=== PATIENT | male | born 1975 | race Caucasian/White ===

== ENCOUNTER 2016-02-29 20:27 | Emergency (ER) | payer OTHER ==
[2016-02-29 20:41] VITALS: BP 130/71; PULSE 109; RESP 18; TEMP 97.6
[2016-02-29] MEDS ORDERED: DIPH,PERTUS(ACELL)TETVAC-LF 0.5 ML VIAL IM ONE (20:56)
--- NOTE | 2016-02-29 21:26 | XR ---
EXAMINATION TYPE: XR finger LT DATE OF EXAM: 02/29/2016 9:06 PM COMPARISON: NONE HISTORY: Laceration TECHNIQUE: 3 views FINDINGS: I see no fracture nor dislocation. There is no sign of a foreign body. There is skin defect at the tuft of the distal phalanx consistent with laceration. IMPRESSION: No fracture. Laceration on the lateral aspect of the distal phalanx of the ring finger.
--- NOTE | 2016-02-29 21:34 | ED ---
Wound/Laceration HPI - General Chief Complaint: Wound/Laceration Stated Complaint: IHS/Finger Lac Time Seen by Provider: 02/29/16 20:55 Source: patient Mode of arrival: ambulatory Limitations: no limitations - History of Present Illness Initial Comments: Patient is a 40-year-old male presenting to the with chief complaint of laceration over the left fourth finger after cutting it at work. Patient reports that he was chopping vegetables and sliced the tip of his finger. He states that they finger pad is still intact. He denies any decreased range of motion in peripheral paresthesias. Patient does not know the status of his tetanus vaccination. Patient denies any recent fever, chills, shortness of breath, chest pain, back pain, abdominal pain, nausea vomiting, numbness or tingling, dysuria or hematuria, constipation or diarrhea, headaches or visual changes, or any other current symptoms - Related Data Home Medications Medication Instructions Recorded Confirmed No Known Home Medications [No 02/29/16 02/29/16 Known Home Medications] Allergies Allergy/AdvReac Type Severity Reaction Status Date / Time tuberculin, purified protein Allergy Swelling,REDNESS Verified 10/16/15 13:49 deriva AND ITCHING/NEGATIVE CHEST XRAY Review of Systems ROS Statement: Those systems with pertinent positive or pertinent negative responses have been documented in the HPI. ROS Other: All systems not noted in ROS Statement are negative. Past Medical History Past Medical History: No Reported History History of Any Multi-Drug Resistant Organisms: None Reported Past Surgical History: Orthopedic Surgery Additional Past Surgical History / Comment(s): rt shoulder Past Anesthesia/Blood Transfusion Reactions: No Reported Reaction Past Psychological History: No Psychological Hx Reported Smoking Status: Current every day smoker Past Alcohol Use History: Occasional Additional Past Alcohol Use History / Comment(s): STARTED SMOKING AT AGE 15 SMOKED 1PPD/ RECENTLY QUIT DRINKING ALCOHOL WAS DRINKING 2 FIFTHS A DAY. PATIENT STATES HE IS A ALCHOLIC"PT STATES WAS SOBER FOR 90DAYS BUT FELL OFF WAGON 6 BEER DRANK LAST NIGHT Past Drug Use History: None Reported - Past Family History Mother Family Medical History: No Reported History General Exam - General Exam Comments Initial Comments: Patient is a pleasant 40-year-old male. He does not appear to be in any acute distress. Limitations: no limitations General appearance: alert, in no apparent distress Head exam: Present: atraumatic, normocephalic, normal inspection Eye exam: Present: normal appearance, PERRL, EOMI. Absent: scleral icterus, conjunctival injection, periorbital swelling ENT exam: Present: normal exam, mucous membranes moist Neck exam: Present: normal inspection. Absent: tenderness, meningismus, lymphadenopathy Respiratory exam: Present: normal lung sounds bilaterally. Absent: respiratory distress, wheezes, rales, rhonchi, stridor Cardiovascular Exam: Present: regular rate, normal rhythm, normal heart sounds. Absent: systolic murmur, diastolic murmur, rubs, gallop, clicks Left Elbow exam: Present: full ROM Forearm Wrist exam: Present: normal inspection, full ROM Hand Wrist exam: Present: laceration (2 cm laceration over the left anterior forefinger at the distal aspect.). Absent: normal inspection Hand L/R Front: 1 - laceration Neuro motor exam: Present: wrist extension intact, thumb opposition intact, thumb IP flexion intact, thumb adduction intact, fingers 2-5 abduction intact Neurosensory exam: Present: 2-point discrimination Back exam: Present: normal inspection Neurological exam: Present: alert, oriented X3, CN II-XII intact Psychiatric exam: Present: normal affect, normal mood Course Vital Signs 02/29/16 20:38 Temperature 97.6 F Pulse Rate 109 H Respiratory 18 Rate Blood Pressure 130/71 O2 Sat by Pulse 95 Oximetry Procedures - Laceration Laceration #1 Indication: laceration Site: hand (Left distal fourth finger.) Size (cm): 2 Description: linear Depth: simple, single layer Anesthetic Used: benzocaine 0.25% Anesthesia Technique: local infiltration Amount (mls): 3 Pre-repair: wound explored, irrigated extensively Type of Sutures: nylon Size of Sutures: 6-0 Number of Sutures: 3 Technique: simple, interrupted Patient Tolerated Procedure: well, no complications Medical Decision Making - Medical Decision Making Patient is a 40-year-old male presenting to the with a laceration over his left distal fourth finger after cutting it at work with a knife. Patient hand was soaked in warm water with iodine. Patient was given 3 sutures. I instructed the patient on return parameters and infection. Patient was given an updated tetanus vaccination. Patient will, and proximally 5-7 days to have the sutures removed. Patient understands treatment plan and will comply. Return parameters were discussed. - Radiology Data Radiology results: report reviewed X-ray of the left fourth finger shows no evidence of any fracture. There is evidence of the laceration. No evidence of any foreign bodies. Disposition Clinical Impression: Finger laceration Disposition: HOME SELF-CARE Condition: Good Instructions: Finger Laceration (ED) Additional Instructions: Please return to the emergency room in 5-7 days to have sutures removed. Please leave wound covered for the first 24-48 hours and then leave open to air after that time. Please use clean soap and water to clean the suture area to prevent scabbing over the top of your sutures. Please watch for any signs of infection which may include but not limited to increased pain, swelling, redness, fever or chills. Please return to the emergency room if any signs of infection do occur. Please return to the emergency room for any other concerns or complications. Referrals: None,Stated [Primary Care Provider] - 1-2 days Time of Disposition: 21:34
== END 2016-02-29 21:30 | disposition home or self-care (01) ==
LOC: EC 20:27
DX: S61.215A Laceration without foreign body of left ring finger without damage to nail, initial encounter (principal); F17.200 Nicotine dependence, unspecified, uncomplicated; Z23 Encounter for immunization; Z88.7 Allergy status to serum and vaccine; W26.0XXA Contact with knife, initial encounter; Y93.G3 Activity, cooking and baking; Y99.0 Civilian activity done for income or pay
CPT/HCPCS: 12001; 90471; 90715; 99283

== ENCOUNTER 2016-03-26 17:56 | Emergency (ER) | payer OTHER ==
[2016-03-26] MEDS ORDERED: SODIUM CHLORIDE 0.9% 1,000 ML IV ONE (18:33)
[2016-03-26] MEDS ORDERED: THIAMINE 100 MG/ML 2 ML VIAL IVP STA (18:33)
--- NOTE | 2016-03-26 18:38 | ED ---
General Adult HPI - General Chief complaint: Altered Mental Status Stated complaint: tingling in finger, confusion, head pressure Time Seen by Provider: 03/26/16 18:20 Source: patient Mode of arrival: wheelchair Limitations: no limitations - History of Present Illness Initial comments: This is a 40-year-old male with a history of alcohol abuse who drinks approximately 1/5 per day for the last 25 years or presents emergency department for mental status changes and confusion. He states he's had had throbbing and palpitations. The generalized body aches. He denies any nausea or vomiting. No diarrhea. No abdominal pain. He admits to some blurred vision however no double vision. No ataxia. He states that he just feels like he can't think appropriately. He states he's been eating normally. He has not ingested any other drugs or medications. Denies any volatile alcohol ingestion. He states is been going on for the last couple of weeks. No other complaints. - Related Data Previous Rx's Medication Instructions Recorded Ondansetron Odt [Zofran Odt] 4 mg PO Q8HR PRN #15 tab 03/26/16 chlordiazePOXIDE HCl [Librium] 25 mg PO TID PRN #30 capsule 03/26/16 Allergies Allergy/AdvReac Type Severity Reaction Status Date / Time tuberculin, purified protein Allergy Swelling/Redness Verified 03/26/16 18:36 deriva and Itching/NEGATIVE chest xray Review of Systems ROS Statement: Those systems with pertinent positive or pertinent negative responses have been documented in the HPI. ROS Other: All systems not noted in ROS Statement are negative. Past Medical History Past Medical History: No Reported History History of Any Multi-Drug Resistant Organisms: None Reported Past Surgical History: Orthopedic Surgery Additional Past Surgical History / Comment(s): rt shoulder Past Anesthesia/Blood Transfusion Reactions: No Reported Reaction Past Psychological History: No Psychological Hx Reported Smoking Status: Current every day smoker Past Alcohol Use History: Abuse, Daily, Heavy Additional Past Alcohol Use History / Comment(s): STARTED SMOKING AT AGE 15 SMOKED 1PPD/ RECENTLY QUIT DRINKING ALCOHOL WAS DRINKING 2 FIFTHS A DAY. PATIENT STATES HE IS A ALCHOLIC"PT STATES WAS SOBER FOR 90DAYS BUT FELL OFF WAGON 6 BEER DRANK LAST NIGHT Past Drug Use History: None Reported - Past Family History Mother Family Medical History: No Reported History General Exam - General Exam Comments Initial Comments: Constitutional: Awake alert Appears comfortable Head: Normocephalic atraumatic Eyes: no conjunctival injection No scleral icterus EOMI, pupils are 3 mm reactive bilaterally, no nystagmus Neck: No JVD Supple Heart: Tachycardia with regular rhythm normal S1-S2 no murmurs Lungs: Clear to auscultation bilaterally No wheezing No rales Abdomen: Soft nondistended nontender Extremities: Non edematous DP pulses intact Radial pulses intact Neuro: A&Ox3 cranial nerves II through XII are grossly intact, no ataxia with finger-nose and heel to bee testing, no pronator drift, no asterixis, 5 out of 5 strength in upper and lower extremities bilaterally Psych: Appropriate mood and affect, tearful Limitations: no limitations Course Vital Signs 03/26/16 03/26/16 18:13 20:05 Temperature 98 F Pulse Rate 109 H 92 Respiratory 22 18 Rate Blood Pressure 137/86 144/97 O2 Sat by Pulse 96 97 Oximetry EKG Findings - EKG Comments: EKG Findings:: EKG showing normal sinus rhythm with a rate of 76. No ST 7 changes or T-wave inversions. QTC is 409. Other intervals are normal. No ectopy. Medical Decision Making - Medical Decision Making Is a 40-year-old male presents emergency department for multiple complaints. He is found to be intoxicated with alcohol level of 341. He does have evidence for alcoholic hepatitis. No other lab abnormalities. Computed tomography scan was unremarkable. Chest x-ray was unremarkable. The patient was comfortable. He received IV fluids and thiamine emergency department. Heart rate improved to 80s to 90s. The patient appears clinically sober at bedside however is can go home with family. I told him that he needs to stop drinking or is going to continue to damage his liver. He agreed and is going to follow-up with [facility]. He was given Librium and Zofran for home. He can return if he has worsening symptoms. All questions were answered. - Lab Data Result diagrams: 03/26/16 19:11 03/26/16 19:11 Lab Results 03/26/16 03/26/16 03/26/16 Range/Units 19:11 19:11 19:11 WBC (3.8-10.6) k/uL RBC (4.30-5.90) m/uL Hgb (13.0-17.5) gm/dL Hct (39.0-53.0) % MCV (80.0-100.0) fL MCH (25.0-35.0) pg MCHC (31.0-37.0) g/dL RDW (11.5-15.5) % Plt Count (150-450) k/uL Neutrophils % % Lymphocytes % % Monocytes % % Eosinophils % % Basophils % % Neutrophils # (1.3-7.7) k/uL Lymphocytes # (1.0-4.8) k/uL Monocytes # (0-1.0) k/uL Eosinophils # (0-0.7) k/uL Basophils # (0-0.2) k/uL PT 9.6 (9.0-12.0) sec INR 0.9 (<1.1) APTT 22.4 (22.0-30.0) sec Sodium 145 (137-145) mmol/L Potassium 3.9 (3.5-5.1) mmol/L Chloride 105 (98-107) mmol/L Carbon Dioxide 24 (22-30) mmol/L Anion Gap 16 mmol/L BUN 8 L (9-20) mg/dL Creatinine 0.70 (0.66-1.25) mg/dL Est GFR (MDRD) Af Amer >60 (>60 ml/min/1.73 sqM) Est GFR (MDRD) Non-Af >60 (>60 ml/min/1.73 sqM) Glucose 175 H (74-99) mg/dL Calcium 9.2 (8.4-10.2) mg/dL Magnesium 1.9 (1.6-2.3) mg/dL Total Bilirubin 0.3 (0.2-1.3) mg/dL AST 198 H (17-59) U/L ALT 218 H (21-72) U/L Alkaline Phosphatase 70 (38-126) U/L Ammonia <9 (<30) umol/L Total Protein 8.4 H (6.3-8.2) g/dL Albumin 4.8 (3.5-5.0) g/dL Amylase 67 (30-110) U/L Lipase 97 (23-300) U/L Urine Color Urine Appearance (Clear) Urine pH (5.0-8.0) Ur Specific [place] (1.001-1.035) Urine Protein (Negative) Urine Glucose (UA) (Negative) Urine Ketones (Negative) Urine Blood (Negative) Urine Nitrate (Negative) Urine Bilirubin (Negative) Urine Urobilinogen (<2.0) mg/dL Ur Leukocyte Esterase (Negative) Urine RBC (0-5) /hpf Urine WBC (0-5) /hpf Urine Bacteria (None) /hpf Urine Mucus (None) /hpf Salicylates <1.0 mg/dL Urine Opiates Screen (NotDetected) Ur Oxycodone Screen (NotDetected) Urine Methadone Screen (NotDetected) Ur Propoxyphene Screen (NotDetected) Acetaminophen <10.0 ug/mL Ur Barbiturates Screen (NotDetected) U Tricyclic Antidepress (NotDetected) Ur Phencyclidine Scrn (NotDetected) Ur Amphetamines Screen (NotDetected) U Methamphetamines Scrn (NotDetected) U Benzodiazepines Scrn (NotDetected) Urine Cocaine Screen (NotDetected) U Marijuana (THC) Screen (NotDetected) Serum Alcohol 341 mg/dL Acetone, Qual Negative (Negative) 03/26/16 03/26/16 Range/Units 19:11 19:11 WBC 5.4 (3.8-10.6) k/uL RBC 4.59 (4.30-5.90) m/uL Hgb 14.5 (13.0-17.5) gm/dL Hct 44.4 (39.0-53.0) % MCV 96.7 (80.0-100.0) fL MCH 31.6 (25.0-35.0) pg MCHC 32.7 (31.0-37.0) g/dL RDW 14.4 (11.5-15.5) % Plt Count 239 (150-450) k/uL Neutrophils % 54 % Lymphocytes % 32 % Monocytes % 4 % Eosinophils % 4 % Basophils % 1 % Neutrophils # 2.9 (1.3-7.7) k/uL Lymphocytes # 1.7 (1.0-4.8) k/uL Monocytes # 0.2 (0-1.0) k/uL Eosinophils # 0.2 (0-0.7) k/uL Basophils # 0.1 (0-0.2) k/uL PT (9.0-12.0) sec INR (<1.1) APTT (22.0-30.0) sec Sodium (137-145) mmol/L Potassium (3.5-5.1) mmol/L Chloride (98-107) mmol/L Carbon Dioxide (22-30) mmol/L Anion Gap mmol/L BUN (9-20) mg/dL Creatinine (0.66-1.25) mg/dL Est GFR (MDRD) Af Amer (>60 ml/min/1.73 sqM) Est GFR (MDRD) Non-Af (>60 ml/min/1.73 sqM) Glucose (74-99) mg/dL Calcium (8.4-10.2) mg/dL Magnesium (1.6-2.3) mg/dL Total Bilirubin (0.2-1.3) mg/dL AST (17-59) U/L ALT (21-72) U/L Alkaline Phosphatase (38-126) U/L Ammonia (<30) umol/L Total Protein (6.3-8.2) g/dL Albumin (3.5-5.0) g/dL Amylase (30-110) U/L Lipase (23-300) U/L Urine Color Yellow Urine Appearance Clear (Clear) Urine pH 5.0 (5.0-8.0) Ur Specific [place] 1.007 (1.001-1.035) Urine Protein 1+ H (Negative) Urine Glucose (UA) Negative (Negative) Urine Ketones Negative (Negative) Urine Blood Trace H (Negative) Urine Nitrate Negative (Negative) Urine Bilirubin Negative (Negative) Urine Urobilinogen <2.0 (<2.0) mg/dL Ur Leukocyte Esterase Negative (Negative) Urine RBC <1 (0-5) /hpf Urine WBC 1 (0-5) /hpf Urine Bacteria Rare H (None) /hpf Urine Mucus Rare H (None) /hpf Salicylates mg/dL Urine Opiates Screen Not Detected (NotDetected) Ur Oxycodone Screen Not Detected (NotDetected) Urine Methadone Screen Not Detected (NotDetected) Ur Propoxyphene Screen Not Detected (NotDetected) Acetaminophen ug/mL Ur Barbiturates Screen Not Detected (NotDetected) U Tricyclic Antidepress Not Detected (NotDetected) Ur Phencyclidine Scrn Not Detected (NotDetected) Ur Amphetamines Screen Not Detected (NotDetected) U Methamphetamines Scrn Not Detected (NotDetected) U Benzodiazepines Scrn Not Detected (NotDetected) Urine Cocaine Screen Not Detected (NotDetected) U Marijuana (THC) Screen Not Detected (NotDetected) Serum Alcohol mg/dL Acetone, Qual (Negative) Disposition Clinical Impression: Alcoholic hepatitis, Alcoholic intoxication Disposition: HOME SELF-CARE Condition: Stable Instructions: Alcohol Intoxication (ED), Alcohol Dependence (ED), Alcoholic Hepatitis (ED) Prescriptions: Ondansetron Odt [Zofran Odt] 4 mg PO Q8HR PRN #15 tab PRN Reason: Nausea chlordiazePOXIDE HCl [Librium] 25 mg PO TID PRN #30 capsule PRN Reason: Withdrawal Referrals: None,Stated [Primary Care Provider] - 1-2 days
[2016-03-26 19:25] LABS: Aty Lym Flag Slight; Basophils # (A) 0.1 k/uL (0-0.2); Basophils % (A) 1 %; CH 31.8; Eosinophils # (A) 0.2 k/uL (0-0.7); Eosinophils % (A) 4 %; HCT 44.4 % (39.0-53.0); HDW 1.95; HGB 14.5 gm/dL (13.0-17.5); Luc # (Auto) 0.26; Luc % (Auto) 5; Lymphocytes # (A) 1.7 k/uL (1.0-4.8); Lymphocytes % (A) 32 %; MCH 31.6 pg (25.0-35.0); MCHC 32.7 g/dL (31.0-37.0); MCV 96.7 fL (80.0-100.0); Monocytes # (A) 0.2 k/uL (0-1.0); Monocytes % (A) 4 %; Neutrophils # (A) 2.9 k/uL (1.3-7.7); Neutrophils % (A) 54 %; RBC 4.59 m/uL (4.30-5.90); RDW 14.4 % (11.5-15.5); WBC 5.4 k/uL (3.8-10.6); WBC (Perox) 5.63
[2016-03-26 19:28] LABS: Appearance,Urine Clear (Clear); Bacteria,Urine Rare /hpf; Bilirubin,Urine Negative (Negative); Glucose,Urine (UA) Negative (Negative); Ketones,Urine Negative (Negative); Leukocyte Esterase,Urine Negative (Negative); Mucus,Urine Rare /hpf; Nitrite,Urine Negative (Negative); Particle Count 1511; Protein,Urine 1+ (Negative); RBC,Urine <1 /hpf (0-5); Specific Gravity,Urine 1.007 (1.001-1.035); UA Billing (MACRO vs. MICRO) MICRO; Urobilinogen,Urine <2.0 mg/dL (<2.0); WBC,Urine 1 /hpf (0-5)
[2016-03-26 19:32] LABS: ALT 218 U/L (21-72); AST 198 U/L (17-59); Acetaminophen <10.0 ug/mL; Alkaline Phosphatase 70 U/L (38-126); Amylase 67 U/L (30-110); Anion Gap 16 mmol/L; Blood Urea Nitrogen 8 mg/dL (9-20); Calcium 9.2 mg/dL (8.4-10.2); Carbon Dioxide 24 mmol/L (22-30); Chloride 105 mmol/L (98-107); Glucose 175 mg/dL (74-99); Magnesium 1.9 mg/dL (1.6-2.3); Non-African American GFR(MDRD) >60 (>60 ml/min/1.73 sqM); Potassium 3.9 mmol/L (3.5-5.1); Salicylate <1.0 mg/dL; Sodium 145 mmol/L (137-145); Total Bilirubin 0.3 mg/dL (0.2-1.3); Total Protein 8.4 g/dL (6.3-8.2)
[2016-03-26 19:34] LABS: INR 0.9 (<1.1); Partial Thromboplastin Time 22.4 sec (22.0-30.0); Prothrombin Time 9.6 sec (9.0-12.0)
[2016-03-26 19:50] LABS: Alcohol 341 mg/dL
--- NOTE | 2016-03-26 19:54 | CT ---
EXAMINATION TYPE: CT brain wo con DATE OF EXAM: 03/26/2016 7:50 PM COMPARISON: 10/08/2015 HISTORY: Pt states of head pressure and confusion. CT DLP: 1024.3 mGycm Automated exposure control for dose reduction was used. FINDINGS: The ventricles and sulci appear normal. There is no mass effect nor midline shift. There is no sign o f intracranial hemorrhage. Calvarium is intact. IMPRESSION: Negative unenhanced head CT scan. No change.
--- NOTE | 2016-03-26 20:15 | XR ---
EXAMINATION TYPE: XR chest 2V DATE OF EXAM: 03/26/2016 7:59 PM COMPARISON: NONE HISTORY: Palpitations TECHNIQUE: Frontal and lateral views of the chest are obtained. FINDINGS: Heart and mediastinum are normal. Lungs are clear. There is a calcified azygos lymph node. There is no pleural effusion. There are no hilar masses. There are chest leads. Bony thorax is intac t. IMPRESSION: No active cardiopulmonary disease.
[2016-03-26 21:05] VITALS: BP 148/96; PULSE 90; RESP 20; TEMP 97.2
== END 2016-03-26 21:05 | disposition home or self-care (01) ==
LOC: EC 17:56
DX: K70.10 Alcoholic hepatitis without ascites (principal); F10.229 Alcohol dependence with intoxication, unspecified; Y90.8 Blood alcohol level of 240 mg/100 ml or more; Z88.7 Allergy status to serum and vaccine; F17.200 Nicotine dependence, unspecified, uncomplicated
CPT/HCPCS: 36415; 93005; 80053; 82140; 82150; 82009; 83690; 83735; 85025; 85610; 85730; 81001; 80306; 83520 ×2; 80320; 71020; 70450; 99285; J3411

== ENCOUNTER 2016-05-24 21:51 | Emergency (ER) | payer OTHER ==
[2016-05-24 22:02] VITALS: BP 146/95; PULSE 93; RESP 16; TEMP 98.2
[2016-05-24] MEDS ORDERED: ACETAMINOPHEN TAB 325 MG TAB PO STA (23:48)
--- NOTE | 2016-05-24 23:52 | ED ---
Alcohol HPI - General Chief Complaint: Alcohol Stated Complaint: hypertension Time Seen by Provider: 05/24/16 23:02 Source: patient, RN notes reviewed Mode of arrival: EMS Limitations: no limitations - History of Present Illness Initial Comments: Patient is a 40-year-old male presents to the emergency room for evaluation high blood pressure. Patient is intoxicated. Patient states that his blood pressure has been spiking all day so he thought he should be evaluated. Patient 's current blood pressure is 122/75. Patient does admit that he drank about 3 beers and a half pint of vodka today. Patient states he drinks daily. Patient states when he sits up too fast he see's spots. Patient states having slight headache. Patient denies dizziness. Patient denies current chest pain, shortness of breath, abdominal pain, nausea, vomiting. Patient states he is mostly concerned about his blood pressure. - Related Data Previous Rx's Medication Instructions Recorded Ondansetron Odt [Zofran Odt] 4 mg PO Q8HR PRN #15 tab 03/26/16 chlordiazePOXIDE HCl [Librium] 25 mg PO TID PRN #30 capsule 03/26/16 Allergies Allergy/AdvReac Type Severity Reaction Status Date / Time tuberculin, purified protein Allergy Swelling/Redness Verified 05/24/16 22:02 deriva and Itching/NEGATIVE chest xray Review of Systems ROS Statement: Those systems with pertinent positive or pertinent negative responses have been documented in the HPI. ROS Other: All systems not noted in ROS Statement are negative. Past Medical History Past Medical History: No Reported History History of Any Multi-Drug Resistant Organisms: None Reported Past Surgical History: Orthopedic Surgery Additional Past Surgical History / Comment(s): rt elbow and shoulder Past Anesthesia/Blood Transfusion Reactions: No Reported Reaction Past Psychological History: No Psychological Hx Reported Smoking Status: Current every day smoker Past Alcohol Use History: Abuse, Daily, Heavy Additional Past Alcohol Use History / Comment(s): STARTED SMOKING AT AGE 15 SMOKED 1PPD/ RECENTLY QUIT DRINKING ALCOHOL WAS DRINKING 2 FIFTHS A DAY. PATIENT STATES HE IS A ALCHOLIC"PT STATES WAS SOBER FOR 90DAYS BUT FELL OFF [place]AGON 6 BEER DRANK LAST NIGHT Past Drug Use History: None Reported - Past Family History Mother Family Medical History: No Reported History General Exam - General Exam Comments Initial Comments: Sitting in exam room, no acute distress. Limitations: no limitations General appearance: alert, appears intoxicated Head exam: Present: atraumatic, normocephalic, normal inspection Eye exam: Present: normal appearance, PERRL, EOMI Pupils: Present: normal accommodation ENT exam: Present: normal exam Neck exam: Present: normal inspection Respiratory exam: Present: normal lung sounds bilaterally. Absent: respiratory distress Cardiovascular Exam: Present: regular rate, normal rhythm, normal heart sounds Extremities exam: Present: normal inspection Back exam: Present: normal inspection Neurological exam: Present: alert Expanded Cranial nerves: EOM's Intact: Normal Sensory exam: Upper Extremity Light Touch: Normal, Lower Extremity Light Touch: Normal Motor strength exam: RUE: 5, LUE: 5, RLE: 5, LLE: 5 Psychiatric exam: Present: normal affect, normal mood Skin exam: Present: warm, dry, intact, normal color. Absent: rash Course Vital Signs 05/24/16 21:55 Temperature 98.2 F Pulse Rate 93 Respiratory 16 Rate Blood Pressure 146/95 O2 Sat by Pulse 97 Oximetry Medical Decision Making - Medical Decision Making Patient is a 40-year-old male presents emergency room for evaluation of high blood pressure. On examination I redid patient's blood pressure and it read 122 /75. Patient given Tylenol for his headache. Discussed with patient to discontinue alcohol use which will improve his blood pressure. Advised patient to follow-up with his primary care provider. Patient is going to take the bus home. Return parameters discussed. Case discussed with Dr. Brandon. Disposition Clinical Impression: Alcohol intoxication, Headache Disposition: HOME SELF-CARE Condition: Good Instructions: Alcohol Intoxication (ED) Additional Instructions: Take Tylenol or Motrin as needed for headache. Refrain from drinking alcohol. Please follow up with primary care provider in 1-2 days. If any new symptom arises or symptoms worsen, return to ER as soon as possible. Referrals: None,Stated [Primary Care Provider] - 1-2 days Time of Disposition: 00:21
== END 2016-05-25 00:46 | disposition home or self-care (01) ==
LOC: EC 21:51
DX: F10.129 Alcohol abuse with intoxication, unspecified (principal); R51 Headache; F17.200 Nicotine dependence, unspecified, uncomplicated; Z88.8 Allergy status to other drugs, medicaments and biological substances
CPT/HCPCS: 99284

== ENCOUNTER 2016-07-18 12:35 | Observation (INO) | payer OTHER ==
[2016-07-18] MEDS ORDERED: SODIUM CHLORIDE 0.9% 1,000 ML IV STA (13:21)
[2016-07-18] MEDS ORDERED: ASPIRIN 81 MG CHEW PO STA (13:21)
[2016-07-18] MEDS ORDERED: NITROGLYCERIN OINT 1 INCH/GM PACKET TOPICAL STA (13:21)
[2016-07-18] MEDS ORDERED: MAG HYDROX/AL HYDROX/SIMETH 30 ML, HYOSCYAMINE ELIXIR 10 ML, CIMETIDINE HCL 300 MG PO STA ×3 (13:22)
[2016-07-18] MEDS ORDERED: DIAZEPAM 5 MG/ML 2 ML SYRINGE IVP STA (13:22)
--- NOTE | 2016-07-18 13:26 | ED ---
General Adult HPI - General Chief complaint: Chest Pain Stated complaint: Tightness in Chest Time Seen by Provider: 07/18/16 12:50 Source: patient, RN notes reviewed Mode of arrival: ambulatory Limitations: no limitations - History of Present Illness Initial comments: This is a 40-year-old male who presents emergency department with past medical history significant for smoking and hypertension. Patient states she also has a strong family history for heart disease. Patient states he is also an alcoholic and he has drank some today. Patient states the last 3 days he's had central chest pain with shortness of breath. Patient states the pain has not subsided all he thought initially it was heartburn but since it continues and is associated with shortness of breath it made him nervous a candidate emergency department. Patient states the pain does radiate to his back. Patient states there is no radiation to the arm or neck. Patient denies any episodes of diaphoresis. Patient denies any episodes of vomiting but he has been nauseated. Patient denies any recent fever chills or cough. Patient denies any history of palpitations. Patient denies any lightheadedness dizziness or near syncopal episode. - Related Data Home Medications Medication Instructions Recorded Confirmed Cholecalciferol [Vitamin D3] 2,000 unit PO DAILY 07/18/16 07/18/16 Lisinopril [Zestril] 10 mg PO DAILY 07/18/16 07/18/16 Naltrexone HCl [Revia] 50 mg PO DAILY 07/18/16 07/18/16 Allergies Allergy/AdvReac Type Severity Reaction Status Date / Time tuberculin, purified protein Allergy Swelling/Redness Verified 07/18/16 14:31 deriva and Itching/NEGATIVE chest xray Review of Systems ROS Statement: Those systems with pertinent positive or pertinent negative responses have been documented in the HPI. ROS Other: All systems not noted in ROS Statement are negative. Past Medical History Past Medical History: Hyperlipidemia History of Any Multi-Drug Resistant Organisms: None Reported Past Surgical History: Orthopedic Surgery Additional Past Surgical History / Comment(s): rt elbow and shoulder Past Anesthesia/Blood Transfusion Reactions: No Reported Reaction Past Psychological History: No Psychological Hx Reported Smoking Status: Current every day smoker Past Alcohol Use History: Abuse, Heavy Additional Past Alcohol Use History / Comment(s): STARTED SMOKING AT AGE 15 SMOKED 1PPD/ RECENTLY QUIT DRINKING ALCOHOL WAS DRINKING 2 FIFTHS A DAY. PATIENT STATES HE IS A ALCHOLIC"PT STATES WAS SOBER FOR 90DAYS BUT FELL OFF WAGON 6 BEER DRANK LAST NIGHT Past Drug Use History: None Reported - Past Family History Mother Family Medical History: No Reported History General Exam - General Exam Comments Initial Comments: GENERAL: Patient is well-developed and well-nourished. Patient is nontoxic and well- hydrated and is in mild distress. ENT: Neck is soft and supple. No significant lymphadenopathy is noted. Oropharynx is clear. Moist mucous membranes. Neck has full range of motion without eliciting any pain. EYES: The sclera were anicteric and conjunctiva were pink and moist. Extraocular movements were intact and pupils were equal round and reactive to light. Eyelids were unremarkable. PULMONARY: Unlabored respirations. Good breath sounds bilaterally. No audible rales rhonchi or wheezing was noted. CARDIOVASCULAR: There is a regular rate and rhythm without any murmurs gallops or rubs. ABDOMEN: Soft and nontender with normal bowel sounds. No palpable organomegaly was noted. There is no palpable pulsatile mass. SKIN: Skin is clear with no lesions or rashes and otherwise unremarkable. NEUROLOGIC: Patient is alert and oriented x3. Cranial nerves II through XII are grossly intact. Motor and sensory are also intact. Normal speech, volume and content. Symmetrical smile. MUSCULOSKELETAL: Normal extremities with adequate strength and full range of motion. No lower extremity swelling or edema. No calf tenderness. LYMPHATICS: No significant lymphadenopathy is noted PSYCHIATRIC: Normal psychiatric evaluation. Normal interpersonal interactions appears functionally intact in deals appropriately with others. No signs of depression. patient is mildly anxious Limitations: no limitations Course Vital Signs 07/18/16 07/18/16 07/18/16 12:48 13:05 13:34 Temperature 98.4 F 97.6 F Pulse Rate 93 85 73 Respiratory 18 16 18 Rate Blood Pressure 106/66 134/65 126/77 O2 Sat by Pulse 97 99 98 Oximetry Medical Decision Making - Medical Decision Making EKG shows normal sinus rhythm at 86 bpm LA interval is 130 QRS is 80 QT interval is 354 QTC is 423. Patient's EKG shows no ST segment elevation or depression or T-wave abdomen is noted. Patient's chest x-ray shows no acute abnormality.patient is going to get heparin because of his risk factors and clinical picture. - Lab Data Result diagrams: 07/18/16 13:40 07/18/16 13:40 Lab Results 07/18/16 07/18/16 07/18/16 Range/Units 13:40 13:40 13:40 WBC 12.2 H (3.8-10.6) k/uL RBC 4.05 L (4.30-5.90) m/uL Hgb 13.4 (13.0-17.5) gm/dL Hct 40.9 (39.0-53.0) % MCV 101.0 H (80.0-100.0) fL MCH 33.2 (25.0-35.0) pg MCHC 32.9 (31.0-37.0) g/dL RDW 14.8 (11.5-15.5) % Plt Count 234 (150-450) k/uL Neutrophils % 79 % Lymphocytes % 15 % Monocytes % 3 % Eosinophils % 2 % Basophils % 1 % Neutrophils # 9.6 H (1.3-7.7) k/uL Lymphocytes # 1.8 (1.0-4.8) k/uL Monocytes # 0.3 (0-1.0) k/uL Eosinophils # 0.2 (0-0.7) k/uL Basophils # 0.1 (0-0.2) k/uL Macrocytosis Slight PT (9.0-12.0) sec INR (<1.1) APTT (22.0-30.0) sec Sodium 137 (137-145) mmol/L Potassium 4.2 (3.5-5.1) mmol/L Chloride 102 (98-107) mmol/L Carbon Dioxide 26 (22-30) mmol/L Anion Gap 9 mmol/L BUN 7 L (9-20) mg/dL Creatinine 0.72 (0.66-1.25) mg/dL Est GFR (MDRD) Af Amer >60 (>60 ml/min/1.73 sqM) Est GFR (MDRD) Non-Af >60 (>60 ml/min/1.73 sqM) Glucose 88 (74-99) mg/dL Calcium 9.1 (8.4-10.2) mg/dL Magnesium 1.9 (1.6-2.3) mg/dL Total Bilirubin 0.6 (0.2-1.3) mg/dL AST 98 H (17-59) U/L ALT 77 H (21-72) U/L Alkaline Phosphatase 54 (38-126) U/L Total Creatine Kinase 302 H (55-170) U/L CK-MB (CK-2) 1.7 (0.0-2.4) ng/mL CK-MB (CK-2) Rel Index 0.6 Troponin I <0.012 (0.000-0.034) ng/mL Total Protein 6.1 L (6.3-8.2) g/dL Albumin 3.7 (3.5-5.0) g/dL Amylase 53 (30-110) U/L Lipase 103 (23-300) U/L Serum Alcohol 175 mg/dL 07/18/16 Range/Units 13:40 WBC (3.8-10.6) k/uL RBC (4.30-5.90) m/uL Hgb (13.0-17.5) gm/dL Hct (39.0-53.0) % MCV (80.0-100.0) fL MCH (25.0-35.0) pg MCHC (31.0-37.0) g/dL RDW (11.5-15.5) % Plt Count (150-450) k/uL Neutrophils % % Lymphocytes % % Monocytes % % Eosinophils % % Basophils % % Neutrophils # (1.3-7.7) k/uL Lymphocytes # (1.0-4.8) k/uL Monocytes # (0-1.0) k/uL Eosinophils # (0-0.7) k/uL Basophils # (0-0.2) k/uL Macrocytosis PT 9.5 (9.0-12.0) sec INR 0.9 (<1.1) APTT 22.3 (22.0-30.0) sec Sodium (137-145) mmol/L Potassium (3.5-5.1) mmol/L Chloride (98-107) mmol/L Carbon Dioxide (22-30) mmol/L Anion Gap mmol/L BUN (9-20) mg/dL Creatinine (0.66-1.25) mg/dL Est GFR (MDRD) Af Amer (>60 ml/min/1.73 sqM) Est GFR (MDRD) Non-Af (>60 ml/min/1.73 sqM) Glucose (74-99) mg/dL Calcium (8.4-10.2) mg/dL Magnesium (1.6-2.3) mg/dL Total Bilirubin (0.2-1.3) mg/dL AST (17-59) U/L ALT (21-72) U/L Alkaline Phosphatase (38-126) U/L Total Creatine Kinase (55-170) U/L CK-MB (CK-2) (0.0-2.4) ng/mL CK-MB (CK-2) Rel Index Troponin I (0.000-0.034) ng/mL Total Protein (6.3-8.2) g/dL Albumin (3.5-5.0) g/dL Amylase (30-110) U/L Lipase (23-300) U/L Serum Alcohol mg/dL Disposition Clinical Impression: Unstable angina pectoris Disposition: ADMITTED IP TO THIS HOSP Referrals: Concetta Doe MD [Primary Care Provider] - 1-2 days Time of Disposition: 15:06
--- NOTE | 2016-07-18 14:00 | XR ---
EXAMINATION TYPE: XR chest 2V DATE OF EXAM: 07/18/2016 COMPARISON: 03/26/16 HISTORY: Chest pain TECHNIQUE: Frontal and lateral views of the chest are obtained. FINDINGS: There is no focal air space opacity. No evidence for pneumothorax. No pleural effusion. The cardiac silhouette size is within normal limits. The osseous structures are grossly intact. IMPRESSION: 1. No acute cardiopulmonary process.
[2016-07-18 14:01] LABS: Basophils # (A) 0.1 k/uL (0-0.2); Basophils % (A) 1 %; CH 33.3; CHCM 33.1; Eosinophils # (A) 0.2 k/uL (0-0.7); Eosinophils % (A) 2 %; HCT 40.9 % (39.0-53.0); HDW 1.86; HGB 13.4 gm/dL (13.0-17.5); Luc # (Auto) 0.19; Luc % (Auto) 2; Lymphocytes # (A) 1.8 k/uL (1.0-4.8); Lymphocytes % (A) 15 %; MCH 33.2 pg (25.0-35.0); MCHC 32.9 g/dL (31.0-37.0); Macrocytosis Slight; Mean Platelet Volume 6.8; Monocytes # (A) 0.3 k/uL (0-1.0); Monocytes % (A) 3 %; Neutrophils # (A) 9.6 k/uL (1.3-7.7); Neutrophils % (A) 79 %; RBC 4.05 m/uL (4.30-5.90); RDW 14.8 % (11.5-15.5); WBC 12.2 k/uL (3.8-10.6); WBC (Perox) 12.67
[2016-07-18 14:10] LABS: INR 0.9 (<1.1); Partial Thromboplastin Time 22.3 sec (22.0-30.0); Prothrombin Time 9.5 sec (9.0-12.0)
[2016-07-18 14:18] LABS: ALT 77 U/L (21-72); AST 98 U/L (17-59); Alkaline Phosphatase 54 U/L (38-126); Amylase 53 U/L (30-110); Anion Gap 9 mmol/L; Blood Urea Nitrogen 7 mg/dL (9-20); Calcium 9.1 mg/dL (8.4-10.2); Carbon Dioxide 26 mmol/L (22-30); Chloride 102 mmol/L (98-107); Glucose 88 mg/dL (74-99); Magnesium 1.9 mg/dL (1.6-2.3); Non-African American GFR(MDRD) >60 (>60 ml/min/1.73 sqM); Potassium 4.2 mmol/L (3.5-5.1); Sodium 137 mmol/L (137-145); Total Bilirubin 0.6 mg/dL (0.2-1.3); Total Protein 6.1 g/dL (6.3-8.2)
[2016-07-18 14:22] LABS: Creatine Kinase 302 U/L (55-170)
[2016-07-18 14:23] LABS: Alcohol 175 mg/dL
[2016-07-18 14:35] LABS: Creatine Kinase MB 1.7 ng/mL (0.0-2.4); Troponin I <0.012 ng/mL (0.000-0.034)
[2016-07-18] MEDS ORDERED: NITROGLYCERIN SL TABS 0.4 MG TAB SUBLINGUAL PRN (15:07)
[2016-07-18] MEDS ORDERED: LORazepam 2 MG/ML SYRINGE IV PRN ×3 (17:14)
[2016-07-18] MEDS ORDERED: ACETAMINOPHEN TAB 325 MG TAB PO PRN (19:38)
[2016-07-18 20:12] LABS: Creatine Kinase 231 U/L (55-170)
[2016-07-18 20:25] LABS: Creatine Kinase MB 1.2 ng/mL (0.0-2.4); Troponin I <0.012 ng/mL (0.000-0.034)
[2016-07-18] MEDS: NITROGLYCERIN OINT 1 INCH/GM PACKET TOPICAL SCH (20:27)
[2016-07-18] MEDS ORDERED: MAG HYDROX/AL HYDROX/SIMETH 30 ML CUP PO PRN (20:43)
[2016-07-18] MEDS ORDERED: NICOTINE 14MG/24HR PATCH TRANSDERM SCH (21:00)
[2016-07-18] MEDS: FAMOTIDINE 20 MG TAB PO SCH (21:08)
--- NOTE | 2016-07-18 22:19 | HP ---
DATE OF ADMISSION: 07/18/2016 REASON FOR ADMISSION: Chest pain. HISTORY OF PRESENT ILLNESS: This is a 48-year-old gentleman who was got history of ongoing tobacco use and hypertension and significant alcohol use currently maintained on Naltrexone, comes into the hospital with complaints of chest pain that started while patient was ambulating. States that pressure is midsternal radiating to the back of his chest. At its worse is about 6 to 7 out of 10. No alleviating or exacerbating factors were discussed. Patient states it may be nitroglycerin has helped with his pain. The patient states that at this time the patient pain is improved. Initially, patient thought it was heartburn, which has been ongoing for about 3 days intermittently. However, the concern for cardiac etiology due to significant family history comes in the hospital for ongoing care. EKG did not reveal any ST-T wave changes. Initial cardiac enzyme was negative. Denies having headaches, blurry vision, urinary urgency or frequency, nausea, vomiting. Fourteen-point review of system was done; none pertinent other than was mentioned above. Home medications include: 1. Vitamin D3. 2. Zestril. 3. Naltrexone. ALLERGIES: ( ) AND PROTEIN. Past medical history includes dyslipidemia, hypertension. PAST SURGICAL HISTORY: Orthopedic surgery on the right elbow and shoulder. SOCIAL HISTORY: Smokes a pack of cigarettes daily, drinks a fifth of alcohol daily. Denies any illicit drug use. PHYSICAL EXAMINATION: VITALS: Temperature is within normal limits, respiratory rate 18, blood pressure 106/66, saturating 97% on room air. GENERALLY: Patient appears to be alert, oriented x3. HEENT: The pupils are equal and reactive to light and accommodation. HEART: S1, S2 present. No murmur appreciated. LUNGS: Good air entry. No wheezing or rhonchi noted. ABDOMINAL EXAM: Soft, nontender, no organomegaly appreciated. GENITOURINARY: No Bergman in place. EXTREMITIES: Pulses can be palpated distally. Denies any tenderness on gross palpation. SKIN: On a gross skin exam does not appear to have any purpura or any skin rashes that were noted. NEUROLOGICALLY: Appears to have tremors nonintentional. No focal motor or sensory deficits noted. Denies having any visual or auditory hallucinations. LABORATORY DATA: Hemoglobin 13.4, hematocrit 40.9, white count 12.2, platelets of 234, sodium 137, potassium 4.2, chloride 102, bicarb 26, BUN 7, creatinine 0.72. ASSESSMENT AND PLAN: 1. Atypical chest pain. Rule out acute coronary syndrome. 2. Acute alcohol withdrawal. 3. History of hypertension. 4. Ongoing tobacco use. PLAN: We will start the patient on CIWA protocol. Patient has already received aspirin. We will rule out ACS with cardiac enzymes. If patient appears to be symptom-free tomorrow we will discuss about obtaining a stress test potentially inpatient or outpatient. We will have cardiology evaluate the patient as well. We will start the patient on MVI bag as well overnight. Will follow.
[2016-07-19] MEDS: THIAMINE 100 MG TAB PO SCH ×2 (01:09→12:28)
[2016-07-19] MEDS: NITROGLYCERIN OINT 1 INCH/GM PACKET TOPICAL SCH ×3 (01:10→12:28)
[2016-07-19 03:00] LABS: Cholesterol 144 mg/dL (<200); HDL Cholesterol 94 mg/dL (40-60); Triglycerides 42 mg/dL (<150)
[2016-07-19 03:59] LABS: Creatine Kinase 264 U/L (55-170)
[2016-07-19 04:08] LABS: Troponin I <0.012 ng/mL (0.000-0.034)
[2016-07-19 08:22] VITALS: RESP 16
[2016-07-19] MEDS: FAMOTIDINE 20 MG TAB PO SCH (08:55)
[2016-07-19] MEDS ORDERED: NALTREXONE HCL 50 MG TAB PO SCH (09:00)
[2016-07-19] MEDS ORDERED: LISINOPRIL 10 MG TAB PO SCH (09:00)
[2016-07-19] MEDS ORDERED: ASPIRIN 325 MG TAB PO SCH (09:00)
--- NOTE | 2016-07-19 09:23 | CONS ---
DATE OF CONSULTATION: Isaiah is a 40-year-old gentleman with history of ETOH abuse, who presented to hospital with chest discomfort. He has history of hypertension and tobacco and comes in with chest pain. He describes a precordial chest discomfort that gets worse with movements and at its worst is about 5/10 intensity. It exacerbates with movements and apparently is relieved with sublingual nitroglycerin. At the time of my evaluation, he is pain free and hemodynamically stable. EKG did not reveal acute ST-T wave changes. Cardiac enzymes have been negative. There is coronary risk factors are in the form of smoking, hypertension, and family history of premature coronary artery disease. Medications at home include: 1. Zestril. 2. Naltrexone. 3. Along with vitamin D. ALLERGIES: There are no known drug allergies. Past medical history is significant for hypertension, and ETOH abuse. Past surgical history is significant for right elbow and shoulder surgery. SOCIAL HISTORY: Significant for smoking and ETOH abuse. REVIEW OF SYSTEMS: HEENT: Unremarkable. CARDIAC: As described above. RESPIRATORY: Negative. GI: Negative. GENITOURINARY: Negative. Allergy/immunology: Negative. SKIN: Negative. MUSCULOSKELETAL: Significant for arthritis. PSYCHOSOCIAL: Negative. ENDOCRINE: Negative. CONSTITUTIONAL: Negative. The rest of the system review is not relevant. On exam he is comfortable at rest. Vital signs are stable. There is no jugular venous distention. Carotid upstroke is normal. There is no bruit. Chest is clear to auscultation and percussion. Heart exam reveals first and second heart sounds. No gallop. ABDOMEN: Soft, nontender. Exam of the extremities did not reveal edema. Peripheral pulses are felt. Labs show that the LDL cholesterol is 42. Creatinine is normal. Hemoglobin is normal at 13.4. EKG does not reveal acute ST-T wave changes and cardiac enzymes are negative. ASSESSMENT: 1. Chest pain, atypical, noncardiac. 2. ETOH abuse with alcohol intoxication. 3. History of hypertension. PLAN: I am going to obtain a 2-D echo on him to document his LV function and wall motion and whenever he is stable from his ETOH withdrawal standpoint, he can be discharged home. I will consider an outpatient stress test on him primarily given the family history of coronary artery disease.
[2016-07-19 11:45] VITALS: BP 137/86; PULSE 57; TEMP 98
--- NOTE | 2016-07-19 13:18 | ECHOF ---
Referral Reason:chest pain MEASUREMENTS -------- HEIGHT: 182.9 cm WEIGHT: 80.3 kg BP: 140/40 RVIDd: 2.2 cm (< 3.3) IVSd: 1.0 cm (0.6 - 1.1) LVIDd: 4.5 cm (3.9 - 5.3) LVPWd: 0.9 cm (0.6 - 1.1) IVSs: 1.4 cm LVIDs: 3.3 cm LVPWs: 1.5 cm LA Diam: 3.0 cm (2.7 - 3.8) Ao Diam: 3.2 cm (2.0 - 3.7) AV Cusp: 2.3 cm (1.5 - 2.6) LA Diam: 3.3 cm (2.7 - 3.8) MV EXCURSION: 24.295 mm (> 18.000) MV EF SLOPE: 130 mm/s (70 - 150) EPSS: 0.6 cm MV E Juan: 0.80 m/s MV DecT: 277 ms MV A Juan: 0.74 m/s MV E/A Ratio: 1.08 RAP: 5.00 mmHg RVSP: 20.01 mmHg FINDINGS -------- Sinus rhythm. This was a technically adequate study. LV size, wall thickness and systolic function are normal, with an EF greater than 55%. The right ventricle is normal in size. The left atrial size is normal. The right atrial size is normal. The aortic valve is trileaflet, and appears structurally normal. No aortic stenosis or regurgitation. Mild mitral annular calcification present. Mild mitral regurgitation is present. Mild tricuspid regurgitation present. There is no evidence of pulmonary hypertension. The right ventricular systolic pressure, as measured by Doppler, is 20.01mmHg. There is no pulmonic regurgitation present. The aortic root size is normal. There is no pericardial effusion. CONCLUSIONS -------- 1. LV size, wall thickness and systolic function are normal, with an EF greater than 55%. 2. Mild mitral annular calcification present. 3. Mild mitral regurgitation is present. 4. Mild tricuspid regurgitation present. 5. There is no evidence of pulmonary hypertension. 6. The right ventricular systolic pressure, as measured by Doppler, is 20.01mmHg. LEARNING COACH: Ambar Cesar RDCS
--- NOTE | 2016-07-19 19:36 | P.DS ---
Providers Date of admission: 07/18/16 15:07 Attending physician: Cipriano Nice Consults: 07/18/16 15:07 Consult Physician Urgent Consulting Provider: [facility] Consult Reason/Comments: unstable angina Do you want consulting provider notified?: Yes Primary care physician: Concetta Doe [facility] Course: Hospital course This is a 48-year-old gentleman who was got history of ongoing tobacco use and hypertension and significant alcohol use currently maintained on Naltrexone, comes into the hospital with complaints of chest pain that started while patient was ambulating. States that pressure is midsternal radiating to the back of his chest. At its worse is about 6 to 7 out of 10. No alleviating or exacerbating factors were discussed. Patient states it may be nitroglycerin has helped with his pain. The patient states that at this time the patient pain is improved. Initially, patient thought it was heartburn, which has been ongoing for about 3 days intermittently. However, the concern for cardiac etiology due to significant family history comes in the hospital for ongoing care. EKG did not reveal any ST-T wave changes. Initial cardiac enzyme was negative. Denies having headaches, blurry vision, urinary urgency or frequency, nausea, vomiting. Fourteen-point review of system was done; none pertinent other than was mentioned above. 07/19/16 doing well denies recurrent symptoms no symptoms on ambulation . PHYSICAL EXAMINATION: GENERALLY: Patient appears to be alert, oriented x3. HEENT: The pupils are equal and reactive to light and accommodation. HEART: S1, S2 present. No murmur appreciated. LUNGS: Good air entry. No wheezing or rhonchi noted. ABDOMINAL EXAM: Soft, nontender, no organomegaly appreciated. GENITOURINARY: No Bergman in place. EXTREMITIES: Pulses can be palpated distally. Denies any tenderness on gross palpation. SKIN: On a gross skin exam does not appear to have any purpura or any skin rashes that were noted. NEUROLOGICALLY: Appears to have tremors nonintentional. No focal motor or sensory deficits noted. Denies having any visual or auditory hallucinations. ASSESSMENT AND PLAN: 1. Atypical chest pain. Ruled out acute coronary syndrome. 2. Acute alcohol withdrawal. Pt has naltrexone, discussed cessation again 3. History of hypertension. 4. Ongoing tobacco use. . Plan - Discharge Summary New Discharge Prescriptions: New RX: Famotidine [Pepcid] 20 mg PO BID #60 tab RX: Mag Hydrox/Al Hydrox/Simeth [Maalox] 30 ml PO Q4HR PRN dose PRN Reason: Gi Upset Continue RX: Naltrexone HCl [Revia] 50 mg PO DAILY RX: Lisinopril [Zestril] 10 mg PO DAILY RX: Cholecalciferol [Vitamin D3] 2,000 unit PO DAILY Discharge Medication List RX: Cholecalciferol [Vitamin D3] 2,000 unit PO DAILY 07/18/16 [History] RX: Lisinopril [Zestril] 10 mg PO DAILY 07/18/16 [History] RX: Naltrexone HCl [Revia] 50 mg PO DAILY 07/18/16 [History] RX: Famotidine [Pepcid] 20 mg PO BID #60 tab 07/19/16 [Rx] RX: Mag Hydrox/Al Hydrox/Simeth [Maalox] 30 ml PO Q4HR PRN dose 07/19/16 [Rx] Follow up Appointment(s)/Referral(s): Concetta Doe MD [Primary Care Provider] - 1-2 days Geronimo Wisdom MD [STAFF PHYSICIAN] - 1 Week Patient Instructions/Handouts: Chest Pain (DC) Discharge Disposition: HOME SELF-CARE
== END 2016-07-19 16:02 | disposition home or self-care (01) ==
LOC: EC 12:35 → 3OBS 15:07
PROVIDERS: ADMIT Hospitalist; ATTEND Hospitalist
DX: R07.89 Other chest pain (principal); R06.02 Shortness of breath; R07.2 Precordial pain; F10.239 Alcohol dependence with withdrawal, unspecified; I10 Essential (primary) hypertension; E78.5 Hyperlipidemia, unspecified; F17.210 Nicotine dependence, cigarettes, uncomplicated; Z82.49 Family history of ischemic heart disease and other diseases of the circulatory system; Z79.899 Other long term (current) drug therapy; Z88.8 Allergy status to other drugs, medicaments and biological substances
CPT/HCPCS: 99285; 96374 ×2; 96361 ×5; 96375; 36415; 93005; 93306; 80061; 80053; 82150; 82550 ×2; 82553 ×2; 83690; 83735; 84484 ×2; 85025; 85610; 85730; 80320; 71020; G0378 ×2; S4990; J2060; J3360

== ENCOUNTER 2016-10-29 20:30 | Emergency (ER) | payer OTHER ==
[2016-10-29] MEDS ORDERED: SODIUM CHLORIDE 0.9% 500 ML IV STA (21:23)
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
--- NOTE | 2016-10-29 21:53 | XR ---
EXAMINATION TYPE: XR chest 1V portable DATE OF EXAM: 10/29/2016 COMPARISON: 07/18/2016 HISTORY: Chest pain TECHNIQUE: Single frontal view of the chest is obtained. FINDINGS: Heart and mediastinum are normal. Lungs are clear. There is no sign of pleural effusion or pneumothorax. Bony thorax is intact. IMPRESSION: Normal chest. No change.
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
--- NOTE | 2016-10-29 22:13 | CT ---
EXAMINATION TYPE: CT brain freda faustin DATE OF EXAM: 10/29/2016 COMPARISON: NONE HISTORY: CT DLP: mGycm Automated exposure control for dose reduction was used. TECHNIQUE: CT scan of the head and cervical spine are performed without contrast. FINDINGS: There is right-sided periorbital soft tissue swelling. Ventricles of normal size. There i s no mass effect nor midline shift. There is no sign of intracranial hemorrhage. The calvarium is int act. The cervical vertebra have normal alignment. There is degenerative spurring of the endplates at C3-4 and C6-7. There is some encroachment into the spinal canal to a mild degree at C6-7. The skull base i s intact. I see no fracture. IMPRESSION: Negative CT scan of the brain. Spondylotic changes in the cervical spine. No fracture.
[2016-10-29 22:28] LABS: Appearance,Urine Clear (Clear); Bilirubin,Urine Negative (Negative); Glucose,Urine (UA) Negative (Negative); Ketones,Urine Negative (Negative); Leukocyte Esterase,Urine Negative (Negative); Nitrite,Urine Negative (Negative); PH, Urine 5.5 (5.0-8.0); Protein,Urine Negative (Negative); Specific Gravity,Urine 1.003 (1.001-1.035); UA Billing (MACRO vs. MICRO) CHEM; Urobilinogen,Urine <2.0 mg/dL (<2.0)
[2016-10-29 22:29] LABS: Basophils # (A) 0.1 k/uL (0-0.2); Basophils % (A) 0 %; CH 33.4; CHCM 33.6; Eosinophils # (A) 0.1 k/uL (0-0.7); Eosinophils % (A) 1 %; HCT 42.6 % (39.0-53.0); HDW 1.97; HGB 14.5 gm/dL (13.0-17.5); Luc # (Auto) 0.18; Luc % (Auto) 1; Lymphocytes # (A) 1.3 k/uL (1.0-4.8); Lymphocytes % (A) 8 %; MCH 34.1 pg (25.0-35.0); MCHC 34.1 g/dL (31.0-37.0); MCV 99.9 fL (80.0-100.0); Mean Platelet Volume 6.8; Monocytes # (A) 0.6 k/uL (0-1.0); Monocytes % (A) 3 %; Neutrophils # (A) 14.6 k/uL (1.3-7.7); Neutrophils % (A) 87 %; RBC 4.27 m/uL (4.30-5.90); RDW 12.9 % (11.5-15.5); WBC 16.9 k/uL (3.8-10.6); WBC (Perox) 17.55
[2016-10-29 22:35] LABS: ALT 71 U/L (21-72); AST 57 U/L (17-59); Alkaline Phosphatase 63 U/L (38-126); Anion Gap 12 mmol/L; Blood Urea Nitrogen 7 mg/dL (9-20); Calcium 9.1 mg/dL (8.4-10.2); Carbon Dioxide 19 mmol/L (22-30); Chloride 100 mmol/L (98-107); Glucose 101 mg/dL (74-99); Non-African American GFR(MDRD) >60 (>60 ml/min/1.73 sqM); Sodium 131 mmol/L (137-145); Total Bilirubin 0.4 mg/dL (0.2-1.3); Total Protein 6.1 g/dL (6.3-8.2)
[2016-10-29 22:36] LABS: Partial Thromboplastin Time 22.6 sec (22.0-30.0); Prothrombin Time 9.9 sec (9.0-12.0)
[2016-10-29] MEDS ORDERED: SODIUM CHLORIDE 0.9% 2,500 ML IV ONE (22:36)
[2016-10-29 22:38] LABS: Alcohol 224 mg/dL
[2016-10-30 00:39] VITALS: BP 136/84; PULSE 110; RESP 16; TEMP 99
[2016-10-30] MEDS ORDERED: SODIUM CHLORIDE 0.9% 1,000 ML IV STA (00:39)
== END 2016-10-30 00:42 | disposition home or self-care (01) ==
LOC: EC 20:30
DX: S02.2XXA Fracture of nasal bones, initial encounter for closed fracture (principal); S01.81XA Laceration without foreign body of other part of head, initial encounter; S09.90XA Unspecified injury of head, initial encounter; F10.120 Alcohol abuse with intoxication, uncomplicated; F17.200 Nicotine dependence, unspecified, uncomplicated; Z79.899 Other long term (current) drug therapy; Z88.7 Allergy status to serum and vaccine; Y04.0XXA Assault by unarmed brawl or fight, initial encounter; Y93.55 Activity, bike riding
CPT/HCPCS: 36415; 70450; 70486; 71010; 72125; 80053; 80306; 80320; 81003; 83605; 84484; 85025; 85610; 85730; 86850; 86900; 86901; 93005; 96360; 96361; 99285

== ENCOUNTER 2017-09-03 09:20 | Emergency (ER) | payer OTHER ==
[2017-09-03 09:36] VITALS: RESP 18
--- NOTE | 2017-09-03 10:07 | XR ---
EXAMINATION TYPE: XR hand complete LT DATE OF EXAM: 09/03/2017 CLINICAL HISTORY: Left hand injury with pain between the first and second digit. TECHNIQUE: Frontal, lateral and oblique images of the left hand are obtained. COMPARISON: None. FINDINGS: There is no acute fracture/dislocation evident in the left hand. The there are mild deg enerative changes of the first carpal metacarpal joint with opposing surface sclerosis and joint spac e narrowing. Additionally these changes are seen with small marginal osteophytes of the distal interp halangeal joints and the first metacarpal phalangeal joint. Within the scaphoid distal pole there is a solitary osseous cysts, typically degenerative. The overlying soft tissue appears unremarkable. IMPRESSION: 1. No acute fracture or dislocation in the left hand. 2. Mild arthropathy of the first carpometacarpal joint and distal interphalangeal joints in atypical distribution of osteoarthritis.
--- NOTE | 2017-09-03 10:31 | ED ---
Upper Extremity HPI - General Chief Complaint: Extremity Injury, Upper Stated Complaint: left hand injury Time Seen by Provider: 09/03/17 09:39 Source: patient, RN notes reviewed, old records reviewed Mode of arrival: ambulatory Limitations: no limitations - History of Present Illness Initial Comments: Patient is a 41-year-old male presents emergency Department chief complaint of left hand pain. Patient reports that he fell one week ago cut himself on his left hand. Patient states that he had pain and swelling initially but then it improved. Patient reports that yesterday he donated plasma. He states he woke up this morning and his hand was swollen. Patient reports that he has had no other symptoms. Reports no peripheral paresthesias. No previous injury fractures hand. - Related Data Home Medications Medication Instructions Recorded Confirmed Lisinopril [Zestril] 10 mg PO QAM 07/18/16 09/03/17 Cholecalciferol (Vitamin D3) 2,000 unit PO DAILY 10/29/16 09/03/17 [Vitamin D3] Omeprazole 20 mg PO DAILY 09/03/17 09/03/17 Venlafaxine HCl ER [Effexor Xr] 37.5 mg PO DAILY 09/03/17 09/03/17 Previous Rx's Medication Instructions Recorded Ibuprofen 800 mg PO TID #20 tablet 09/03/17 Allergies Allergy/AdvReac Type Severity Reaction Status Date / Time tuberculin, purified protein Allergy Swelling/Redness Verified 09/03/17 09:58 deriva and Itching/NEGATIVE chest xray Review of Systems ROS Statement: Those systems with pertinent positive or pertinent negative responses have been documented in the HPI. ROS Other: All systems not noted in ROS Statement are negative. Past Medical History Past Medical History: Hypertension Additional Past Medical History / Comment(s): ETOH,PER PT" LIVER ENZYMES ELEVATED", PAST FALL, RT ELBO FX(SX DONE), HAND TREMORS History of Any Multi-Drug Resistant Organisms: None Reported Past Surgical History: Orthopedic Surgery Additional Past Surgical History / Comment(s): rt elbow PLATE/SCREWS and rt shoulder torn ligament -repair done, wisdom teeth extracted. Past Anesthesia/Blood Transfusion Reactions: No Reported Reaction Past Psychological History: Depression Smoking Status: Current every day smoker Past Alcohol Use History: Daily Past Drug Use History: Marijuana - Past Family History Mother Family Medical History: Congestive Heart Failure (CHF) Additional Family Medical History / Comment(s): AT AGE 62 FROM CHF. MOM'S PARENTS BOTH HAD CARDIAC PROBLEMS AND HAD CABG"S General Exam - General Exam Comments Initial Comments: 41-year-old male. Alert and oriented. Limitations: no limitations General appearance: alert, in no apparent distress Head exam: Present: atraumatic, normocephalic, normal inspection Eye exam: Present: normal appearance, PERRL, EOMI. Absent: scleral icterus, conjunctival injection, periorbital swelling ENT exam: Present: normal exam, mucous membranes moist Neck exam: Present: normal inspection. Absent: tenderness, meningismus, lymphadenopathy Respiratory exam: Present: normal lung sounds bilaterally. Absent: respiratory distress, wheezes, rales, rhonchi, stridor Cardiovascular Exam: Present: regular rate, normal rhythm, normal heart sounds. Absent: systolic murmur, diastolic murmur, rubs, gallop, clicks GI/Abdominal exam: Present: soft, normal bowel sounds. Absent: distended, tenderness, guarding, rebound, rigid Extremities exam: Present: normal inspection, full ROM, normal capillary refill. Absent: tenderness, pedal edema, joint swelling, calf tenderness Left Upper Arm exam: Present: normal inspection, full ROM Elbow exam: Present: normal inspection, full ROM Forearm Wrist exam: Present: full ROM, swelling (She reports some tenderness and swelling over the snuffbox.). Absent: normal inspection Hand Wrist exam: Present: full ROM, tenderness (Over snuffbox.), swelling. Absent: normal inspection Neuro motor exam: Present: wrist extension intact, thumb opposition intact, thumb IP flexion intact, thumb adduction intact, fingers 2-5 abduction intact Vascular: Present: normal capillary refill Back exam: Present: normal inspection Neurological exam: Present: alert, oriented X3, CN II-XII intact Psychiatric exam: Present: normal affect, normal mood Skin exam: Present: warm, dry, intact, normal color. Absent: rash Course Vital Signs 09/03/17 09:32 Temperature 98.8 F Pulse Rate 88 Respiratory 18 Rate Blood Pressure 114/73 O2 Sat by Pulse 98 Oximetry Procedures - Orthopedic Splinting/Casting Injury #1 Side: left Upper Extremity Injury Location: hand Upper Extremity Immobilizer: thumb spica, Severiano wrap, synthetic pre-padded splint Medical Decision Making - Medical Decision Making This is a 41-year-old male presents emergency Department chief complaint of left hand pain. He reports that he injured it one week ago. He states that the swelling diminished after that time. He states that yesterday after donating plasma has had some swelling in the hand. He reports pain over the snuffbox. At this time x-rays reviewed and shows no evidence of acute fracture. There is evidence of osteoarthritis within the first carpometacarpal joint. He was placed in a thumb spica splint. Discussed WITH orthopedic. Discussed likely the swelling is more related to the recent plasma donation. Patient understands treatment plan will comply. Return parameters were discussed. Discussed rest ice and elevate the extremity. - Radiology Data Radiology results: report reviewed No acute fracture dislocation of the left hand. Mild arthropathy of the first minute carpometacarpal joint distal interphalangeal joints and atypical distribution of osteoporosis radius. Disposition Clinical Impression: Hand sprain Disposition: HOME SELF-CARE Condition: Good Instructions: Hand Sprain (ED) Additional Instructions: Rest, ice, elevate extremity. Patient should wear a splint. Follow-up with ortho 1 week for repeat x-ray. Prescriptions: Ibuprofen 800 mg PO TID #20 tablet Is patient prescribed a controlled substance at d/c from ED?: No When asked, does pt state using other controlled substances?: No If prescribed controlled substance>3 days was MAPS reviewed?: No If opioid is for acute pain is fill amount 7 days or less?: No If Rx opioid, was Start Talking consent form obtained?: No Referrals: Concetta Doe MD [Primary Care Provider] - 1-2 days Time of Disposition: 10:29
[2017-09-03 11:13] VITALS: BP 130/83; PULSE 83; TEMP 98.2
== END 2017-09-03 11:12 | disposition home or self-care (01) ==
LOC: EC 09:20
DX: S63.92XA Sprain of unspecified part of left wrist and hand, initial encounter (principal); M19.042 Primary osteoarthritis, left hand; I10 Essential (primary) hypertension; F32.9 Major depressive disorder, single episode, unspecified; F17.200 Nicotine dependence, unspecified, uncomplicated; Z88.8 Allergy status to other drugs, medicaments and biological substances; Z79.899 Other long term (current) drug therapy; W19.XXXA Unspecified fall, initial encounter
CPT/HCPCS: 29125; 99284

== ENCOUNTER 2017-09-27 10:04 | Emergency (ER) | payer OTHER ==
[2017-09-27 10:11] VITALS: BP 106/67; PULSE 92; RESP 18; TEMP 98.4
--- NOTE | 2017-09-27 10:18 | ED ---
General Adult HPI - General Chief complaint: Extremity Injury, Lower Stated complaint: Left Hand Injury Time Seen by Provider: 09/27/17 10:12 Source: patient, RN notes reviewed Mode of arrival: ambulatory Limitations: no limitations - History of Present Illness Initial comments: Patient's a 41-year-old male presented to the emergency room today with chief complaint of an injury to the left wrist area. He does admit that it was a trip and fall that occurred a few weeks ago. He states is still bothering him. States it is worse with certain movements. Patient denies any other complaints or symptoms. Patient denies any recent fever, chills, shortness of breath, chest pain, back pain, abdominal pain, nausea or vomiting, numbness or tingling, headaches or visual changes, or any other complaints. - Related Data Home Medications Medication Instructions Recorded Confirmed RX: Lisinopril [Zestril] 10 mg PO QAM 07/18/16 09/27/17 Cholecalciferol (Vitamin D3) 2,000 unit PO DAILY 10/29/16 09/27/17 [Vitamin D3] RX: Omeprazole 20 mg PO DAILY 09/03/17 09/27/17 Venlafaxine HCl ER [Effexor Xr] 37.5 mg PO DAILY 09/03/17 09/27/17 Previous Rx's Medication Instructions Recorded RX: Ibuprofen 800 mg PO TID #20 tablet 09/03/17 Allergies Allergy/AdvReac Type Severity Reaction Status Date / Time tuberculin, purified protein Allergy Swelling/Redness Verified 09/27/17 10:11 deriva and Itching/NEGATIVE chest xray Review of Systems ROS Statement: Those systems with pertinent positive or pertinent negative responses have been documented in the HPI. ROS Other: All systems not noted in ROS Statement are negative. Past Medical History Past Medical History: Hypertension Additional Past Medical History / Comment(s): ETOH,PER PT" LIVER ENZYMES ELEVATED", PAST FALL, RT ELBO FX(SX DONE), HAND TREMORS History of Any Multi-Drug Resistant Organisms: None Reported Past Surgical History: Orthopedic Surgery Additional Past Surgical History / Comment(s): rt elbow PLATE/SCREWS and rt shoulder torn ligament -repair done, wisdom teeth extracted. Past Anesthesia/Blood Transfusion Reactions: No Reported Reaction Past Psychological History: Depression Smoking Status: Current every day smoker Past Alcohol Use History: Daily Past Drug Use History: Marijuana - Past Family History Mother Family Medical History: Congestive Heart Failure (CHF) Additional Family Medical History / Comment(s): AT AGE 62 FROM CHF. MOM'S PARENTS BOTH HAD CARDIAC PROBLEMS AND HAD CABG"S General Exam - General Exam Comments Initial Comments: General: The patient is awake and alert, in no distress, and does not appear acutely ill. Eye: extra-ocular movements are intact. No nystagmus. There is normal conjunctiva bilaterally. No signs of icterus. Ears, nose, mouth and throat: There are moist mucous membranes and no oral lesions. Neck: The neck is supple Musculoskeletal: Normal ROM. Bilaterally tender over the proximal and second metacarpals and radial wrist area. Radial pulse 2+. Strength 5/5. Sensations intact. Neurological: A&O x 3. CN II-XII intact, There are no obvious motor or sensory deficits. Coordination appears grossly intact. Speech is normal. Skin: Skin is warm and dry and no rashes or lesions are noted. Psychiatric: Cooperative, appropriate mood & affect, normal judgment. Limitations: no limitations Course Vital Signs 09/27/17 10:08 Temperature 98.4 F Pulse Rate 92 Respiratory 18 Rate Blood Pressure 106/67 O2 Sat by Pulse 96 Oximetry Medical Decision Making - Medical Decision Making Patient's x-ray has been reviewed and is negative for any evidence of fracture dislocation. Has been 3 weeks. Patient was given a Severiano wrap here the emergency room. Advised no to sleep with this on. Advised continued ice elevate the affected area and use ibuprofen for pain. Advised return for any other concerns. Disposition Clinical Impression: Wrist sprain Disposition: HOME SELF-CARE Condition: Good Instructions: Wrist Sprain (ED) Additional Instructions: Please continue to ice elevate the affected area and use ibuprofen for pain. Please follow-up with orthopedics over the next 2 days. Please return to emergency room for any other concerns. Is patient prescribed a controlled substance at d/c from ED?: No Referrals: Concetta Doe MD [Primary Care Provider] - 1-2 days Tani Winter MD [Medical Doctor] - 1-2 days Time of Disposition: 11:15
--- NOTE | 2017-09-27 10:33 | XR ---
EXAMINATION TYPE: XR wrist complete LT , 4 VIEWS DATE OF EXAM ORDERED: 09/27/2017 HISTORY: Pain. COMPARISON: None. FINDINGS: There is pseudocystic change in the scaphoid. No fracture, dislocation or other acute osse ous lesion is seen. IMPRESSION: NO ACUTE OSSEOUS LESION.
== END 2017-09-27 11:40 | disposition home or self-care (01) ==
LOC: EC 10:04
DX: S63.502A Unspecified sprain of left wrist, initial encounter (principal); I10 Essential (primary) hypertension; F32.9 Major depressive disorder, single episode, unspecified; F17.200 Nicotine dependence, unspecified, uncomplicated; Z79.899 Other long term (current) drug therapy; Z88.7 Allergy status to serum and vaccine; W01.0XXA Fall on same level from slipping, tripping and stumbling without subsequent striking against object, initial encounter
CPT/HCPCS: 99283

== ENCOUNTER 2017-11-02 20:29 | Observation (INO) | payer OTHER ==
[~2017-11-02 20:29] MED LIST: THIAMINE 100 MG TAB PO SCH
[2017-11-02] MEDS ORDERED: SODIUM CHLORIDE 0.9% 1,000 ML IV STA (21:02)
[2017-11-02] MEDS ORDERED: SODIUM CHLORIDE 0.9% 1,000 ML with MVI, ADULT NO.4 WITH VIT K 10 ML, THIAMINE 100 MG, F... IV ONE ×4 (21:02)
[2017-11-02 21:13] LABS: Basophils # (A) 0.1 k/uL (0-0.2); Basophils % (A) 1 %; Eosinophils # (A) 0.3 k/uL (0-0.7); Eosinophils % (A) 3 %; HCT 42.4 % (39.0-53.0); HGB 13.8 gm/dL (13.0-17.5); Lymphocytes # (A) 2.7 k/uL (1.0-4.8); Lymphocytes % (A) 27 %; MCH 32.5 pg (25.0-35.0); MCHC 32.5 g/dL (31.0-37.0); MCV 99.9 fL (80.0-100.0); Mean Platelet Volume 6.6; Monocytes # (A) 0.4 k/uL (0-1.0); Monocytes % (A) 4 %; Neutrophils # (A) 6.3 k/uL (1.3-7.7); Neutrophils % (A) 63 %; Platelet Count 337 k/uL (150-450); RBC 4.25 m/uL (4.30-5.90); RDW 14.1 % (11.5-15.5)
[2017-11-02 21:15] LABS: Appearance,Urine Clear (Clear); Bilirubin,Urine Negative (Negative); Blood,Urine Negative (Negative); Color,Urine Light Yellow; Glucose,Urine (UA) Negative (Negative); Ketones,Urine Negative (Negative); Leukocyte Esterase,Urine Negative (Negative); Nitrite,Urine Negative (Negative); PH, Urine 5.5 (5.0-8.0); Protein,Urine Negative (Negative); Specific Gravity,Urine 1.003 (1.001-1.035); Urobilinogen,Urine <2.0 mg/dL (<2.0)
[2017-11-02 21:27] LABS: ALT 33 U/L (21-72); AST 27 U/L (17-59); Albumin 3.4 g/dL (3.5-5.0); Alkaline Phosphatase 41 U/L (38-126); Anion Gap 8 mmol/L; Blood Urea Nitrogen 9 mg/dL (9-20); Calcium 8.9 mg/dL (8.4-10.2); Carbon Dioxide 26 mmol/L (22-30); Chloride 105 mmol/L (98-107); Glucose 86 mg/dL (74-99); Lipase 57 U/L (23-300); Magnesium 1.9 mg/dL (1.6-2.3); Potassium 4.2 mmol/L (3.5-5.1); Sodium 139 mmol/L (137-145); Total Bilirubin 0.3 mg/dL (0.2-1.3); Total Protein 6.1 g/dL (6.3-8.2)
[2017-11-02 21:36] LABS: Alcohol 341 mg/dL
[2017-11-02] MEDS ORDERED: ONDANSETRON 4 MG/2 ML VIAL IVP PRN (21:54)
[2017-11-02] MEDS ORDERED: LORazepam 2 MG/ML INJ IV PRN ×3 (21:54)
--- NOTE | 2017-11-02 21:54 | ED ---
Alcohol HPI - General Source: patient, police, EMS, RN notes reviewed Mode of arrival: EMS Limitations: altered mental status <Camron Bravo - Last Filed: 11/02/17 21:52> <Robina Amezquita - Last Filed: 11/03/17 22:44> - General Chief Complaint: Alcohol Stated Complaint: ETOH Time Seen by Provider: 11/02/17 20:34 - History of Present Illness Initial Comments: 41-year-old male presents emergency department via EMS for alcohol intoxication. Patient was found sleeping on the sidewalk. Patient states he drinks at least a fifth per day. Patient has no specific complaints. Denies being suicidal or homicidal denies headache, dizziness, chest pain, shortness breath, abdominal pain, nausea vomiting. (Camron Bravo) - Related Data Home Medications Medication Instructions Recorded Confirmed Cholecalciferol (Vitamin D3) 2,000 unit PO DAILY 10/29/16 11/02/17 [Vitamin D3] Omeprazole 20 mg PO DAILY 09/03/17 11/02/17 Venlafaxine HCl ER [Effexor Xr] 37.5 mg PO DAILY 09/03/17 11/02/17 Ibuprofen 800 mg PO TID PRN 11/02/17 11/02/17 Loperamide [Imodium] 2 mg PO DAILY 11/02/17 11/02/17 Allergies Allergy/AdvReac Type Severity Reaction Status Date / Time tuberculin, purified protein Allergy Swelling/Redness Verified 11/02/17 22:07 deriva and Itching/NEGATIVE chest xray Review of Systems ROS Other: All systems not noted in ROS Statement are negative. <Camron Bravo - Last Filed: 11/02/17 21:52> ROS Other: All systems not noted in ROS Statement are negative. <Robina Amezquita - Last Filed: 11/03/17 22:44> ROS Statement: Those systems with pertinent positive or pertinent negative responses have been documented in the HPI. Past Medical History Past Medical History: Hypertension Additional Past Medical History / Comment(s): ETOH,PER PT" LIVER ENZYMES ELEVATED", PAST FALL, RT ELBO FX(SX DONE), HAND TREMORS History of Any Multi-Drug Resistant Organisms: None Reported Past Surgical History: Orthopedic Surgery Additional Past Surgical History / Comment(s): rt elbow PLATE/SCREWS and rt shoulder torn ligament -repair done, wisdom teeth extracted. Past Anesthesia/Blood Transfusion Reactions: No Reported Reaction Past Psychological History: Depression Smoking Status: Current every day smoker Past Alcohol Use History: Abuse, Daily Past Drug Use History: Marijuana - Past Family History Mother Family Medical History: Congestive Heart Failure (CHF) Additional Family Medical History / Comment(s): AT AGE 62 FROM CHF. MOM'S PARENTS BOTH HAD CARDIAC PROBLEMS AND HAD CABG"S <Camron Bravo - Last Filed: 11/02/17 21:52> General Exam Limitations: no limitations General appearance: alert, in no apparent distress, appears intoxicated Head exam: Present: atraumatic, normocephalic, normal inspection Eye exam: Present: normal appearance, PERRL, EOMI. Absent: scleral icterus, conjunctival injection, periorbital swelling ENT exam: Present: normal exam, normal oropharynx, mucous membranes moist Neck exam: Present: normal inspection, full ROM. Absent: tenderness, meningismus, lymphadenopathy Respiratory exam: Present: normal lung sounds bilaterally. Absent: respiratory distress, wheezes, rales, rhonchi, stridor Cardiovascular Exam: Present: regular rate, normal rhythm, normal heart sounds. Absent: systolic murmur, diastolic murmur, rubs, gallop, clicks GI/Abdominal exam: Present: soft, normal bowel sounds. Absent: distended, tenderness, guarding, rebound, rigid Neurological exam: Present: alert, oriented X3, CN II-XII intact, reflexes normal. Absent: motor sensory deficit <Camron Bravo - Last Filed: 11/02/17 21:52> Vital Signs 11/02/17 20:35 Temperature 98.4 F Pulse Rate 86 Respiratory 20 Rate Blood Pressure 99/55 O2 Sat by Pulse 99 Oximetry Medical Decision Making - Lab Data Result diagrams: 11/02/17 21:07 11/02/17 21:07 <Camron Bravo - Last Filed: 11/02/17 21:52> - Lab Data Result diagrams: 11/02/17 21:07 11/02/17 21:07 <Robina Amezquita - Last Filed: 11/03/17 22:44> - Medical Decision Making 41-year-old male presented for alcohol intoxication. Patient will be admitted at this time with alcohol level 341. Patient will have Ativan withdrawal protocol (Camron Bravo) - Lab Data Lab Results 11/02/17 11/02/17 11/02/17 Range/Units 21:03 21:07 21:07 WBC 10.0 (3.8-10.6) k/uL RBC 4.25 L (4.30-5.90) m/uL Hgb 13.8 (13.0-17.5) gm/dL Hct 42.4 (39.0-53.0) % MCV 99.9 (80.0-100.0) fL MCH 32.5 (25.0-35.0) pg MCHC 32.5 (31.0-37.0) g/dL RDW 14.1 (11.5-15.5) % Plt Count 337 (150-450) k/uL Neutrophils % 63 % Lymphocytes % 27 % Monocytes % 4 % Eosinophils % 3 % Basophils % 1 % Neutrophils # 6.3 (1.3-7.7) k/uL Lymphocytes # 2.7 (1.0-4.8) k/uL Monocytes # 0.4 (0-1.0) k/uL Eosinophils # 0.3 (0-0.7) k/uL Basophils # 0.1 (0-0.2) k/uL Sodium 139 (137-145) mmol/L Potassium 4.2 (3.5-5.1) mmol/L Chloride 105 (98-107) mmol/L Carbon Dioxide 26 (22-30) mmol/L Anion Gap 8 mmol/L BUN 9 (9-20) mg/dL Creatinine 0.71 (0.66-1.25) mg/dL Est GFR (CKD-EPI)AfAm >90 (>60 ml/min/1.73 sqM) Est GFR (CKD-EPI)NonAf >90 (>60 ml/min/1.73 sqM) Glucose 86 (74-99) mg/dL Calcium 8.9 (8.4-10.2) mg/dL Magnesium 1.9 (1.6-2.3) mg/dL Total Bilirubin 0.3 (0.2-1.3) mg/dL AST 27 (17-59) U/L ALT 33 (21-72) U/L Alkaline Phosphatase 41 (38-126) U/L Total Protein 6.1 L (6.3-8.2) g/dL Albumin 3.4 L (3.5-5.0) g/dL Lipase 57 (23-300) U/L Urine Color Light Yellow Urine Appearance Clear (Clear) Urine pH 5.5 (5.0-8.0) Ur Specific [place] 1.003 (1.001-1.035) Urine Protein Negative (Negative) Urine Glucose (UA) Negative (Negative) Urine Ketones Negative (Negative) Urine Blood Negative (Negative) Urine Nitrite Negative (Negative) Urine Bilirubin Negative (Negative) Urine Urobilinogen <2.0 (<2.0) mg/dL Ur Leukocyte Esterase Negative (Negative) Serum Alcohol 341 H* mg/dL Disposition <Camron Bravo M - Last Filed: 11/02/17 21:52> <Robina Amezquita - Last Filed: 11/03/17 22:44> Clinical Impression: Alcoholic intoxication Disposition: ADMITTED IP TO THIS HOSP Condition: Stable
[2017-11-03 01:41] VITALS: BMI 24.3
[2017-11-03 06:14] VITALS: BP 106/67; PULSE 68; RESP 18; TEMP 97.5
[2017-11-03] MEDS ORDERED: LOPERAMIDE 2 MG CAP PO PRN (07:43)
[2017-11-03] MEDS ORDERED: IBUPROFEN 800 MG TAB PO PRN (07:43)
[2017-11-03] MEDS ORDERED: PANTOPRAZOLE 40 MG TABLET PO SCH (08:00)
[2017-11-03] MEDS ORDERED: VENLAFAXINE HCL ER 37.5 MG CAP PO SCH (09:00)
[2017-11-03] MEDS ORDERED: LISINOPRIL 10 MG TAB PO SCH (09:00)
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
--- NOTE | 2017-11-03 09:32 | P.DS ---
Providers Date of admission: 11/02/17 22:39 Attending physician: Cipriano Nice Primary care physician: Concetta Doe [facility] Course: Please refer to my HPI Patient Condition at Discharge: Stable Plan - Discharge Summary New Discharge Prescriptions: Discontinued Lisinopril [Zestril] 10 mg PO QAM No Action Cholecalciferol (Vitamin D3) [Vitamin D3] 2,000 unit PO DAILY Venlafaxine HCl ER [Effexor Xr] 37.5 mg PO DAILY Omeprazole 20 mg PO DAILY Loperamide [Imodium] 2 mg PO DAILY Ibuprofen 800 mg PO TID PRN PRN Reason: Pain Discharge Medication List Cholecalciferol (Vitamin D3) [Vitamin D3] 2,000 unit PO DAILY 10/29/16 [History] Omeprazole 20 mg PO DAILY 09/03/17 [History] Venlafaxine HCl ER [Effexor Xr] 37.5 mg PO DAILY 09/03/17 [History] Ibuprofen 800 mg PO TID PRN 11/02/17 [History] Loperamide [Imodium] 2 mg PO DAILY 11/02/17 [History] Follow up Appointment(s)/Referral(s): Concetta Doe MD [Primary Care Provider] - 3 Days
[2017-11-03] MEDS ORDERED: CHOLECALCIFEROL 1,000 UNIT TAB PO SCH (12:00)
== END 2017-11-03 11:15 | disposition home or self-care (01) ==
LOC: EC 20:29 → 5MS5E 22:39
PROVIDERS: ADMIT Hospitalist; ATTEND Hospitalist
DX: F10.129 Alcohol abuse with intoxication, unspecified (principal); Y90.8 Blood alcohol level of 240 mg/100 ml or more; I10 Essential (primary) hypertension; K21.9 Gastro-esophageal reflux disease without esophagitis; F32.9 Major depressive disorder, single episode, unspecified; I95.9 Hypotension, unspecified; Z71.6 Tobacco abuse counseling; F17.210 Nicotine dependence, cigarettes, uncomplicated; Z82.49 Family history of ischemic heart disease and other diseases of the circulatory system; Z79.899 Other long term (current) drug therapy; Z88.8 Allergy status to other drugs, medicaments and biological substances
CPT/HCPCS: 96366 ×2; 82075; 96361; 96365; 99285; 36415; 80053; 83690; 83735; 85025; 81003; G0378 ×2; G0480; J3411; 80320

== ENCOUNTER 2017-12-02 16:22 | Emergency (ER) | payer OTHER ==
[2017-12-02 16:35] VITALS: BP 103/67; PULSE 96; RESP 16; TEMP 97.7
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
== END 2017-12-02 17:47 | disposition home or self-care (01) ==
LOC: EC 16:22
DX: R49.9 Unspecified voice and resonance disorder (principal); R07.0 Pain in throat; F32.9 Major depressive disorder, single episode, unspecified; F17.200 Nicotine dependence, unspecified, uncomplicated; Z71.6 Tobacco abuse counseling; Z79.899 Other long term (current) drug therapy; Z88.8 Allergy status to other drugs, medicaments and biological substances; Y09 Assault by unspecified means
CPT/HCPCS: 70491; 99284; Q9967

== ENCOUNTER 2018-08-04 17:53 | Emergency (ER) | payer OTHER ==
[2018-08-04 18:00] VITALS: TEMP 98.5
[2018-08-04] MEDS ORDERED: SODIUM CHLORIDE 0.9% 1,000 ML IV STA (18:57)
[2018-08-04 19:10] LABS: Basophils # (A) 0.1 k/uL (0-0.2); Basophils % (A) 1 %; Eosinophils # (A) 0.2 k/uL (0-0.7); Eosinophils % (A) 3 %; HCT 45.3 % (39.0-53.0); HGB 14.3 gm/dL (13.0-17.5); Lymphocytes # (A) 2.2 k/uL (1.0-4.8); Lymphocytes % (A) 29 %; MCH 31.7 pg (25.0-35.0); MCHC 31.6 g/dL (31.0-37.0); MCV 100.4 fL (80.0-100.0); Macrocytosis Slight; Mean Platelet Volume 6.8; Monocytes # (A) 0.4 k/uL (0-1.0); Monocytes % (A) 6 %; Neutrophils # (A) 4.3 k/uL (1.3-7.7); Neutrophils % (A) 57 %; Platelet Count 346 k/uL (150-450); RBC 4.51 m/uL (4.30-5.90); RDW 14.8 % (11.5-15.5); WBC 7.5 k/uL (3.8-10.6)
--- NOTE | 2018-08-04 19:14 | ED ---
General Adult HPI - General Chief complaint: Urogenital Stated complaint: unable to urinate Time Seen by Provider: 08/04/18 17:59 Source: patient, RN notes reviewed, old records reviewed Mode of arrival: ambulatory Limitations: no limitations - History of Present Illness Initial comments: 42-year-old male patient presents to ED with difficulty urinating. Patient reports that for approximately last 4 days he has had some mild urinary hesitancy and decreased stream. Patient reports that he was able to urinate without difficulty earlier today. Patient worse after he donated plasma he has not urinated since. Patient does report that he does have a patient and he feels as if he needs to urinate. Denies any recent falls or trauma. Denies any numbness tingling in the genital area. Denies any other complaints. Denies chest pain shortness breath abdominal pain nausea vomiting or diarrhea. Denies any concern for sexually transmitted infections. Denies a history of prostate hyperplasia or pathology. Systemic: Pt denies fatigue, fever/chills, rash. Pt denies weakness, night sweats, weight loss. Neuro: Pt denies headache, visual disturbances, syncope or pre-syncope. HEENT: Pt denies ocular discharge or irritation, otalgia, rhinorrhea, phar yngitis or notable lymphadenopathy. Cardiopulmonary: Pt denies chest pain, SOB, heart palpitations, dyspnea on exertion. Abdominal/GI: Pt denies abdominal pain, n/v/d. : Pt denies dysuria, burning w/ urination, frequency/urgency. Denies new onset urinary or bowel incontinence. MSK: Pt denies myalgia, loss of strength or function in extremities. Neuro: Pt denies new onset weakness, paresthesias. - Related Data Home Medications Medication Instructions Recorded Confirmed Cholecalciferol (Vitamin D3) 2,000 unit PO DAILY 10/29/16 08/04/18 [Vitamin D3] Omeprazole 20 mg PO DAILY 09/03/17 08/04/18 Ibuprofen 800 mg PO DAILY 11/02/17 08/04/18 Loperamide [Imodium] 2 mg PO BID 11/02/17 08/04/18 Lisinopril [Prinivil] 10 mg PO DAILY 08/04/18 08/04/18 Lisinopril [Prinivil] 20 mg PO DAILY 08/04/18 08/04/18 amLODIPine [Norvasc] 5 mg PO HS 08/04/18 08/04/18 Previous Rx's Medication Instructions Recorded Cephalexin [Keflex] 500 mg PO Q6HR 7 Days #28 cap 08/04/18 Allergies Allergy/AdvReac Type Severity Reaction Status Date / Time tuberculin, purified protein Allergy Swelling/Redness Verified 08/04/18 18:16 deriva and Itching/NEGATIVE chest xray Review of Systems ROS Statement: Those systems with pertinent positive or pertinent negative responses have been documented in the HPI. ROS Other: All systems not noted in ROS Statement are negative. Past Medical History Past Medical History: Hypertension Additional Past Medical History / Comment(s): ETOH,PER PT" LIVER ENZYMES ELEVATED", RT ELBOW FX(SX DONE), HAND TREMORS History of Any Multi-Drug Resistant Organisms: None Reported Past Surgical History: Orthopedic Surgery Additional Past Surgical History / Comment(s): rt elbow PLATE/SCREWS and rt shoulder torn ligament -repair done, wisdom teeth extracted. Past Anesthesia/Blood Transfusion Reactions: No Reported Reaction Past Psychological History: Depression Smoking Status: Current every day smoker Past Alcohol Use History: Abuse, Daily Past Drug Use History: Marijuana - Past Family History Mother Family Medical History: Congestive Heart Failure (CHF) Additional Family Medical History / Comment(s): AT AGE 62 FROM CHF. MOM'S PARENTS BOTH HAD CARDIAC PROBLEMS AND HAD CABG'S General Exam - General Exam Comments Initial Comments: Constitutional: NAD, AOX3, Pt has pleasant affect. HEENT: NC/AT, trachea midline, neck supple, no lymphadenopathy. Posterior pharynx non erythematous, without exudates. External ears appear normal, without discharge. Mucous membranes moist. Eyes PERRLA, EOM intact. There is no scleral icterus. No pallor noted. Cardiopulmonary: RRR, no murmurs, rubs or gallops, no JVD noted. Lungs CTAB in anterior and posterior watson. No peripheral edema. Abdominal exam: Abdomen soft and non-distended. Abdomen non-tender to palpation in all 4 quadrants. Bowel sounds active in LLQ. No hepatosplenomegaly. No ecchymosis Neuro: CN II-XII grossly intact. No nuchal rigidity. No raccon eyes, no acharya sign, no hemotympanum. No cervical spinal tenderness. MSK: No posterior calf tenderness bilaterally, homans sign negative bilaterally. Posterior tibialis and radial pulse +2 bilaterally. Sensation intact in upper and lower extremities. Full active ROM in upper and lower extremities, 5/5 stregnth. Limitations: no limitations Course Vital Signs 08/04/18 08/04/18 17:57 18:56 Temperature 98.5 F Pulse Rate 117 H 100 Respiratory 18 18 Rate Blood Pressure 102/67 109/60 O2 Sat by Pulse 96 100 Oximetry Medical Decision Making - Medical Decision Making 42-year-old male patient presents to ED with difficulty urinating. Patient reports that for approximately last 4 days he has had some mild urinary hesitancy and decreased stream. Patient reports that he was able to urinate without difficulty earlier today. Patient worse after he donated plasma he has not urinated since. Patient does report that he does have a patient and he feels as if he needs to urinate. Denies any recent falls or trauma. Denies any numbness tingling in the genital area. Denies any other complaints. Denies chest pain shortness breath abdominal pain nausea vomiting or diarrhea. Denies any concern for sexually transmitted infections. Denies a history of prostate hyperplasia or pathology. Patient vital signs stable, afebrile. Physical exam did not display acute pathology. Patient declined rectal exam. Laboratory investigation revealed nonspecific CBC, CMP. Patient has chronically elevated liver enzymes. UA displayed urinary tract infection. Patient again declined anything for STI, declines to be treated for sexually has been infection. Patient will be discharged with Keflex. Patient administered 1 g Rocephin ED. Patient was able to urinate without any intervention. Patient to follow up with primary care provider. Case discussed with Dr. Kuhn. - Lab Data Result diagrams: 08/04/18 18:00 08/04/18 18:00 Lab Results 08/04/18 08/04/18 08/04/18 Range/Units 18:00 18:00 19:30 WBC 7.5 (3.8-10.6) k/uL RBC 4.51 (4.30-5.90) m/uL Hgb 14.3 (13.0-17.5) gm/dL Hct 45.3 (39.0-53.0) % MCV 100.4 H (80.0-100.0) fL MCH 31.7 (25.0-35.0) pg MCHC 31.6 (31.0-37.0) g/dL RDW 14.8 (11.5-15.5) % Plt Count 346 (150-450) k/uL Neutrophils % 57 % Lymphocytes % 29 % Monocytes % 6 % Eosinophils % 3 % Basophils % 1 % Neutrophils # 4.3 (1.3-7.7) k/uL Lymphocytes # 2.2 (1.0-4.8) k/uL Monocytes # 0.4 (0-1.0) k/uL Eosinophils # 0.2 (0-0.7) k/uL Basophils # 0.1 (0-0.2) k/uL Macrocytosis Slight Sodium 136 L (137-145) mmol/L Potassium 4.3 (3.5-5.1) mmol/L Chloride 104 (98-107) mmol/L Carbon Dioxide 24 (22-30) mmol/L Anion Gap 8 mmol/L BUN 10 (9-20) mg/dL Creatinine 1.01 (0.66-1.25) mg/dL Est GFR (CKD-EPI)AfAm >90 (>60 ml/min/1.73 sqM) Est GFR (CKD-EPI)NonAf >90 (>60 ml/min/1.73 sqM) Glucose 151 H (74-99) mg/dL Calcium 9.0 (8.4-10.2) mg/dL Total Bilirubin 0.6 (0.2-1.3) mg/dL AST 234 H (17-59) U/L ALT 157 H (21-72) U/L Alkaline Phosphatase 59 (38-126) U/L Total Protein 6.3 (6.3-8.2) g/dL Albumin 3.7 (3.5-5.0) g/dL Urine Color Yellow Urine Appearance Clear (Clear) Urine pH 6.0 (5.0-8.0) Ur Specific [place] 1.008 (1.001-1.035) Urine Protein Negative (Negative) Urine Glucose (UA) Negative (Negative) Urine Ketones Negative (Negative) Urine Blood Negative (Negative) Urine Nitrite Negative (Negative) Urine Bilirubin Negative (Negative) Urine Urobilinogen <2.0 (<2.0) mg/dL Ur Leukocyte Esterase Small H (Negative) Urine RBC 1 (0-5) /hpf Urine WBC 18 H (0-5) /hpf Ur Squamous Epith Cells <1 (0-4) /hpf Urine Bacteria Rare H (None) /hpf Hyaline Casts 23 H (0-2) /lpf Urine Mucus Rare H (None) /hpf Disposition Clinical Impression: UTI (urinary tract infection) Disposition: HOME SELF-CARE Condition: Stable Instructions (If sedation given, give patient instructions): Urinary Tract Infe ction in Men (ED) Additional Instructions: Patient to adhere to previously discussed treatment plan and will take medication(s) as directed. Patient to follow up with PCP in 1-2 days. Patient to return to ED if symptoms do not improve. Take medications as directed. Follow up with primary care provider tomorrow. Prescriptions: Cephalexin [Keflex] 500 mg PO Q6HR 7 Days #28 cap Is patient prescribed a controlled substance at d/c from ED?: No Referrals: Concetta Doe MD [Primary Care Provider] - 1-2 days
[2018-08-04 19:21] LABS: ALT 157 U/L (21-72); AST 234 U/L (17-59); African American GFR (CKD) >90 (>60 ml/min/1.73 sqM); Albumin 3.7 g/dL (3.5-5.0); Alkaline Phosphatase 59 U/L (38-126); Anion Gap 8 mmol/L; Blood Urea Nitrogen 10 mg/dL (9-20); Carbon Dioxide 24 mmol/L (22-30); Chloride 104 mmol/L (98-107); Glucose 151 mg/dL (74-99); Potassium 4.3 mmol/L (3.5-5.1); Sodium 136 mmol/L (137-145); Total Bilirubin 0.6 mg/dL (0.2-1.3); Total Protein 6.3 g/dL (6.3-8.2)
[2018-08-04 19:50] LABS: Appearance,Urine Clear (Clear); Bacteria,Urine Rare /hpf; Bilirubin,Urine Negative (Negative); Blood,Urine Negative (Negative); Color,Urine Yellow; Glucose,Urine (UA) Negative (Negative); Hyaline Casts,Urine 23 /lpf (0-2); Ketones,Urine Negative (Negative); Leukocyte Esterase,Urine Small (Negative); Mucus,Urine Rare /hpf; Nitrite,Urine Negative (Negative); Protein,Urine Negative (Negative); RBC,Urine 1 /hpf (0-5); Specific Gravity,Urine 1.008 (1.001-1.035); Squamous Epithelial Cell,Urine <1 /hpf (0-4); Urobilinogen,Urine <2.0 mg/dL (<2.0); WBC,Urine 18 /hpf (0-5)
[2018-08-04] MEDS ORDERED: cefTRIAXone IN SWFI 1,000 MG/10 ML SYRINGE IVP STA (19:59)
[2018-08-04 20:27] VITALS: BP 116/87; PULSE 70; RESP 16
[2018-08-06 13:40] LABS: N. gonorrhoeae,PCR Negative (Neg,Equiv); Neisseria Source Urine
[2018-08-06 13:59] LABS: C. trachomatis,PCR Negative (Neg,Equiv); Chlamydia trachomatis Source Urine
== END 2018-08-04 20:36 | disposition home or self-care (01) ==
LOC: EC 17:53
DX: N39.0 Urinary tract infection, site not specified (principal); I10 Essential (primary) hypertension; F17.200 Nicotine dependence, unspecified, uncomplicated; Z79.899 Other long term (current) drug therapy; Z88.8 Allergy status to other drugs, medicaments and biological substances
CPT/HCPCS: 51798; 36415; 80053; 85025; 81001; 87491; 87591; 87086; 99284; 96374; 96361 ×2; J0696

== ENCOUNTER → 2019-08-02 | Outpatient (CLI) | payer OTHER ==
--- NOTE | 2019-08-02 08:15 | US ---
EXAMINATION TYPE: US abdomen complete DATE OF EXAM: 08/02/2019 COMPARISON: NONE CLINICAL HISTORY: R74.8 ELEVATED LIVER ENZYMES. abn labs EXAM MEASUREMENTS: Liver Length: 20.9 cm Gallbladder Wall: 0.2 cm CBD: 0.6 cm Spleen: 9.7 cm Right Kidney: 10.9 x 5.2 x 4.4 cm Left Kidney: 11.8 x 5.0 x 5.8 cm Pancreas: wnl Liver: Increased attenuation, decreased visualization of vessels suggestive of fatty infiltrate. Ap pears coarse, enlarged and echogenic. Gallbladder: wnl Evidence for sonographic Brown's sign: neg CBD: wnl Spleen: wnl Right Kidney: No hydronephrosis or masses seen Left Kidney: No hydronephrosis or masses seen Upper IVC: Obscured by overlying bowel gas Abd Aorta: wnl The intrahepatic portion of the IVC and proximal abdominal aorta are within normal limits. There is no evidence of cholelithiasis. Common bile duct is unremarkable. The visualized portions of the cavazos creas are homogenous. The spleen is unremarkable. Kidneys are symmetric and free of hydronephrosis. No renal lesions are seen. IMPRESSION: Hepatomegaly with underlying fatty hepatic infiltration versus diffuse hepatocellular disease.
== END | disposition home or self-care (01) ==
LOC: RADUSWWP 07:42
PROVIDERS: ATTEND Family Medicine
DX: R74.8 Abnormal levels of other serum enzymes (principal)
CPT/HCPCS: 76700

== ENCOUNTER 2019-09-24 14:42 | Emergency (ER) | payer OTHER ==
[2019-09-24 14:50] VITALS: RESP 18
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
[2019-09-24 15:52] LABS: Basophils # (A) 0.1 k/uL (0-0.2); Basophils % (A) 2 %; Eosinophils # (A) 0.2 k/uL (0-0.7); Eosinophils % (A) 3 %; HCT 40.8 % (39.0-53.0); Lymphocytes # (A) 1.6 k/uL (1.0-4.8); Lymphocytes % (A) 19 %; MCV 112.8 fL (80.0-100.0); Macrocytosis Marked; Mean Platelet Volume 7.8; Monocytes # (A) 0.3 k/uL (0-1.0); Monocytes % (A) 4 %; Neutrophils # (A) 5.9 k/uL (1.3-7.7); Neutrophils % (A) 70 %; Platelet Count 309 k/uL (150-450); RBC 3.62 m/uL (4.30-5.90); RDW 14.1 % (11.5-15.5); WBC 8.4 k/uL (3.8-10.6)
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
[2019-09-24 16:09] LABS: ALT 75 U/L (4-49); AST 148 U/L (17-59); African American GFR (CKD) >90 (>60 ml/min/1.73 sqM); Albumin 3.9 g/dL (3.5-5.0); Alkaline Phosphatase 125 U/L (38-126); Anion Gap 12 mmol/L; Blood Urea Nitrogen 9 mg/dL (9-20); Calcium 9.2 mg/dL (8.4-10.2); Carbon Dioxide 20 mmol/L (22-30); Chloride 110 mmol/L (98-107); Glucose 129 mg/dL (74-99); Non-African American GFR(CKD) >90 (>60 ml/min/1.73 sqM); Potassium 3.7 mmol/L (3.5-5.1); Sodium 142 mmol/L (137-145); Total Bilirubin 0.7 mg/dL (0.2-1.3); Total Protein 7.4 g/dL (6.3-8.2)
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
[2019-09-24 16:23] LABS: INR 1.1 (<1.2); Partial Thromboplastin Time 21.2 sec (22.0-30.0); Prothrombin Time 10.9 sec (9.0-12.0)
[2019-09-24] MEDS ORDERED: LIDOCAINE 1% INJ 10MG/ML (20 ML MDV) SQ ONE (16:25)
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
[2019-09-24 16:33] VITALS: BP 118/85; PULSE 98; TEMP 98.1
== END 2019-09-24 16:53 | disposition home or self-care (01) ==
LOC: EC 14:42
DX: S51.811A Laceration without foreign body of right forearm, initial encounter (principal); S70.11XA Contusion of right thigh, initial encounter; J44.9 Chronic obstructive pulmonary disease, unspecified; R09.02 Hypoxemia; F10.10 Alcohol abuse, uncomplicated; I10 Essential (primary) hypertension; Z87.81 Personal history of (healed) traumatic fracture; Z98.890 Other specified postprocedural states; Z79.899 Other long term (current) drug therapy; Z91.048 Other nonmedicinal substance allergy status; Y93.55 Activity, bike riding; V28.4XXA Motorcycle driver injured in noncollision transport accident in traffic accident, initial encounter; Y92.488 Other paved roadways as the place of occurrence of the external cause
CPT/HCPCS: 82075; 36415; 93005; 80053; 85025; 85610; 85730; 71045; 72125; 70450; 71260; 74177; 99285; 12001; J2001; Q9967

== ENCOUNTER 2020-05-02 16:11 | Emergency (ER) | payer OTHER ==
[2020-05-02 16:47] VITALS: BP 131/85; TEMP 98.1
[2020-05-02] MEDS ORDERED: LIDOCAINE 1% INJ 10MG/ML (20 ML MDV) SQ ONE (17:30)
[2020-05-02] MEDS ORDERED: BACITRACIN OINT 1 EACH PACKET TOPICAL ONE (17:30)
[2020-05-02] MEDS ORDERED: DIPH,PERTUS(ACELL)TETVAC-LF 0.5 ML VIAL IM ONE (17:30)
--- NOTE | 2020-05-02 18:05 | ED ---
Wound/Laceration HPI - General Chief Complaint: Wound/Laceration Stated Complaint: Finger lac Time Seen by Provider: 05/02/20 17:05 Source: patient Mode of arrival: ambulatory Limitations: no limitations - History of Present Illness Initial Comments: 44-year-old male patient presents to the emergency department today for evaluation of laceration to the right middle finger. Patient states he was at work on 2:30 this afternoon a knife fell off the counter and he went to grab it cutting himself. Denies cleansing the area. Denies taking any blood thinning medications. Denies pain to the area. Denies any other injuries. Patient denies any headache, neck pain, back pain, chest pain, shortness of breath, dizziness, weakness, abdominal pain, nausea, vomiting, or difficulties with bowel movements or urination. - Related Data Home Medications Medication Instructions Recorded Confirmed Cholecalciferol (Vitamin D3) 2,000 unit PO DAILY 10/29/16 08/04/18 [Vitamin D3] Omeprazole 20 mg PO DAILY 09/03/17 08/04/18 Ibuprofen 800 mg PO DAILY 11/02/17 08/04/18 Loperamide [Imodium] 2 mg PO BID 11/02/17 08/04/18 Lisinopril [Prinivil] 10 mg PO DAILY 08/04/18 08/04/18 amLODIPine [Norvasc] 5 mg PO HS 08/04/18 08/04/18 lisinopriL [Prinivil] 20 mg PO DAILY 08/04/18 08/04/18 Previous Rx's Medication Instructions Recorded Cephalexin [Keflex] 500 mg PO Q6HR 7 Days #28 cap 08/04/18 Allergies Allergy/AdvReac Type Severity Reaction Status Date / Time tuberculin, purified protein Allergy Swelling/Redness Verified 05/02/20 16:46 deriva and Itching/NEGATIVE chest xray Review of Systems ROS Statement: Those systems with pertinent positive or pertinent negative responses have been documented in the HPI. ROS Other: All systems not noted in ROS Statement are negative. Past Medical History Past Medical History: Hypertension Additional Past Medical History / Comment(s): ETOH,PER PT" LIVER ENZYMES ELEVATED", RT ELBOW FX(SX DONE), HAND TREMORS History of Any Multi-Drug Resistant Organisms: None Reported Past Surgical History: Orthopedic Surgery Additional Past Surgical History / Comment(s): rt elbow PLATE/SCREWS and rt shoulder torn ligament -repair done, wisdom teeth extracted. Past Anesthesia/Blood Transfusion Reactions: No Reported Reaction Past Psychological History: Depression Smoking Status: Current every day smoker Past Alcohol Use History: Abuse, Daily Past Drug Use History: Marijuana - Past Family History Mother Family Medical History: Congestive Heart Failure (CHF) Additional Family Medical History / Comment(s): AT AGE 62 FROM CHF. MOM'S PARENTS BOTH HAD CARDIAC PROBLEMS AND HAD CABG'S General Exam Limitations: no limitations General appearance: alert, in no apparent distress Eye exam: Present: PERRL Respiratory exam: Present: normal lung sounds bilaterally. Absent: respiratory distress, wheezes, rales, rhonchi, stridor Cardiovascular Exam: Present: regular rate, normal rhythm, normal heart sounds. Absent: systolic murmur, diastolic murmur, rubs, gallop, clicks Extremities exam: Present: full ROM, normal capillary refill, other (There is 3 cm laceration noted to the distal tip of the right middle finger. No active bleeding. Into the areas pink, warm, dry. Cap refill less than 3 seconds. Radial pulses 2+.). Absent: normal inspection, tenderness, pedal edema, joint swelling, calf tenderness Neurological exam: Present: alert, oriented X3, CN II-XII intact Psychiatric exam: Present: normal affect, normal mood Skin exam: Present: warm, dry, intact, normal color. Absent: rash Course Vital Signs 05/02/20 05/02/20 16:43 18:21 Temperature 98.1 F Pulse Rate 110 H 98 Respiratory 17 18 Rate Blood Pressure 131/85 O2 Sat by Pulse 9 L 98 Oximetry Procedures - Laceration Laceration #1 Consent Obtained: verbal consent Indication: laceration Site: hand (Right Middle finger) Size (cm): 3 Description: flap Depth: simple, single layer Anesthetic Used: lidocaine 1% Anesthesia Technique: local infiltration Amount (mls): 2 Pre-repair: irrigated extensively Type of Sutures: nylon Size of Sutures: 5-0 Number of Sutures: 4 Technique: simple, interrupted Patient Tolerated Procedure: well, no complications Medical Decision Making - Medical Decision Making 44-year-old male patient presented to the emergency department today for evaluation of right middle finger. Physical examination did reveal a 3 cm flap laceration to the distal tip. No active bleeding. I did cleanse the area and irrigate. Wound was repaired as documented. Patient tolerated the procedure well. He'll be discharged follow up with the primary care physician for recheck in 1-2 days. He is instructed to return in 7 days to have the stitches removed. Educated regarding wound care and signs or symptoms of infection. Return parameters were discussed in detail. He verbalizes understanding and agrees with this plan. Case discussed with my attending Dr. Hamilton. Disposition Clinical Impression: Laceration of right middle finger Disposition: HOME SELF-CARE Condition: Good Instructions (If sedation given, give patient instructions): Care For Your Stitches (ED), Laceration (ED) Additional Instructions: Keep wound clean and dry. Cleanse twice daily with warm water and antibacterial soap. Avoid submersion in water. Return in 7 days to have the stitches removed. Monitor for signs or symptoms of infection including but not limited to redness, swelling, drainage of pus, fever, or chills. Follow-up with her primary care physician for recheck in 1-2 days. Return to the emergency department for any new, worsening, or concerning symptoms. Is patient prescribed a controlled substance at d/c from ED?: No Referrals: Concetta Doe MD [Primary Care Provider] - 1-2 days Time of Disposition: 18:05
[2020-05-02 18:23] VITALS: PULSE 98; RESP 18
== END 2020-05-02 18:23 | disposition home or self-care (01) ==
LOC: EC 16:11
DX: S61.212A Laceration without foreign body of right middle finger without damage to nail, initial encounter (principal); I10 Essential (primary) hypertension; F32.9 Major depressive disorder, single episode, unspecified; F17.200 Nicotine dependence, unspecified, uncomplicated; W26.0XXA Contact with knife, initial encounter
CPT/HCPCS: 99282; 12002; 90471; J2001

== ENCOUNTER 2020-07-17 11:55 | Emergency (ER) | payer OTHER ==
--- NOTE | 2020-07-17 12:43 | XR ---
EXAMINATION TYPE: XR wrist complete RT DATE OF EXAM: 07/17/2020 CLINICAL HISTORY: Pain after injury. TECHNIQUE: Frontal, lateral and oblique images of the right wrist are obtained. 4 view scaphoid vie w is performed. COMPARISON: Right wrist x-ray October 06, 2015 FINDINGS: There is no acute fracture/dislocation evident in the right wrist. The joint spaces in th e right wrist appear within normal limits. The overlying soft tissue appears unremarkable. IMPRESSION: There is no acute fracture or dislocation in the right wrist. No significant change from prior.
--- NOTE | 2020-07-17 14:25 | ED ---
General Adult HPI - General Chief complaint: Extremity Injury, Upper Stated complaint: arm injury, swelling Time Seen by Provider: 07/17/20 13:46 Source: patient Mode of arrival: ambulatory Limitations: no limitations - History of Present Illness Initial comments: 44-year-old male presents to the emergency room for chief complaint of right wrist pain. Patient reports he has had wrist pain for the past 2 days. States he was doing yard work 2 days ago and felt a pain in his wrist. States that throughout the past 2 days the pain has continued and does not seem to be improving. Patient has been taking Motrin for pain which does help. Patient denies any pain in the hand.Patient has no other complaints at this time including shortness of breath, chest pain, abdominal pain, nausea or vomiting, headache, or visual changes. - Related Data Home Medications Medication Instructions Recorded Confirmed Cholecalciferol (Vitamin D3) 2,000 unit PO DAILY 10/29/16 08/04/18 [Vitamin D3] Omeprazole 20 mg PO DAILY 09/03/17 08/04/18 Ibuprofen 800 mg PO DAILY 11/02/17 08/04/18 Loperamide [Imodium] 2 mg PO BID 11/02/17 08/04/18 Lisinopril [Prinivil] 10 mg PO DAILY 08/04/18 08/04/18 amLODIPine [Norvasc] 5 mg PO HS 08/04/18 08/04/18 lisinopriL [Prinivil] 20 mg PO DAILY 08/04/18 08/04/18 Previous Rx's Medication Instructions Recorded Cephalexin [Keflex] 500 mg PO Q6HR 7 Days #28 cap 08/04/18 Allergies Allergy/AdvReac Type Severity Reaction Status Date / Time tuberculin, purified protein Allergy Swelling/Redness Verified 07/17/20 12:24 deriva and Itching/NEGATIVE chest xray Review of Systems ROS Statement: Those systems with pertinent positive or pertinent negative responses have been documented in the HPI. ROS Other: All systems not noted in ROS Statement are negative. Past Medical History Past Medical History: Hypertension Additional Past Medical History / Comment(s): ETOH,PER PT" LIVER ENZYMES ELEVATED", RT ELBOW FX(SX DONE), HAND TREMORS History of Any Multi-Drug Resistant Organisms: None Reported Past Surgical History: Orthopedic Surgery Additional Past Surgical History / Comment(s): rt elbow PLATE/SCREWS and rt shoulder torn ligament -repair done, wisdom teeth extracted. Past Anesthesia/Blood Transfusion Reactions: No Reported Reaction Past Psychological History: Depression Smoking Status: Current every day smoker Past Alcohol Use History: Abuse, Daily Past Drug Use History: Marijuana - Past Family History Mother Family Medical History: Congestive Heart Failure (CHF) Additional Family Medical History / Comment(s): AT AGE 62 FROM CHF. MOM'S PARENTS BOTH HAD CARDIAC PROBLEMS AND HAD CABG'S General Exam Limitations: no limitations General appearance: alert, in no apparent distress Head exam: Present: atraumatic, normocephalic, normal inspection Eye exam: Present: normal appearance, PERRL, EOMI. Absent: scleral icterus, conjunctival injection, periorbital swelling ENT exam: Present: normal exam, mucous membranes moist Neck exam: Present: normal inspection. Absent: tenderness, meningismus, lymp hadenopathy Respiratory exam: Present: normal lung sounds bilaterally. Absent: respiratory distress, wheezes, rales, rhonchi, stridor Cardiovascular Exam: Present: regular rate, normal rhythm, normal heart sounds. Absent: systolic murmur, diastolic murmur, rubs, gallop, clicks Extremities exam: Present: full ROM (Full range of motion of the right hand and wrist.), tenderness (Tenderness to the radial aspect of the right wrist and distal forearm.), normal capillary refill (cap refill less than 2 seconds, radial pulse 2+ in the right upper extremity.), other (Positive Ivan test.). Absent: pedal edema, joint swelling, calf tenderness Course Vital Signs 07/17/20 12:20 Temperature 97.3 F L Pulse Rate 83 Respiratory 16 Rate Blood Pressure 122/81 O2 Sat by Pulse 99 Oximetry Medical Decision Making - Medical Decision Making X-ray shows no acute fracture or dislocation. No significant change from prior. Patient likely has a de Quervain's tenosynovitis. I do not suspect occult fracture, there was no blunt trauma. He was wrapped with an Severiano wrap and directed to take Motrin and Tylenol for pain. He will ice the area. He will be referred to orthopedics. He'll return for any worsening symptoms. Disposition Clinical Impression: Wrist pain, right Disposition: HOME SELF-CARE Condition: Good Instructions (If sedation given, give patient instructions): Wrist Injury (ED) Additional Instructions: Please take Motrin and Tylenol for pain. Wear Severiano wrap as needed. Rest ice and elevate the wrist. Follow-up with orthopedics. Return to the emergency room for any worsening symptoms. Is patient prescribed a controlled substance at d/c from ED?: No Referrals: Concetta Doe MD [Primary Care Provider] - 1-2 days Time of Disposition: 14:24
[2020-07-17 14:47] VITALS: BP 120/78; PULSE 72; RESP 18; TEMP 97.2
== END 2020-07-17 14:45 | disposition home or self-care (01) ==
LOC: EC 11:55
DX: M25.531 Pain in right wrist (principal); I10 Essential (primary) hypertension; F32.9 Major depressive disorder, single episode, unspecified; F17.200 Nicotine dependence, unspecified, uncomplicated; F12.90 Cannabis use, unspecified, uncomplicated
CPT/HCPCS: 99283

== ENCOUNTER 2020-08-14 14:59 | Emergency (ER) | payer OTHER ==
[2020-08-14 15:06] VITALS: BP 151/99; PULSE 89; RESP 18; TEMP 97.8
[2020-08-14] MEDS ORDERED: LIDOCAINE 1% INJ 10MG/ML (20 ML MDV) SQ STA (15:28)
[2020-08-14] MEDS ORDERED: GELATIN SPONGE,ABSORB (LARGE) 1 EACH SPONGE TOPICAL STA (15:39)
--- NOTE | 2020-08-14 16:00 | ED ---
Wound/Laceration HPI - General Chief Complaint: Wound/Laceration Stated Complaint: Finger lac Time Seen by Provider: 08/14/20 15:28 Source: patient, RN notes reviewed Mode of arrival: ambulatory Limitations: no limitations - History of Present Illness Initial Comments: patient is a 44-year-old male that presents to the emergency department complaining of left middle finger laceration. He notes that he got this while cutting onions at work. Patient is up-to-date on his tetanus vaccination as he recently had a month ago. Patient was in no apparent distress or pain. She denied any other issues or complaints at this time. He did note that he did have full range of motion and sensation of his left middle finger. He denied any weakness numbness tingling chest pain shortness of breath headache nausea vomiting diarrhea constipation fever fatigue chills. - Related Data Home Medications Medication Instructions Recorded Confirmed Cholecalciferol (Vitamin D3) 2,000 unit PO DAILY 10/29/16 08/04/18 [Vitamin D3] Omeprazole 20 mg PO DAILY 09/03/17 08/04/18 Ibuprofen 800 mg PO DAILY 11/02/17 08/04/18 Loperamide [Imodium] 2 mg PO BID 11/02/17 08/04/18 Lisinopril [Prinivil] 10 mg PO DAILY 08/04/18 08/04/18 amLODIPine [Norvasc] 5 mg PO HS 08/04/18 08/04/18 lisinopriL [Prinivil] 20 mg PO DAILY 08/04/18 08/04/18 Previous Rx's Medication Instructions Recorded Cephalexin [Keflex] 500 mg PO Q6HR 7 Days #28 cap 08/04/18 Allergies Allergy/AdvReac Type Severity Reaction Status Date / Time tuberculin, purified protein Allergy Swelling/Redness Verified 08/14/20 15:02 deriva and Itching/NEGATIVE chest xray Review of Systems ROS Statement: Those systems with pertinent positive or pertinent negative responses have been documented in the HPI. ROS Other: All systems not noted in ROS Statement are negative. Past Medical History Past Medical History: Hypertension Additional Past Medical History / Comment(s): ETOH,PER PT" LIVER ENZYMES ELEVATED", RT ELBOW FX(SX DONE), HAND TREMORS History of Any Multi-Drug Resistant Organisms: None Reported Past Surgical History: Orthopedic Surgery Additional Past Surgical History / Comment(s): rt elbow PLATE/SCREWS and rt shoulder torn ligament -repair done, wisdom teeth extracted. Past Anesthesia/Blood Transfusion Reactions: No Reported Reaction Past Psychological History: Depression Smoking Status: Current every day smoker Past Alcohol Use History: Abuse, Daily Past Drug Use History: Marijuana - Past Family History Mother Family Medical History: Congestive Heart Failure (CHF) Additional Family Medical History / Comment(s): AT AGE 62 FROM CHF. MOM'S PARENTS BOTH HAD CARDIAC PROBLEMS AND HAD CABG'S General Exam Limitations: no limitations General appearance: alert, in no apparent distress Head exam: Present: atraumatic, normocephalic, normal inspection Eye exam: Present: normal appearance, PERRL, EOMI. Absent: scleral icterus, conjunctival injection, periorbital swelling Neck exam: Present: normal inspection Respiratory exam: Present: normal lung sounds bilaterally. Absent: respiratory distress, wheezes, rales, rhonchi, stridor Cardiovascular Exam: Present: regular rate, normal rhythm, normal heart sounds. Absent: systolic murmur, diastolic murmur, rubs, gallop, clicks Left Hand Wrist exam: Present: full ROM, tenderness (over the distal aspect of the left middle finger), abrasion (a shunt missing chunk of skin at the distal aspect of the left middle finger from knife injury at work. Minimal bleeding, nonsuturable) Neurological exam: Present: alert, oriented X3 Psychiatric exam: Present: normal affect, normal mood Skin exam: Present: warm, dry, intact, normal color. Absent: rash Course Vital Signs 08/14/20 15:02 Temperature 97.8 F Pulse Rate 89 Respiratory 18 Rate Blood Pressure 151/99 O2 Sat by Pulse 97 Oximetry Medical Decision Making - Medical Decision Making 44-year-old male complaining of left middle finger laceration/fungal skin missing from knife injury at work. Gelfoam and wound care ordered due to area not being able to be chewed. Case discussed with Dr. Amezquita, patient can discharge home with follow-up to primary care. Disposition Clinical Impression: Laceration Disposition: HOME SELF-CARE Condition: Stable Instructions (If sedation given, give patient instructions): Laceration (ED) Additional Instructions: Please return to the Emergency Department if symptoms worsen or any other concerns. Follow-up with primary care as needed. Keep area as clean and as dry as possible. Change bandages out 1-2 times per day. Take Tylenol and/or Motrin as needed for pain control. Wear gloves at work. Is patient prescribed a controlled substance at d/c from ED?: No Referrals: Concetta Doe MD [Primary Care Provider] - 1-2 days Time of Disposition: 16:00
== END 2020-08-14 16:05 | disposition home or self-care (01) ==
LOC: EC 14:59
DX: S61.213A Laceration without foreign body of left middle finger without damage to nail, initial encounter (principal); I10 Essential (primary) hypertension; F32.9 Major depressive disorder, single episode, unspecified; F17.200 Nicotine dependence, unspecified, uncomplicated; F12.90 Cannabis use, unspecified, uncomplicated; Z79.1 Long term (current) use of non-steroidal anti-inflammatories (NSAID); W26.0XXA Contact with knife, initial encounter; Y99.0 Civilian activity done for income or pay
CPT/HCPCS: 99282; J2001

== ENCOUNTER 2020-09-13 10:41 | Day surgery (SDC) | payer OTHER ==
[~2020-09-13 10:41] MED LIST changes: +DEXAMETHASONE SOD PHOSPHATE 4 MG/ML 1 ML VIAL IV ONE; +HYDROmorphone 0.5 MG/0.5 ML SYRINGE IVP PRN; +LACTATED RINGERS 1,000 ML IV SCH; +ONDANSETRON 4 MG/2 ML VIAL IVP ONE; -THIAMINE 100 MG TAB PO SCH
[2020-09-13] MEDS ORDERED: fentaNYL (PF) 50 MCG/ML 2 ML AMP IVP ONE ×2 (11:20→11:23)
[2020-09-13] MEDS ORDERED: MIDAZOLAM 2 MG/2 ML VIAL IVP ONE ×2 (11:20→11:23)
[2020-09-13] MEDS ORDERED: fentaNYL (PF) 50 MCG/ML 2 ML AMP ONE (12:02)
[2020-09-13] MEDS ORDERED: ROPIVACAINE 5 MG/ML 30 ML VIAL ONE (12:02)
[2020-09-13] MEDS ORDERED: PROPOFOL 10 MG/ML 20 ML VIAL IV ONE (12:02)
[2020-09-13] MEDS ORDERED: MIDAZOLAM 2 MG/2 ML VIAL ONE (12:02)
[2020-09-13] MEDS ORDERED: LIDOCAINE 1% INJ 10MG/ML (20 ML MDV) ONE (12:02)
[2020-09-13 13:05] VITALS: TEMP 97.4
--- NOTE | 2020-09-13 13:12 | OP ---
OPERATIVE REPORT DATE OF PROCEDURE: 09/13/2020. PREOPERATIVE DIAGNOSIS: Right symptomatic plate and screws olecranon. POSTOP DIAGNOSIS: Right symptomatic plate and screws olecranon. PROCEDURE PERFORMED: Removal plate and screws, right olecranon. SURGEON: Nikita Brown MD. SOFTWARE ENGINEER MOBILE: Lyle Alfaro PA-C. ANESTHESIA: General endotracheal. ESTIMATED BLOOD LOSS: 5 mL. TOURNIQUET: None. DRAINS: None. COMPLICATIONS: None apparent. DISPOSITION: Postanesthesia care unit. INDICATIONS: Isaiah is a very pleasant 44-year-old male who underwent open reduction, internal fixation of a right displaced olecranon fracture by myself many years ago. He works as a chef assistant. The plate and screws have been quite symptomatic for him. He would like to have the plate and screws removed. The fracture is healed completely and this seemed reasonable, so we proceeded. The risks of procedure were discussed with him in detail. These risks include but were not limited to risk of infection, nerve damage, bleeding, pain, and a very small risk of deep vein thrombosis which could lead to fatal pulmonary embolism. All of his questions with regard to the procedure were answered to his satisfaction. Appropriate informed consent was obtained. DESCRIPTION OF THE PROCEDURE: The patient was identified in preoperative holding area. Surgical site was marked by both the patient and myself. He was given 2 grams of Ancef IV for prophylactic purposes. He was then transported to the operative suite, placed supine on the operative table. General anesthetic was then administered, dosed per the anesthesia sheet. Anesthesia performed without apparent complication. A tourniquet was then placed high on the right upper brachium. Well-padded in preparation for surgery. The tourniquet was not inflated throughout the entire procedure. The patient's right upper extremity was then prepped and draped in usual sterile fashion. Standard surgical pause undertaken to ensure the operating on the correct site and that appropriate preoperative antibiotics were given. All staff in the room were in agreement we proceeded. The previous incision was then marked with a surgical pen. The incision was then reopened with a 15 blade scalpel. Dissection carried down sharply to the plate. The plate was cleared of any scar tissue. The screws were then removed with the appropriate screwdriver. The plate was then easily removed. The wound was then thoroughly irrigated with sterile saline solution with antibiotic added. The subcutaneous tissue closed with 2-0 Vicryl interrupted suture. The skin was closed with stainless steel elham. Sterile dressing was then applied. The patient's right upper extremity was then placed in a standard sling. All sponge and needle counts were deemed correct prior to closure. The patient tolerated the procedure without apparent complication. He was transferred to the recovery room in stable condition. ABDIEL / CLARE: [id number] /
[2020-09-13 13:46] VITALS: PULSE 72; RESP 16
[2020-09-13 14:07] VITALS: BP 126/84
--- NOTE | 2020-09-13 17:26 | P.ANPRN ---
Procedure Note - Anesthesia - Nerve Block Performed Right Supraclavicular Single Time Out Performed: Yes (1122) Date of Procedure: 09/13/20 Procedure Start Time: : Procedure Stop Time: Location of Patient: PreOp Indication: Acute Post-Operative Pain, Requested by Surgeon Specifically requested for management of pain by DrDoroteo: Nikita Brown Sedation Type: Sedate with meaningful contact maintained Preparation: Sterile Prep Position: Supine Catheter: None Needle Types: Pajunk Needle Gauge: 21 Ultrasound used to visualize needle placement: Yes Ultrasound used to observe medication spread: Yes Injectate: 0.5% Ropivacaine (see comment for volume) (30cc) Blood Aspirated: No Pain Paresthesia on Injection Noted: No Resistance on Injection: Normal Image Stored and Saved: Yes Events: Uneventful and Well Tolerated
== END 2020-09-13 14:20 | disposition home health service (06) ==
LOC: OR 10:41
PROVIDERS: ATTEND Orthopaedic Surgery Sports Medicine
DX: T84.84XA Pain due to internal orthopedic prosthetic devices, implants and grafts, initial encounter (principal); Z87.81 Personal history of (healed) traumatic fracture; Z98.890 Other specified postprocedural states; I10 Essential (primary) hypertension; F17.200 Nicotine dependence, unspecified, uncomplicated; F32.9 Major depressive disorder, single episode, unspecified; K21.9 Gastro-esophageal reflux disease without esophagitis; Z90.89 Acquired absence of other organs; Z82.49 Family history of ischemic heart disease and other diseases of the circulatory system; Z79.1 Long term (current) use of non-steroidal anti-inflammatories (NSAID); Z79.899 Other long term (current) drug therapy; Z91.09 Other allergy status, other than to drugs and biological substances
CPT/HCPCS: 20680; 64415; 76942; J2250; J1100; J0690; J2405; J2001; J3010; J2795; J2704

== ENCOUNTER 2021-01-14 09:19 | Inpatient (IN) | payer OTHER ==
[2021-01-14] MEDS ORDERED: LORazepam 2 MG/ML INJ IV STA (10:09)
[2021-01-14] MEDS ORDERED: NITROGLYCERIN OINT 1 INCH/GM PACKET TOPICAL STA (10:09)
[2021-01-14] MEDS ORDERED: ASPIRIN 81 MG PO STA (10:09)
--- NOTE | 2021-01-14 10:11 | ED ---
General Adult HPI - General Chief complaint: Chest Pain Stated complaint: chest pain, numbness in arm & feet Time Seen by Provider: 01/14/21 09:47 Source: patient, RN notes reviewed Mode of arrival: ambulatory Limitations: no limitations - History of Present Illness Initial comments: Patient is a pleasant 45-year-old male presenting to the emergency department with concerns for chest discomfort. Onset of symptoms was almost a week ago. Discomfort does worsen somewhat with exertion. Discomfort is currently rated 3/10. No radiation. Discomfort is all. Patient also has had some tingling in his arms and legs. No associated dyspnea, nausea or diaphoresis. No history of similar symptoms previously. - Related Data Home Medications Medication Instructions Recorded Confirmed Omeprazole 20 mg PO DAILY 09/03/17 01/14/21 Lisinopril [Prinivil] 10 mg PO QAM 08/04/18 01/14/21 Ibuprofen [Motrin Ib] 200 mg PO Q8H PRN 01/14/21 01/14/21 Allergies Allergy/AdvReac Type Severity Reaction Status Date / Time tuberculin, purified protein Allergy Swelling/Redness Verified 01/14/21 11:18 deriva and Itching/NEGATIVE chest xray Review of Systems ROS Statement: Those systems with pertinent positive or pertinent negative responses have been documented in the HPI. ROS Other: All systems not noted in ROS Statement are negative. Constitutional: Denies: fever Eyes: Denies: eye pain ENT: Denies: ear pain Respiratory: Denies: cough Cardiovascular: Reports: chest pain Endocrine: Reports: fatigue Gastrointestinal: Denies: abdominal pain Genitourinary: Denies: dysuria Musculoskeletal: Denies: back pain Skin: Denies: rash Neurological: Reports: paresthesias Past Medical History Past Medical History: GERD/Reflux, Hypertension, Liver Disease Additional Past Medical History / Comment(s): RIGHT ELBOW FX(SX DONE) HX: ETOH,PER PT" LIVER ENZYMES ELEVATED", , HAND TREMORS History of Any Multi-Drug Resistant Organisms: None Reported Past Surgical History: Appendectomy, Orthopedic Surgery Additional Past Surgical History / Comment(s): rt elbow PLATE/SCREWS and rt shoulder torn ligament -repair done, wisdom teeth extracted. Past Anesthesia/Blood Transfusion Reactions: No Reported Reaction Past Psychological History: Depression Smoking Status: Current every day smoker Past Alcohol Use History: Daily Past Drug Use History: None Reported - Past Family History Mother Family Medical History: Congestive Heart Failure (CHF) Additional Family Medical History / Comment(s): AT AGE 62 FROM CHF. MOM'S PARENTS BOTH HAD CARDIAC PROBLEMS AND HAD CABG'S Sister(s) Family Medical History: Deep Vein Thrombosis (DVT) General Exam Limitations: no limitations General appearance: alert, in no apparent distress Head exam: Present: normocephalic Eye exam: Present: normal appearance Neck exam: Present: normal inspection Respiratory exam: Present: normal lung sounds bilaterally. Absent: chest wall tenderness Cardiovascular Exam: Present: regular rate, normal rhythm Expanded Peripheral pulses: 2+: Radial (R), Radial (L), Posterior Tibialis (R), Posterior Tibialis (L) GI/Abdominal exam: Present: soft. Absent: tenderness Extremities exam: Present: normal inspection. Absent: pedal edema, calf tenderness Neurological exam: Present: alert Psychiatric exam: Present: normal affect, normal mood Skin exam: Present: normal color Course Vital Signs 01/14/21 09:30 Temperature 98.5 F Pulse Rate 125 H Respiratory 18 Rate Blood Pressure 112/84 O2 Sat by Pulse 95 Oximetry EKG Findings - EKG Comments: EKG Findings:: Normal sinus rhythm with a rate of 99. ND 134. QRS 84. QT 336. QTc 431. Normal axis. Normal QRS. No acute ST change. Medical Decision Making - Medical Decision Making Patient reevaluated and updated. Patient amiss to drinking alcohol regularly. Case discussed with Dr. ch, who will admit covering hospital call. - Lab Data Result diagrams: 01/14/21 10:27 01/14/21 10:27 Lab Results 01/14/21 01/14/21 01/14/21 Range/Units 10:27 10:27 10:27 WBC 10.2 (3.8-10.6) k/uL RBC 3.77 L (4.30-5.90) m/uL Hgb 13.8 (13.0-17.5) gm/dL Hct 40.1 (39.0-53.0) % MCV 106.4 H (80.0-100.0) fL MCH 36.5 H (25.0-35.0) pg MCHC 34.4 (31.0-37.0) g/dL RDW 13.9 (11.5-15.5) % Plt Count 134 L (150-450) k/uL MPV 9.2 Neutrophils % 69 % Lymphocytes % 20 % Monocytes % 5 % Eosinophils % 3 % Basophils % 1 % Neutrophils # 7.0 (1.3-7.7) k/uL Lymphocytes # 2.0 (1.0-4.8) k/uL Monocytes # 0.5 (0-1.0) k/uL Eosinophils # 0.3 (0-0.7) k/uL Basophils # 0.1 (0-0.2) k/uL Macrocytosis Moderate PT 12.1 H (9.0-12.0) sec INR 1.2 H (<1.2) APTT 24.7 (22.0-30.0) sec D-Dimer 0.52 (<0.60) mg/L FEU Sodium 141 (137-145) mmol/L Potassium 3.1 L (3.5-5.1) mmol/L Chloride 101 (98-107) mmol/L Carbon Dioxide 21 L (22-30) mmol/L Anion Gap 19 mmol/L BUN 11 (9-20) mg/dL Creatinine 0.78 (0.66-1.25) mg/dL Est GFR (CKD-EPI)AfAm >90 (>60 ml/min/1.73 sqM) Est GFR (CKD-EPI)NonAf >90 (>60 ml/min/1.73 sqM) Glucose 130 H (74-99) mg/dL Calcium 10.3 H (8.4-10.2) mg/dL Magnesium 1.1 L (1.6-2.3) mg/dL Total Bilirubin 1.8 H (0.2-1.3) mg/dL AST 119 H (17-59) U/L ALT 37 (4-49) U/L Alkaline Phosphatase 219 H (38-126) U/L Troponin I (0.000-0.034) ng/mL Total Protein 9.0 H (6.3-8.2) g/dL Albumin 4.2 (3.5-5.0) g/dL 01/14/21 Range/Units 10:27 WBC (3.8-10.6) k/uL RBC (4.30-5.90) m/uL Hgb (13.0-17.5) gm/dL Hct (39.0-53.0) % MCV (80.0-100.0) fL MCH (25.0-35.0) pg MCHC (31.0-37.0) g/dL RDW (11.5-15.5) % Plt Count (150-450) k/uL MPV Neutrophils % % Lymphocytes % % Monocytes % % Eosinophils % % Basophils % % Neutrophils # (1.3-7.7) k/uL Lymphocytes # (1.0-4.8) k/uL Monocytes # (0-1.0) k/uL Eosinophils # (0-0.7) k/uL Basophils # (0-0.2) k/uL Macrocytosis PT (9.0-12.0) sec INR (<1.2) APTT (22.0-30.0) sec D-Dimer (<0.60) mg/L FEU Sodium (137-145) mmol/L Potassium (3.5-5.1) mmol/L Chloride (98-107) mmol/L Carbon Dioxide (22-30) mmol/L Anion Gap mmol/L BUN (9-20) mg/dL Creatinine (0.66-1.25) mg/dL Est GFR (CKD-EPI)AfAm (>60 ml/min/1.73 sqM) Est GFR (CKD-EPI)NonAf (>60 ml/min/1.73 sqM) Glucose (74-99) mg/dL Calcium (8.4-10.2) mg/dL Magnesium (1.6-2.3) mg/dL Total Bilirubin (0.2-1.3) mg/dL AST (17-59) U/L ALT (4-49) U/L Alkaline Phosphatase (38-126) U/L Troponin I <0.012 (0.000-0.034) ng/mL Total Protein (6.3-8.2) g/dL Albumin (3.5-5.0) g/dL - Radiology Data Radiology results: image reviewed (Chest x-ray shows no acute process) Disposition Clinical Impression: Chest pain, Hypokalemia, Hypomagnesemia Disposition: ADMITTED IP TO THIS HOSP Is patient prescribed a controlled substance at d/c from ED?: No Referrals: Concetta Doe MD [Primary Care Provider] - 1-2 days Decision Time: 12:15
[2021-01-14 10:47] LABS: Basophils # (A) 0.1 k/uL (0-0.2); Basophils % (A) 1 %; Eosinophils # (A) 0.3 k/uL (0-0.7); Eosinophils % (A) 3 %; HCT 40.1 % (39.0-53.0); HGB 13.8 gm/dL (13.0-17.5); Lymphocytes % (A) 20 %; MCH 36.5 pg (25.0-35.0); MCHC 34.4 g/dL (31.0-37.0); MCV 106.4 fL (80.0-100.0); Macrocytosis Moderate; Mean Platelet Volume 9.2; Monocytes # (A) 0.5 k/uL (0-1.0); Monocytes % (A) 5 %; Neutrophils % (A) 69 %; Platelet Count 134 k/uL (150-450); RBC 3.77 m/uL (4.30-5.90); RDW 13.9 % (11.5-15.5); WBC 10.2 k/uL (3.8-10.6)
--- NOTE | 2021-01-14 10:53 | XR ---
EXAMINATION TYPE: XR chest 2V DATE OF EXAM: 01/14/2021 COMPARISON: September 24, 2019 HISTORY: Chest pain TECHNIQUE: Frontal and lateral views of the chest are obtained. FINDINGS: There is no focal air space opacity. No evidence for pneumothorax. No pleural effusion. The cardiac silhouette size is within normal limits. The osseous structures are grossly intact. IMPRESSION: 1. No acute cardiopulmonary process.
[2021-01-14 11:08] LABS: ALT 37 U/L (4-49); AST 119 U/L (17-59); African American GFR (CKD) >90 (>60 ml/min/1.73 sqM); Albumin 4.2 g/dL (3.5-5.0); Alkaline Phosphatase 219 U/L (38-126); Anion Gap 19 mmol/L; Blood Urea Nitrogen 11 mg/dL (9-20); Calcium 10.3 mg/dL (8.4-10.2); Carbon Dioxide 21 mmol/L (22-30); Chloride 101 mmol/L (98-107); Glucose 130 mg/dL (74-99); Magnesium 1.1 mg/dL (1.6-2.3); Non-African American GFR(CKD) >90 (>60 ml/min/1.73 sqM); Potassium 3.1 mmol/L (3.5-5.1); Sodium 141 mmol/L (137-145); Total Bilirubin 1.8 mg/dL (0.2-1.3)
[2021-01-14 11:17] LABS: INR 1.2 (<1.2); Partial Thromboplastin Time 24.7 sec (22.0-30.0); Prothrombin Time 12.1 sec (9.0-12.0)
[2021-01-14] MEDS ORDERED: POTASSIUM CHLORIDE ER 20 MEQ TAB.ER PO STA (11:24)
[2021-01-14] MEDS ORDERED: MAGNESIUM SULFATE-D5W PMX 1 GM in DEXTROSE/WATER 1 100ML.BAG IVPB ONE (12:00)
[2021-01-14] MEDS ORDERED: Potassium Replacement Protocol 1 EACH MISC MISCELLANE PRN (12:10)
[2021-01-14] MEDS ORDERED: Magnesium Replacement Protocol 1 EACH MISC MISCELLANE PRN (12:10)
--- NOTE | 2021-01-14 12:12 | P.HPIM ---
History of Present Illness This is a pleasant 45 years old male with past medical history of GERD/Reflux, Hypertension, alcoholic liver disease, depression Patient presents because of chest pain of 5 days' duration, patient says the pain is mild 1-2/10 in severity, in the middle of the chest, nonradiating, no associated dyspnea or coughing. No abdominal pain or nausea vomiting or diarrhea. No rash. No urinary symptoms. Tingling in his both fingers and toes for the last 5 days He denies depression or suicidal ideation or homicidal ideation He smokes half pack per day, he was counseled to quit and he agrees but he declines nicotine patch He drinks 1 pint of liquor every day, no illicit drugs Vital signs stable except for mild tachycardia with a heart rate of 124. CBC, INR are unremarkable. D-dimer is -0.5. Potassium of 3.1 Calcium 10.3, magnesium 1.1, AST slightly elevated at 119, bilirubin is elevated and 1.8. ALT is normal at 37. Chest x-ray: No acute process. EKG showing normal sinus rhythm at [address] T changes, QTC 431. Patient is a started on aspirin 325 mg, Review of Systems CONSTITUTIONAL: No fever, no malaise, no fatigue. HEENT: No recent visual problems or hearing problems. Denied any sore throat. CARDIOVASCULAR: No orthopnea, PND, no palpitations, no syncope. PULMONARY: No shortness of breath, no cough, no hemoptysis. GASTROINTESTINAL: No diarrhea, no nausea, no vomiting, no abdominal pain. Normoactive bowel sounds. NEUROLOGICAL: No headaches, no weakness, no numbness. HEMATOLOGICAL: Denies any bleeding or petechiae. GENITOURINARY: Denies any burning micturition, frequency, or urgency. MUSCULOSKELETAL/RHEUMATOLOGICAL: Denies any joint pain, swelling, or any muscle pain. ENDOCRINE: Denies any polyuria or polydipsia. Past Medical History Past Medical History: GERD/Reflux, Hypertension, Liver Disease Additional Past Medical History / Comment(s): RIGHT ELBOW FX(SX DONE) HX: ETOH,PER PT" LIVER ENZYMES ELEVATED", , HAND TREMORS History of Any Multi-Drug Resistant Organisms: None Reported Past Surgical History: Appendectomy, Orthopedic Surgery Additional Past Surgical History / Comment(s): rt elbow PLATE/SCREWS and rt shoulder torn ligament -repair done, wisdom teeth extracted. Past Anesthesia/Blood Transfusion Reactions: No Reported Reaction Past Psychological History: Depression Smoking Status: Current every day smoker Past Alcohol Use History: Daily Past Drug Use History: None Reported - Past Family History Mother Family Medical History: Congestive Heart Failure (CHF) Additional Family Medical History / Comment(s): AT AGE 62 FROM CHF. MOM'S PARENTS BOTH HAD CARDIAC PROBLEMS AND HAD CABG'S Sister(s) Family Medical History: Deep Vein Thrombosis (DVT) Medications and Allergies Home Medications Medication Instructions Recorded Confirmed Type Omeprazole 20 mg PO DAILY 09/03/17 01/14/21 History Lisinopril [Prinivil] 10 mg PO QAM 08/04/18 01/14/21 History Ibuprofen [Motrin Ib] 200 mg PO Q8H PRN 01/14/21 01/14/21 History Allergies Allergy/AdvReac Type Severity Reaction Status Date / Time tuberculin, purified protein Allergy Swelling/Redness Verified 01/14/21 11:18 deriva and Itching/NEGATIVE chest xray Physical Exam Vitals: Vital Signs Temp Pulse Resp BP Pulse Ox 01/14/21 09:30 98.5 F 125 H 18 112/84 95 Intake and Output 01/13/21 01/14/21 01/14/21 22:59 06:59 14:59 Other: Weight 90.718 kg GENERAL: The patient is alert and oriented x3, not in any acute distress. Well developed, well nourished. HEENT: Pupils are round and equally reacting to light. EOMI. No scleral icterus. No conjunctival pallor. Normocephalic, atraumatic. No pharyngeal erythema. No thyromegaly. CARDIOVASCULAR: S1 and S2 present. No murmurs, rubs, or gallops. PULMONARY: Chest is clear to auscultation, no wheezing or crackles. ABDOMEN: Soft, nontender, nondistended, normoactive bowel sounds. No palpable organomegaly. MUSCULOSKELETAL: No joint swelling or deformity. EXTREMITIES: No cyanosis, clubbing, or pedal edema. NEUROLOGICAL: Gross neurological examination did not reveal any focal deficits. SKIN: No rashes. No petechiae Results CBC & Chem 7: 01/14/21 10:27 01/14/21 10:27 Labs: Abnormal Lab Results - Last 24 Hours (Table) 1101/14/21 01/14/21 Range/Units 10:27 10:27 10:27 RBC 3.77 L (4.30-5.90) m/uL MCV 106.4 H (80.0-100.0) fL MCH 36.5 H (25.0-35.0) pg Plt Count 134 L (150-450) k/uL PT 12.1 H (9.0-12.0) sec INR 1.2 H (<1.2) Potassium 3.1 L (3.5-5.1) mmol/L Carbon Dioxide 21 L (22-30) mmol/L Glucose 130 H (74-99) mg/dL Calcium 10.3 H (8.4-10.2) mg/dL Magnesium 1.1 L (1.6-2.3) mg/dL Total Bilirubin 1.8 H (0.2-1.3) mg/dL AST 119 H (17-59) U/L Alkaline Phosphatase 219 H (38-126) U/L Total Protein 9.0 H (6.3-8.2) g/dL Assessment and Plan Assessment: Chest pain, rule out cardiac causes. D-dimer negative at 0.05 alcohol abuse, RISK of local withdrawal Nicotine dependence Tingling of fingers and toes most likely secondary to electrolyte abnormality. Replace potassium and magnesium Hypertension History of GERD History of alcoholic liver disease History of depression, not an active issue Hydration, encourage oral hydration Plan: this is a pleasant 45 years old male who presents with chest pain. We'll do serial troponins, continue with aspirin Cardiology consult Start patient on CIWA protocol and thiamine Nicotine patches offered but patient declined. Replace electrolytes, potassium and magnesium per protocol Labs and medication were reviewed.. Continue same treatment. Continue with symptomatic treatment. Resume home medication. Monitor lytes and vitals. DVT and GI prophylaxis. Further recommendations depends on the clinical course of the patient DVT prophylaxis: Subcutaneous heparin GI Prophylaxis: Pepcid
[2021-01-14] MEDS ORDERED: THIAMINE 100 MG in SODIUM CHLORIDE 0.9% 50 ML IVPB SCH (12:15)
[2021-01-14] MEDS ORDERED: NITROGLYCERIN SL TABS 0.4 MG TAB SUBLINGUAL PRN (12:17)
[2021-01-14] MEDS ORDERED: LORazepam 2 MG/ML INJ IV PRN ×3 (12:19)
[2021-01-14] MEDS: MAGNESIUM OXIDE 400 MG TAB PO SCH ×2 (14:39→19:50)
[2021-01-14] MEDS: FAMOTIDINE 20 MG/2 ML VIAL IV SCH ×2 (14:39→19:49)
[2021-01-14] MEDS: THIAMINE 100 MG/ML 2 ML VIAL IVP SCH (14:40)
[2021-01-14] MEDS: NITROGLYCERIN OINT 1 INCH/GM PACKET TOPICAL SCH (19:49)
[2021-01-14] MEDS: HEPARIN SODIUM,PORCINE/PF 5,000 UNIT/0.5 ML SYRINGE SQ SCH (19:50)
[2021-01-14] MEDS: POTASSIUM CHLORIDE ER 20 MEQ TAB.ER PO SCH (19:51)
[2021-01-14] MEDS: NICOTINE 21MG/24HR PATCH TRANSDERM SCH (21:38)
[2021-01-15 05:27] LABS: African American GFR (CKD) >90 (>60 ml/min/1.73 sqM); Anion Gap 8 mmol/L; Blood Urea Nitrogen 11 mg/dL (9-20); Calcium 9.7 mg/dL (8.4-10.2); Carbon Dioxide 25 mmol/L (22-30); Chloride 103 mmol/L (98-107); Glucose 96 mg/dL (74-99); Magnesium 1.3 mg/dL (1.6-2.3); Non-African American GFR(CKD) >90 (>60 ml/min/1.73 sqM); Potassium 3.9 mmol/L (3.5-5.1); Sodium 136 mmol/L (137-145)
[2021-01-15] MEDS: NITROGLYCERIN OINT 1 INCH/GM PACKET TOPICAL SCH ×4 (06:52→18:16)
[2021-01-15] MEDS ORDERED: MULTIVITAMINS, THERA 1 EACH TAB PO SCH (09:00)
[2021-01-15] MEDS ORDERED: ASPIRIN 325 MG TAB PO SCH (09:00)
[2021-01-15] MEDS ORDERED: lisinopriL 10 MG TAB PO SCH (09:00)
[2021-01-15] MEDS: MAGNESIUM OXIDE 400 MG TAB PO SCH ×2 (09:17→20:10)
[2021-01-15] MEDS: FAMOTIDINE 20 MG/2 ML VIAL IV SCH ×2 (09:17→20:10)
[2021-01-15] MEDS: NICOTINE 21MG/24HR PATCH TRANSDERM SCH (09:17)
[2021-01-15] MEDS: POTASSIUM CHLORIDE ER 20 MEQ TAB.ER PO SCH ×2 (09:17→20:08)
[2021-01-15] MEDS ORDERED: Magnesium Replacement Protocol 1 EACH MISC MISCELLANE PRN (09:28)
[2021-01-15 09:30] LABS: Chol/HDL Ratio 6.25 Ratio; LDL Cholesterol,Calculated 198.5 mg/dL (0.0-131.0)
--- NOTE | 2021-01-15 10:00 | ECHOF ---
Referral Reason:Chest pain MEASUREMENTS -------- HEIGHT: 180.3 cm WEIGHT: 90.7 kg BP: IVSd: 1.1 cm (0.6 - 1.1) LVIDd: 3.7 cm (3.9 - 5.3) LVPWd: 1.2 cm (0.6 - 1.1) IVSs: 1.7 cm LVIDs: 2.8 cm LVPWs: 1.7 cm Ao Diam: 4.5 cm (2.0 - 3.7) AV Cusp: 2.5 cm (1.5 - 2.6) LA Diam: 3.3 cm (2.7 - 3.8) MV EXCURSION: 22.213 mm (> 18.000) MV EF SLOPE: 215 mm/s (70 - 150) EPSS: 2.1 cm MV E Ujan: 0.80 m/s MV DecT: 311 ms MV A Juan: 0.52 m/s MV E/A Ratio: 1.55 RAP: 5.00 mmHg RVSP: 14.41 mmHg FINDINGS -------- This was a technically adequate study. The left ventricular size is normal. Left ventricular wall thickness is normal. Overall left vent ricular systolic function is normal with, an EF between 55 - 60 %. The right ventricle is normal in size. The left atrial size is normal. The right atrial size is normal. The aortic valve was not well visualized. The mitral valve is normal. There is trace mitral regurgitation. The tricuspid valve appears structurally normal. Trace tricuspid regurgitation present. Right viviana tricular systolic pressure is normal at < 35 mmHg. The pulmonic valve was not well visualized. The aortic root size is normal. IVC Not well visulized. There is no pericardial effusion. CONCLUSIONS -------- 1. The left ventricular size is normal. 2. Left ventricular wall thickness is normal. 3. Overall left ventricular systolic function is normal with, an EF between 55 - 60 %. 4. There is trace mitral regurgitation. 5. Trace tricuspid regurgitation present. 6. There is no pericardial effusion. RESOURCE PROTECTION SPECIALIST: Arlene Yao RD
[2021-01-15] MEDS: HEPARIN SODIUM,PORCINE/PF 5,000 UNIT/0.5 ML SYRINGE SQ SCH ×2 (10:08→20:10)
[2021-01-15] MEDS: MAGNESIUM SULFATE-D5W PMX 1 GM in DEXTROSE/WATER 1 100ML.BAG IVPB SCH ×3 (10:08→12:41)
[2021-01-15] MEDS: THIAMINE 100 MG/ML 2 ML VIAL IVP SCH (11:32)
--- NOTE | 2021-01-15 14:26 | CONS ---
CONSULTATION CHIEF COMPLAINT: Chest pain. HISTORY OF PRESENT ILLNESS: Isaiah is a 45-year-old gentleman with history of GERD and hypertension who presented to the hospital complaining of chest pain. He describes it as mild intensity chest discomfort that was precordial, nonradiating without associated diaphoresis or shortness of breath. This has been going on for the last 5 days. Comes into hospital. EKG does not reveal ischemic changes and 3 sets of cardiac enzymes have been negative so far. He has strong family history of coronary artery disease and has history of smoking. I advised the patient to undergo a stress echo and echocardiogram for further evaluation of his symptoms. If necessary, I will perform cardiac catheterization on him. PAST MEDICAL HISTORY: Significant for GERD and hypertension. MEDICATIONS: Medications at home include Prinivil 10 daily, omeprazole 20 daily, ibuprofen. ALLERGIC: To PPD. FAMILY HISTORY: Significant for premature coronary artery disease. SOCIAL HISTORY: Significant for smoking. Denies drug abuse. REVIEW OF SYSTEMS: HEENT is unremarkable. CARDIAC as described above. RESPIRATORY negative. GI negative. : Negative: ALLERGY/IMMUNOLOGY: Negative. SKIN negative. MUSCULOSKELETAL: Significant for arthritis. PSYCHOSOCIAL: Negative. ENDOCRINE negative. DERM: Negative. CONSTITUTIONAL: Negative. ONCOLOGICAL: Negative. WORKERS COMPENSATION CONSULTANT: Negative. Rest of the system review is not relevant. EXAM: Afebrile. Heart rate is 70 beats per minute, blood pressure is 160/99, respiratory rate is 18, O2 saturation is 97% on room air. NECK: There is no jugular venous distention. Carotid upstroke is normal. There is no bruit. CHEST exam reveals good air entry bilaterally. HEART exam reveals first and second heart sounds. No gallop. No murmur. No rub. ABDOMEN is soft, nontender. Examination of EXTREMITIES did not reveal any edema. Peripheral pulses are felt. WORKERS COMPENSATION CONSULTANT exam did not reveal focal neurological deficits. His coronavirus test is negative. Three sets of tropes are negative. Potassium is 3.9, creatinine is 0.7, hemoglobin is 13.8. ASSESSMENT: Precordial chest pain. PLAN: Patient will undergo an echocardiogram and stress echo for further evaluation. If those are negative, he can be discharged home. Thank you for letting us to participate in the care of this pleasant gentleman. MMODL / IJN: [id number] /
--- NOTE | 2021-01-15 16:47 | ECHOS ---
STRESS ECHOCARDIOGRAM INDICATIONS: Chest pain BASELINE HEART RATE: 88 BASELINE BLOOD PRESSURE: 150/65 MAXIMUM HEART RATE: 165 MAXIMUM BLOOD PRESSURE: 218/77 85% MPHR: 149 100% MPHR: 175 METS: 6.8 MAXIMUM STAGE REACHED: 2 TOTAL EXERCISE TIME: 5:00 RESULTS: Baseline EKG revealed normal sinus rhythm with some baseline artifact and minor nonspecific ST abnormality. Patient walked on standard Gabriel protocol for 5 minutes, achieved a maximal heart rate of 159 beats per minute which is more than 85% of predicted maximal. There was significant artifact on the EKG making this uninterpretable. In the 30 minutes into recovery, heart rate was 160. EKG did not reveal any ischemic changes. The patient was asymptomatic. By EKG criteria, this is a negative stress test with limited exercise capacity. EKG quality was suboptimal. Baseline echo images revealed normal wall motion and wall thickening of all segments. At peak exercise, there was good augmentation of left ventricular wall motion and wall thickening of all segments suggesting that there is no evidence of any stress-induced ischemia on this study. FINAL IMPRESSION: 1. By EKG criteria, this is a negative stress test with limited exercise capacity. Patient did not have any angina. 2. Normal stress echocardiogram without evidence of ischemia. MMODL / IJN: [id number] /
[2021-01-15] MEDS ORDERED: MAGNESIUM OXIDE 400 MG TAB PO STA (19:51)
[2021-01-15 20:14] VITALS: BP 155/98; PULSE 93; RESP 18; TEMP 98.3
== END 2021-01-15 20:32 | disposition home or self-care (01) | DRG 313 ==
LOC: EC 09:19 → 3SCARD 12:17
PROVIDERS: ADMIT Internal Medicine; ATTEND Internal Medicine
PROC: HZ2ZZZZ Detoxification Services for Substance Abuse Treatment (ICD-10-PCS; principal; 2021-01-14)
DX: R07.2 Precordial pain (principal); K70.9 Alcoholic liver disease, unspecified; F10.10 Alcohol abuse, uncomplicated; E83.42 Hypomagnesemia; Z20.822 Contact with and (suspected) exposure to COVID-19; E87.6 Hypokalemia; F17.210 Nicotine dependence, cigarettes, uncomplicated; F32.A Depression, unspecified; I10 Essential (primary) hypertension; K21.9 Gastro-esophageal reflux disease without esophagitis; I08.1 Rheumatic disorders of both mitral and tricuspid valves; Z88.7 Allergy status to serum and vaccine; Z88.8 Allergy status to other drugs, medicaments and biological substances
CPT/HCPCS: 36415; 71046; 80048; 80053; 80061; 83735; 84484; 85025; 85379; 85610; 85730; 87635; 93005; 93306; 93351; 96374; 99285

== ENCOUNTER 2021-02-07 14:35 | Emergency (ER) | payer OTHER ==
[2021-02-07 14:47] VITALS: TEMP 98.2
[2021-02-07] MEDS ORDERED: PANTOPRAZOLE 40 MG/10 ML VIAL IVP STA ×2 (16:18→17:53)
[2021-02-07] MEDS ORDERED: SODIUM CHLORIDE 0.9% 1,000 ML IV STA ×2 (16:18→17:53)
[2021-02-07 16:30] LABS: Basophils # (A) 0.1 k/uL (0-0.2); Basophils % (A) 1 %; Eosinophils # (A) 0.1 k/uL (0-0.7); Eosinophils % (A) 1 %; HCT 41.5 % (39.0-53.0); HGB 13.5 gm/dL (13.0-17.5); Lymphocytes # (A) 1.3 k/uL (1.0-4.8); Lymphocytes % (A) 14 %; MCH 35.9 pg (25.0-35.0); MCHC 32.5 g/dL (31.0-37.0); Macrocytosis Marked; Mean Platelet Volume 9.5; Monocytes # (A) 0.6 k/uL (0-1.0); Monocytes % (A) 6 %; Neutrophils # (A) 7.2 k/uL (1.3-7.7); Neutrophils % (A) 76 %; Platelet Count 145 k/uL (150-450); RBC 3.76 m/uL (4.30-5.90); WBC 9.4 k/uL (3.8-10.6)
[2021-02-07 16:35] LABS: MCV 110.4 fL (80.0-100.0)
--- NOTE | 2021-02-07 16:37 | ED ---
General Adult HPI - General Source: patient, RN notes reviewed Mode of arrival: ambulatory Limitations: physical limitation <Arely Paige - Last Filed: 02/07/21 23:49> <Sahara Hamilton - Last Filed: 02/10/21 00:09> - General Chief complaint: GI Bleed Stated complaint: Vomiting blood Time Seen by Provider: 02/07/21 15:52 - History of Present Illness Initial comments: 45-year-old male presents to the emergency department for evaluation. Patient states he has had several episodes of dark bloody emesis today and 2 episodes of diarrhea very dark in color. States symptoms are accompanied by mild dizziness and headache. Patient denies abdominal pain or cramping. States he takes a baby aspirin and a blood pressure medication daily. Does report drinking approximately a half a pint of vodka daily. Denies fever, chills, chest pain, shortness of breath, abdominal pain, back pain, constipation, hematuria, or dysuria. (Arely Paige) - Related Data Home Medications Medication Instructions Recorded Confirmed Omeprazole 20 mg PO DAILY 09/03/17 02/07/21 Lisinopril [Prinivil] 10 mg PO DAILY 08/04/18 02/07/21 Aspirin EC [Ecotrin Low Dose] 81 mg PO DAILY 02/07/21 02/07/21 Magnesium 250 mg PO DAILY 02/07/21 02/07/21 Potassium Chloride ER [K-Dur 10] 10 meq PO BID-W/MEALS 02/07/21 02/07/21 Allergies Allergy/AdvReac Type Severity Reaction Status Date / Time tuberculin, purified protein Allergy Swelling/Redness Verified 02/07/21 16:23 deriva and Itching/NEGATIVE chest xray Review of Systems ROS Other: All systems not noted in ROS Statement are negative. <Arely Paige - Last Filed: 02/07/21 23:49> ROS Other: All systems not noted in ROS Statement are negative. <Sahara Hamilton - Last Filed: 02/10/21 00:09> ROS Statement: Those systems with pertinent positive or pertinent negative responses have been documented in the HPI. Past Medical History Past Medical History: GERD/Reflux, Hypertension, Liver Disease Additional Past Medical History / Comment(s): ETOH abuse, elevated LFTs, covid 11/2020, occasional mid back pain. History of Any Multi-Drug Resistant Organisms: None Reported Past Surgical History: Appendectomy, Orthopedic Surgery Additional Past Surgical History / Comment(s): R elbow fracture with plate/screws since removed, R shoulder torn ligament repair, wisdom teeth extractions. Past Anesthesia/Blood Transfusion Reactions: Postoperative Nausea & Vomiting (PONV) Additional Past Anesthesia/Blood Transfusion Reaction / Comment(s): Pt states once he had PONV and difficulty urinating post surgery. Past Psychological History: Depression Smoking Status: Current every day smoker Past Alcohol Use History: Daily Past Drug Use History: None Reported - Past Family History Mother Family Medical History: Congestive Heart Failure (CHF) Additional Family Medical History / Comment(s): AT AGE 62 FROM CHF. MOM'S PARENTS BOTH HAD CARDIAC PROBLEMS AND HAD CABG'S Sister(s) Family Medical History: Deep Vein Thrombosis (DVT) Additional Family Medical History / Comment(s): Chron's disease Father Family Medical History: COPD Additional Family Medical History / Comment(s): Alcoholism <Arely Paige - Last Filed: 02/07/21 23:49> General Exam Limitations: physical limitation General appearance: alert, in no apparent distress, other (Well-developed, well- nourished male in no acute distress. Initial temperature 98.2, pulse 124, respirations 18, blood pressure 152/94, pulse ox 97% on room air.) ENT exam: Present: normal exam, normal oropharynx, mucous membranes moist Neck exam: Present: normal inspection. Absent: tenderness, meningismus, lymphadenopathy Respiratory exam: Present: normal lung sounds bilaterally. Absent: respiratory distress, wheezes, rales, rhonchi, stridor Cardiovascular Exam: Present: regular rate, normal rhythm, tachycardia, normal heart sounds GI/Abdominal exam: Present: soft, distended (Mildly distended abdomen nontender upon palpation), normal bowel sounds, other (clear, yellow-tinged emesis with many dark flecks). Absent: tenderness, guarding, rebound, rigid Rectal exam: Present: normal inspection, normal rectal tone, heme (+) stool Extremities exam: Present: normal inspection, full ROM, normal capillary refill. Absent: tenderness, pedal edema, joint swelling, calf tenderness Back exam: Present: normal inspection Neurological exam: Present: alert, oriented X3, CN II-XII intact Psychiatric exam: Present: anxious Skin exam: Present: warm, dry, intact, normal color <GreciaArely - Last Filed: 02/07/21 23:49> Course <Arely Paige - Last Filed: 02/07/21 23:49> Vital Signs 02/07/21 02/07/21 02/07/21 14:42 18:27 19:58 Temperature 98.2 F Pulse Rate 124 H 130 H 105 H Respiratory 18 18 18 Rate Blood Pressure 152/94 158/108 145/99 O2 Sat by Pulse 97 97 Oximetry 02/07/21 02/07/21 02/07/21 22:00 23:00 23:42 Temperature Pulse Rate 115 H 120 H 112 H Respiratory 18 18 20 Rate Blood Pressure 161/110 156/104 141/121 O2 Sat by Pulse 95 98 Oximetry - Reevaluation(s) Reevaluation #1: 02/07/21 21:52 [facility] declines to accept transfer at 2151 due to capacity and blood shortage per Dr. Armijo. 02/07/21 22:39 [facility] systems is unable to accept transfer at this time. 02/07/21 22:[address] Melchor at [facility] who is willing to accept this transfer. Patient updated. (GreciaArely) Medical Decision Making - Lab Data Result diagrams: 02/07/21 16:21 02/07/21 16:21 - EKG Data EKG shows normal: sinus rhythm Rate: normal - Radiology Data Radiology results: report reviewed, image reviewed <GreciaArely - Last Filed: 02/07/21 23:49> - Lab Data Result diagrams: 02/07/21 16:21 02/07/21 16:21 <Sahara Hamilton - Last Filed: 02/10/21 00:09> - Medical Decision Making 45-year-old male history of hypertension, liver disease, and alcoholism presents to the emergency department for evaluation of hematemesis and hematochezia, onset today. Upon exam, patient is well-appearing and in no acute distress. Patient is afebrile, hypertensive, and tachycardic. He had one episode of vomiting upon arrival in which clear yellow-tinged emesis contained large flecks of blood. Abdomen is soft, mildly distended, and nontender. Stool in rectum is brown, though Hemoccult positive. Laboratory studies were reviewed showing a stable hemoglobin of 13.5 and elevated liver enzymes and bilirubin. Consumes half pint of vodka daily therefore CIWA protocol was initiated; last drink yesterday at 1700. In addition, patient was given 80 mg of Protonix IV, IV fluids, Zofran, Ativan, and Thiamine. This patient's care was discussed with my attending Dr. Hamilton. Patient will need to be transferred for further GI ev aluation and treatment. [facility], Dr. Melchor, was willing to accept this patient. Patient is agreeable to this plan of care. (Arely Paige) I was available for consultation in the emergency department. The history and physical exam were done by the midlevel provider. I was consulted for this patients care. I reviewed the case with the midlevel provider and based on their presentation of the patient, I agree with the assessment, medical decision making and plan of care as documented. Chart was dictated using [employer] dictation software. Attempts were made to correct any dictation errors however some typographical errors may persist. Patient was seen during a national state of emergency due to the Covid-19 pandemic. (Sahara Hamilton) - Lab Data Lab Results 02/07/21 02/07/21 02/07/21 Range/Units 16:19 16:21 16:21 WBC 9.4 (3.8-10.6) k/uL RBC 3.76 L (4.30-5.90) m/uL Hgb 13.5 (13.0-17.5) gm/dL Hct 41.5 (39.0-53.0) % MCV 110.4 H (80.0-100.0) fL MCH 35.9 H (25.0-35.0) pg MCHC 32.5 (31.0-37.0) g/dL RDW 14.0 (11.5-15.5) % Plt Count 145 L (150-450) k/uL MPV 9.5 Neutrophils % 76 % Lymphocytes % 14 % Monocytes % 6 % Eosinophils % 1 % Basophils % 1 % Neutrophils # 7.2 (1.3-7.7) k/uL Lymphocytes # 1.3 (1.0-4.8) k/uL Monocytes # 0.6 (0-1.0) k/uL Eosinophils # 0.1 (0-0.7) k/uL Basophils # 0.1 (0-0.2) k/uL Macrocytosis Marked A PT 12.9 H (9.0-12.0) sec INR 1.2 H (<1.2) APTT 22.9 (22.0-30.0) sec Sodium (137-145) mmol/L Potassium (3.5-5.1) mmol/L Chloride (98-107) mmol/L Carbon Dioxide (22-30) mmol/L Anion Gap mmol/L BUN (9-20) mg/dL Creatinine (0.66-1.25) mg/dL Est GFR (CKD-EPI)AfAm (>60 ml/min/1.73 sqM) Est GFR (CKD-EPI)NonAf (>60 ml/min/1.73 sqM) Glucose (74-99) mg/dL Calcium (8.4-10.2) mg/dL Total Bilirubin (0.2-1.3) mg/dL AST (17-59) U/L ALT (4-49) U/L Alkaline Phosphatase (38-126) U/L Troponin I (0.000-0.034) ng/mL Total Protein (6.3-8.2) g/dL Albumin (3.5-5.0) g/dL Stool Occult Blood (Negative) Coronavirus (PCR) (Not Detectd) Blood Type O Positive Blood Type Recheck O Pos Bld Type Recheck Status No Antibody Screen NEGATIVE Spec Expiration Date 02/10/2021 - 231802/07/21 02/07/21 02/07/21 Range/Units 16:21 16:21 18:27 WBC (3.8-10.6) k/uL RBC (4.30-5.90) m/uL Hgb (13.0-17.5) gm/dL Hct (39.0-53.0) % MCV (80.0-100.0) fL MCH (25.0-35.0) pg MCHC (31.0-37.0) g/dL RDW (11.5-15.5) % Plt Count (150-450) k/uL MPV Neutrophils % % Lymphocytes % % Monocytes % % Eosinophils % % Basophils % % Neutrophils # (1.3-7.7) k/uL Lymphocytes # (1.0-4.8) k/uL Monocytes # (0-1.0) k/uL Eosinophils # (0-0.7) k/uL Basophils # (0-0.2) k/uL Macrocytosis PT (9.0-12.0) sec INR (<1.2) APTT (22.0-30.0) sec Sodium 143 (137-145) mmol/L Potassium 4.0 (3.5-5.1) mmol/L Chloride 102 (98-107) mmol/L Carbon Dioxide 22 (22-30) mmol/L Anion Gap 19 mmol/L BUN 16 (9-20) mg/dL Creatinine 0.69 (0.66-1.25) mg/dL Est GFR (CKD-EPI)AfAm >90 (>60 ml/min/1.73 sqM) Est GFR (CKD-EPI)NonAf >90 (>60 ml/min/1.73 sqM) Glucose 154 H (74-99) mg/dL Calcium 9.7 (8.4-10.2) mg/dL Total Bilirubin 1.9 H (0.2-1.3) mg/dL AST 125 H (17-59) U/L ALT 38 (4-49) U/L Alkaline Phosphatase 208 H (38-126) U/L Troponin I <0.012 (0.000-0.034) ng/mL Total Protein 9.3 H (6.3-8.2) g/dL Albumin 4.5 (3.5-5.0) g/dL Stool Occult Blood Positive (Negative) Coronavirus (PCR) (Not Detectd) Blood Type Blood Type Recheck Bld Type Recheck Status Antibody Screen Spec Expiration Date 02/07/21 Range/Units 19:56 WBC (3.8-10.6) k/uL RBC (4.30-5.90) m/uL Hgb (13.0-17.5) gm/dL Hct (39.0-53.0) % MCV (80.0-100.0) fL MCH (25.0-35.0) pg MCHC (31.0-37.0) g/dL RDW (11.5-15.5) % Plt Count (150-450) k/uL MPV Neutrophils % % Lymphocytes % % Monocytes % % Eosinophils % % Basophils % % Neutrophils # (1.3-7.7) k/uL Lymphocytes # (1.0-4.8) k/uL Monocytes # (0-1.0) k/uL Eosinophils # (0-0.7) k/uL Basophils # (0-0.2) k/uL Macrocytosis PT (9.0-12.0) sec INR (<1.2) APTT (22.0-30.0) sec Sodium (137-145) mmol/L Potassium (3.5-5.1) mmol/L Chloride (98-107) mmol/L Carbon Dioxide (22-30) mmol/L Anion Gap mmol/L BUN (9-20) mg/dL Creatinine (0.66-1.25) mg/dL Est GFR (CKD-EPI)AfAm (>60 ml/min/1.73 sqM) Est GFR (CKD-EPI)NonAf (>60 ml/min/1.73 sqM) Glucose (74-99) mg/dL Calcium (8.4-10.2) mg/dL Total Bilirubin (0.2-1.3) mg/dL AST (17-59) U/L ALT (4-49) U/L Alkaline Phosphatase (38-126) U/L Troponin I (0.000-0.034) ng/mL Total Protein (6.3-8.2) g/dL Albumin (3.5-5.0) g/dL Stool Occult Blood (Negative) Coronavirus (PCR) Not Detected (Not Detectd) Blood Type Blood Type Recheck Bld Type Recheck Status Antibody Screen Spec Expiration Date - EKG Data EKG Comments: EKG was obtained at 1449 and shows sinus tachycardia. Ventricular rate 106, WI interval 126, QRS duration 74, QT/QTC 334/443. Interpretation is otherwise normal ECG. (Arely Paige) - Radiology Data 2 view chest x-ray was obtained. Report was reviewed in its entirety. Impression per Dr. Doran is old granulomatous disease. No active cardiopulmonary process. No change. (Arely Paige) Disposition Time of Disposition: 23:15 - Out of Hospital Transfer - Req. Specs Out of Hospital Transfer - Requested Specifics: Other Emergency Center (GI specialty) <Arely Paige - Last Filed: 02/07/21 23:49> <Sahara Hamilton - Last Filed: 02/10/21 00:09> Clinical Impression: GI bleed, Elevated liver enzymes Disposition: OTHER INSTITUTION NOT DEFINED Condition: Serious Referrals: Concetta Doe MD [Primary Care Provider] - 1-2 days
[2021-02-07 16:39] LABS: ALT 38 U/L (4-49); AST 125 U/L (17-59); African American GFR (CKD) >90 (>60 ml/min/1.73 sqM); Albumin 4.5 g/dL (3.5-5.0); Alkaline Phosphatase 208 U/L (38-126); Anion Gap 19 mmol/L; Blood Urea Nitrogen 16 mg/dL (9-20); Calcium 9.7 mg/dL (8.4-10.2); Carbon Dioxide 22 mmol/L (22-30); Chloride 102 mmol/L (98-107); Glucose 154 mg/dL (74-99); Non-African American GFR(CKD) >90 (>60 ml/min/1.73 sqM); Sodium 143 mmol/L (137-145); Total Bilirubin 1.9 mg/dL (0.2-1.3); Total Protein 9.3 g/dL (6.3-8.2)
[2021-02-07 16:40] LABS: INR 1.2 (<1.2); Partial Thromboplastin Time 22.9 sec (22.0-30.0); Prothrombin Time 12.9 sec (9.0-12.0)
--- NOTE | 2021-02-07 16:44 | XR ---
EXAMINATION TYPE: XR chest 2V DATE OF EXAM: 02/07/2021 COMPARISON: 01/14/2021 HISTORY: Chest pain TECHNIQUE: 3 views FINDINGS: Heart and mediastinum appear normal. There is calcified granuloma at the azygos lymph node. There is no pleural effusion. There are no hilar masses. Bony thorax is intact. IMPRESSION: Old granulomatous disease. No active cardiopulmonary disease. No change.
[2021-02-07] MEDS ORDERED: ONDANSETRON 4 MG/2 ML VIAL IVP STA ×2 (17:53→22:11)
[2021-02-07] MEDS ORDERED: LORazepam 2 MG/ML INJ IV PRN ×2 (18:31)
[2021-02-07] MEDS ORDERED: THIAMINE 100 MG/ML 2 ML VIAL IM STA (18:31)
[2021-02-07] MEDS: LORazepam 2 MG/ML INJ IV PRN ×2 (18:52→23:39)
[2021-02-07 23:44] VITALS: BP 141/121; PULSE 112; RESP 20
[2021-02-08] MEDS ORDERED: THIAMINE 100 MG TAB PO SCH (07:30)
== END 2021-02-07 23:47 | disposition other institution (70) ==
LOC: EC 14:35
DX: K92.2 Gastrointestinal hemorrhage, unspecified (principal); R74.01 Elevation of levels of liver transaminase levels; I10 Essential (primary) hypertension; K21.9 Gastro-esophageal reflux disease without esophagitis; F17.200 Nicotine dependence, unspecified, uncomplicated; Z79.82 Long term (current) use of aspirin; Z79.899 Other long term (current) drug therapy
CPT/HCPCS: 36415; 93005; 86900; 86901; 80053; 84484; 85025; 85610; 85730; 86850; 82272; 87635; 71046; 99285; 96374; 96375; 96376 ×2; 96361 ×2; 96372; J2060; J3411; J2405; C9113

== ENCOUNTER → 2021-03-22 | Day surgery (SDC) | payer OTHER ==
[2021-03-19 14:00] VITALS: BMI 25.7
[~2021-03-22] MED LIST changes: -DEXAMETHASONE SOD PHOSPHATE 4 MG/ML 1 ML VIAL IV ONE; -HYDROmorphone 0.5 MG/0.5 ML SYRINGE IVP PRN; +LIDOCAINE 1% INJ 10MG/ML (20 ML MDV) ONE; +ONDANSETRON 4 MG/2 ML VIAL ONE; +PROPOFOL 10 MG/ML 20 ML VIAL IV ONE
[2021-03-22 13:05] VITALS: RESP 16; TEMP 97.6
--- NOTE | 2021-03-22 13:39 | P.PCN ---
Date of Procedure: 03/22/21 Procedure(s) Performed: BRIEF HISTORY: Patient is a 45-year-old, pleasant, white male with history of colon cancer results of the liver diagnosed in January 2021 and esophageal variceal bleeding for which she underwent ligation in the January. He scheduled for a follow-up upper endoscopy today.. PROCEDURE PERFORMED: Esophagogastroduodenoscopy with variceal ligation. PREOPERATIVE DIAGNOSIS: History of alcoholic cirrhosis of the liver/follow-up esophageal varices. IV sedation per anesthesia. PROCEDURE: After informed consent was obtained, the patient was brought into the endoscopy unit. IV sedation was administered by Anesthesia under continuous monitoring. Initially the Olympus GIF-140 video endoscope was inserted into the mouth. Esophagus intubated without any difficulty. It was gradually advanced into the stomach and duodenum and carefully examined. The bulb and the second part of the duodenum appeared normal. The scope at this time was withdrawn to the stomach, adequately insufflated with air, and upon careful examination, mucosa of the antrum, body, cardia and the fundus and changes consistent with mild to moderate portal hypertensive gastropathy The scope was then withdrawn into the esophagus. The GE junction was located at 39 cm from the incisors. Large distal esophageal varices were noted. At this time the scope was removed and esophageal variceal ligation equipment was introduced and the tip of the scope and esophagus intubated without any difficulty and was gradually advanced into the distal esophagus. Using suction total of 3 bands were deployed in the distal esophageal varices. The esophagus appeared normal. There were no erosions or ulcerations seen and the patient tolerated the procedure well. IMPRESSION: 1. Large distal esophageal varices status post recent ligation as described above. 2. [id number]: Hypertensive gastropathy.. RECOMMENDATIONS: The findings of this examination were discussed with the patient as well as his family. He will continue with propranolol 10 mg 3 times daily. We'll plan a repeat upper endoscopy in 6 months.
[2021-03-22 13:50] VITALS: BP 124/83
[2021-03-22 14:25] VITALS: PULSE 74
== END | disposition home or self-care (01) ==
LOC: ORWHC2ENDO 12:40
PROVIDERS: ATTEND Internal Medicine Gastroenterology
DX: K70.30 Alcoholic cirrhosis of liver without ascites (principal); I85.10 Secondary esophageal varices without bleeding; Z85.038 Personal history of other malignant neoplasm of large intestine; K76.6 Portal hypertension; K31.89 Other diseases of stomach and duodenum; Z79.899 Other long term (current) drug therapy; Z88.8 Allergy status to other drugs, medicaments and biological substances
CPT/HCPCS: 43244; J2405; J2001; J2704

== ENCOUNTER → 2021-05-06 | Outpatient (CLI) | payer OTHER ==
--- NOTE | 2021-05-06 11:06 | CT ---
EXAMINATION TYPE: CT chest w con DATE OF EXAM: 05/06/2021 COMPARISON: 820 HISTORY: Lump Rt anterior upper chest marked with BB CT DLP: 600 mGycm Automated exposure control for dose reduction was used. TECHNIQUE: CT scan of the chest is performed with IV Contrast, patient injected with 100 mL of Isovue 300. MIP Images are created on CT scanner and reviewed. 3D reconstructed images are created on an independent workstation and reviewed. FINDINGS: LUNGS: The lungs are grossly clear, there is no concerning parenchymal mass or nodule identified. T here is no pleural effusion or pneumothorax seen. The tracheobronchial tree is patent. MEDIASTINUM: There are no greater than 1 cm hilar or mediastinal lymph nodes. No pericardial effusi on is seen. OTHER: Diffuse low-attenuation throughout the liver suggestive of fatty infiltration. Hypertrophic c hanges of the spine. IMPRESSION: 1. No suspicious appearing mass. There is slight asymmetry in the area of palpable abnormality with r egard to degree of subcutaneous fat. Occasionally a lipoma could have a similar finding with difficul ty seeing the surrounding capsule by CT scan. Consider follow-up ultrasound if symptoms are persisten t.
== END | disposition home or self-care (01) ==
LOC: RADCTMAIN 09:19
PROVIDERS: ATTEND Family Medicine
DX: R22.2 Localized swelling, mass and lump, trunk (principal)
CPT/HCPCS: 71260; Q9967

== ENCOUNTER 2021-09-27 10:24 | Day surgery (SDC) | payer OTHER ==
[2021-09-25 15:14] VITALS: BMI 27.7
[~2021-09-27 10:24] MED LIST changes: -LACTATED RINGERS 1,000 ML IV SCH; +LIDOCAINE 1% (10MG/ML) FOR IV START INTRADERMA PRN; -LIDOCAINE 1% INJ 10MG/ML (20 ML MDV) ONE; -ONDANSETRON 4 MG/2 ML VIAL IVP ONE; -ONDANSETRON 4 MG/2 ML VIAL ONE; -PROPOFOL 10 MG/ML 20 ML VIAL IV ONE
[2021-09-27 10:44] VITALS: TEMP 97.7
[2021-09-27] MEDS: LACTATED RINGERS 1,000 ML IV SCH ×2 (10:49→13:07)
[2021-09-27] MEDS ORDERED: LIDOCAINE 2% INJ 20 MG/ML (2 ML VIAL) ONE (13:09)
[2021-09-27] MEDS ORDERED: PROPOFOL 10 MG/ML 20 ML VIAL IV ONE (13:09)
[2021-09-27] MEDS ORDERED: fentaNYL (PF) 50 MCG/ML 2 ML AMP ONE (13:09)
[2021-09-27] MEDS ORDERED: MIDAZOLAM 2 MG/2 ML VIAL ONE (13:09)
--- NOTE | 2021-09-27 13:26 | P.PCN ---
Date of Procedure: 09/27/21 Procedure(s) Performed: BRIEF HISTORY: Patient is a 45-year-old, pleasant, white male with history of alcohol cirrhosis of the liver and prior history of esophageal variceal bleeding in January 2021 for which she underwent EGD with variceal ligation. He scheduled for follow-up EGD today.. PROCEDURE PERFORMED: Esophagogastroduodenoscopy with variceal ligation . PREOPERATIVE DIAGNOSIS: Follow-up esophageal varices. IV sedation per anesthesia. PROCEDURE: After informed consent was obtained, the patient was brought into the endoscopy unit. IV sedation was administered by Anesthesia under continuous monitoring. Initially the Olympus GIF-140 video endoscope was inserted into the mouth. Esophagus intubated without any difficulty. It was gradually advanced into the stomach and duodenum and carefully examined. The bulb and the second part of the duodenum appeared normal. The scope at this time was withdrawn to the stomach, adequately insufflated with air, and upon careful examination, mucosa of the antrum, body, cardia and the fundus appeared normal. changes consistent with mild portal hypertensive gastropathy in the fundus of the stomach. The scope was then withdrawn into the esophagus. The GE junction was located at 39 cm from the incisors. The esophagus appeared normal. There were no erosions or ulcerations seen. There were small distal esophageal varices identified. The scope at this time was removed and esophageal variceal ligation equipment was introduced into the tip of the scope and esophagus intubated without any difficulty and was gradually advanced into the distal esophagus. Inspection 2 bands were deployed in the distal esophageal variceal columns and the patient tolerated the procedure well. IMPRESSION: 1..Small distal esophageal varices status post variceal ligation as described above and 2 bands were deployed 2..Mild portal hypertensive gastropathy RECOMMENDATIONS: The findings of this examination were discussed with the patient .as well as his family. He will continue with Inderal 10 mg 3 times daily and remain abstinent from alcohol. Plan a repeat upper endoscopy in 1 year.
[2021-09-27 13:45] VITALS: RESP 16
[2021-09-27 13:58] VITALS: BP 141/83; PULSE 71
== END 2021-09-27 14:30 | disposition home or self-care (01) ==
LOC: ORWHC2ENDO 10:24
PROVIDERS: ATTEND Internal Medicine Gastroenterology
DX: I85.10 Secondary esophageal varices without bleeding (principal); K70.30 Alcoholic cirrhosis of liver without ascites; K76.6 Portal hypertension; K31.89 Other diseases of stomach and duodenum; K21.9 Gastro-esophageal reflux disease without esophagitis; F17.200 Nicotine dependence, unspecified, uncomplicated; Z88.7 Allergy status to serum and vaccine; Z79.899 Other long term (current) drug therapy; Z82.49 Family history of ischemic heart disease and other diseases of the circulatory system; Z83.6 Family history of other diseases of the respiratory system; Z81.1 Family history of alcohol abuse and dependence; Z83.79 Family history of other diseases of the digestive system
CPT/HCPCS: 43244; J2250; J3010; J2704; J2001

== ENCOUNTER → 2021-10-25 | Outpatient (CLI) | payer OTHER ==
[2021-10-25 15:05] LABS: Basophils # (A) 0.17 X 10*3/uL (0.00-0.10); Basophils % (A) 1.9 %; Eosinophils % (A) 3.4 %; HCT 33.5 % (39.6-50.0); HGB 10.4 g/dL (13.0-17.0); Immature Grans, Automated 0.2 %; Lymphocytes # (A) 3.46 X 10*3/uL (0.90-5.00); Lymphocytes % (A) 38.9 %; MCH 24.2 pg (27.0-32.0); MCV 78.1 fL (80.0-97.0); Mean Platelet Volume 9.8 fL (9.5-12.2); Monocytes # (A) 0.84 X 10*3/uL (0.20-1.00); Monocytes % (A) 9.4 %; NRBC Per 100 WBC 0 /100 WBCS (0.0-0.0); Neutrophils # (A) 4.11 X 10*3/uL (1.80-7.70); Neutrophils % (A) 46.2 %; Platelet Count 349 X 10*3/uL (140-440); RBC 4.29 X 10*6/uL (4.40-5.60); RDW 21.9 % (11.5-14.5)
[2021-10-25 15:06] LABS: African American GFR (CKD) 123.1 (60.0-200.0); Albumin 4.3 g/dL (3.8-4.9); Albumin/Globulin Ratio 1.12 (1.60-3.17); Anion Gap 13.7 mmol/L (10.00-18.00); BUN/Creat Ratio 10.61 Ratio (12.00-20.00); Blood Urea Nitrogen 8.8 mg/dL (9.0-27.0); Calcium 9.2 mg/dL (8.7-10.3); Carbon Dioxide 19.5 mmol/L (20.0-27.5); Globulin 3.8 g/dL (1.6-3.3); Non-African American GFR(CKD) 106.2 (60.0-200.0); Potassium 3.7 mmol/L (3.5-5.5); Total Bilirubin 0.4 mg/dL (0.30-1.20); Total Protein 8.1 g/dL (6.2-8.2)
== END | disposition home or self-care (01) ==
LOC: LABWHC1 08:35
PROVIDERS: ATTEND Internal Medicine Gastroenterology
DX: K70.30 Alcoholic cirrhosis of liver without ascites (principal)
CPT/HCPCS: 36415; 80053; 82105; 85025

== ENCOUNTER → 2021-11-13 | Outpatient (CLI) | payer OTHER ==
--- NOTE | 2021-11-13 09:40 | US ---
EXAMINATION TYPE: US liver DATE OF EXAM: 11/13/2021 COMPARISON: CT & US 2021 CLINICAL HISTORY: K70.30 ALCOHOLIC CIRRHOSIS OF LIVER WITHOUT ASCITES. Elevated liver enzymes TECHNIQUE: Multiple sonographic images of the right upper quadrant are obtained. FINDINGS: EXAM MEASUREMENTS: Liver Length: 19.0 cm Gallbladder Wall: 0.2 cm CBD: 0.5 cm Right Kidney: 11.7 x 5.2 x 5.0 cm Pancreas: obscured by overlying midline bowel gas Liver: Enlarged, Attenuating, increased echogenicity, mildly heterogeneous Gallbladder: wnl Evidence for sonographic Brown's sign: no CBD: visualized portions wnl, limited by overlying bowel gas Right Kidney: wnl Suboptimal evaluation of the pancreas. Visualized liver remains heterogeneously hyperechoic. Evaluati on for focal masses suboptimal due to the heterogeneity. No surrounding ascites. No right-sided hydro nephrosis. No intraluminal gallstones. No biliary dilatation. IMPRESSION: Fatty infiltrative hepatocellular disease redemonstrated. No significant change from prio r studies.
== END | disposition home or self-care (01) ==
LOC: RADUSWWP 08:47
PROVIDERS: ATTEND Internal Medicine Gastroenterology
DX: K76.0 Fatty (change of) liver, not elsewhere classified (principal)
CPT/HCPCS: 76705

== ENCOUNTER → 2021-11-18 | Outpatient (CLI) | payer OTHER ==
--- NOTE | 2021-11-18 12:59 | XR ---
EXAMINATION TYPE: XR finger LT DATE OF EXAM: 11/18/2021 12:06 PM INDICATION: Patient age:Male; 45 years old; Reason for study: M79.645 pain L thumb; COMPARISON: None TECHNIQUE: Frontal, lateral and oblique views of the left hand were obtained. FINDINGS: Normal alignment of the visualized joints. No acute osseous pathology is identified. No e vidence of soft tissue swelling. Mild osteophyte formation of the metacarpal phalangeal joint with toy int space narrowing. IMPRESSION: 1. No acute osseous pathology. 2. Mild first digit metacarpophalangeal joint osteoarthrosis.
== END | disposition home or self-care (01) ==
LOC: RADXRMAIN 11:53
PROVIDERS: ATTEND Family Medicine
DX: M19.042 Primary osteoarthritis, left hand (principal)

== ENCOUNTER 2022-01-09 23:00 | Emergency (ER) | payer OTHER ==
[2022-01-10 00:06] VITALS: BP 107/74; PULSE 82; RESP 20; TEMP 97.9
--- NOTE | 2022-01-10 00:26 | XR ---
EXAMINATION TYPE: XR foot complete RT DATE OF EXAM: 01/10/2022 COMPARISON: NONE HISTORY: Ankle pain TECHNIQUE: 3 views FINDINGS: Metatarsals are intact. I see no fracture nor dislocation. There is small plantar calcaneal spur. Joint spaces are fairly normal. IMPRESSION: No acute abnormality of the right foot. No fracture.
--- NOTE | 2022-01-10 00:26 | XR ---
EXAMINATION TYPE: XR ankle complete RT DATE OF EXAM: 01/10/2022 COMPARISON: NONE HISTORY: Pain TECHNIQUE: 3 view FINDINGS: Ankle mortise is anatomic. There is soft tissue swelling over the lateral malleolus. There is likely ankle joint effusion. Subtalar joint is intact. No fracture seen. IMPRESSION: Soft tissue swelling and ankle joint effusion. No fracture.
--- NOTE | 2022-01-10 01:55 | ED ---
Lower Extremity Injury HPI - General Chief Complaint: Extremity Injury, Lower Stated Complaint: Right ankle injury Time Seen by Provider: 01/10/22 01:52 Source: patient, RN notes reviewed, old records reviewed Mode of arrival: ambulatory Limitations: no limitations - History of Present Illness Initial Comments: This is a 46-year-old male DF for evaluation. Patient comes in for right ankle pain right ankle injury. Simple COPD ankle well walking no specific traumatic injury was ever noted. Patient in general does not feel well with severe pain in the right ankle worsening was trying to ambulate MD Complaint: ankle injury -: hour(s) Injury: Ankle: Left Type of Injury: inversion Place: home Severity: moderate Severity scale (1-10): 7 Improves With: nothing Worsens With: weight bearing Context: walking, jumping - Related Data Home Medications Medication Instructions Recorded Confirmed Omeprazole 20 mg PO DAILY 09/03/17 09/27/21 Magnesium 250 mg PO DAILY 02/07/21 09/27/21 Potassium Chloride ER [K-Dur 10] 20 meq PO DAILY 02/07/21 09/27/21 Antihistamine (Unknown Name) 1 dose PO DIRECTED PRN 03/19/21 09/27/21 Propranolol [Inderal] 10 mg PO TID 03/19/21 09/27/21 Ergocalciferol [Vitamin D2 (1250 1,250 mcg PO Q3D 09/25/21 09/27/21 Mcg = 34048 Iu)] hydrOXYzine HCL 25 mg PO HS 09/25/21 09/27/21 Allergies Allergy/AdvReac Type Severity Reaction Status Date / Time tuberculin, purified protein Allergy Swelling/Redness Verified 01/10/22 00:06 deriva and Itching/NEGATIVE chest xray Review of Systems ROS Statement: Those systems with pertinent positive or pertinent negative responses have been documented in the HPI. ROS Other: All systems not noted in ROS Statement are negative. Past Medical History Past Medical History: GERD/Reflux, Hypertension, Liver Disease Additional Past Medical History / Comment(s): cirrohosis of liver., positive covid 11/2020, esophageal varices. History of Any Multi-Drug Resistant Organisms: None Reported Past Surgical History: Appendectomy, Orthopedic Surgery Additional Past Surgical History / Comment(s): R elbow fracture with plate/screws since removed, R shoulder torn ligament repair, wisdom teeth extractions., esophageal varices/egd Past Anesthesia/Blood Transfusion Reactions: Previous Problems w/ Anesthesia, Postoperative Nausea & Vomiting (PONV) Additional Past Anesthesia/Blood Transfusion Reaction / Comment(s): Pt states once he had PONV and difficulty urinating post surgery. Past Psychological History: No Psychological Hx Reported Smoking Status: Current every day smoker Past Alcohol Use History: Occasional Past Drug Use History: Marijuana - Past Family History Mother Family Medical History: Congestive Heart Failure (CHF) Additional Family Medical History / Comment(s): AT AGE 62 FROM CHF. Sister(s) Family Medical History: Deep Vein Thrombosis (DVT) Additional Family Medical History / Comment(s): Chron's disease Father Family Medical History: COPD Additional Family Medical History / Comment(s): Alcoholism General Exam Limitations: no limitations General appearance: alert, in no apparent distress Head exam: Present: atraumatic, normocephalic, normal inspection Eye exam: Present: normal appearance, PERRL, EOMI. Absent: scleral icterus, conjunctival injection, periorbital swelling ENT exam: Present: normal exam, mucous membranes moist Neck exam: Present: normal inspection. Absent: tenderness, meningismus, lymphadenopathy Respiratory exam: Present: normal lung sounds bilaterally. Absent: respiratory distress, wheezes, rales, rhonchi, stridor Cardiovascular Exam: Present: regular rate, normal rhythm, normal heart sounds. Absent: systolic murmur, diastolic murmur, rubs, gallop, clicks GI/Abdominal exam: Present: soft, normal bowel sounds. Absent: distended, tenderness, guarding, rebound, rigid Extremities exam: Present: normal inspection, full ROM, normal capillary refill. Absent: tenderness, pedal edema, joint swelling, calf tenderness Back exam: Present: normal inspection Neurological exam: Present: alert, oriented X3, CN II-XII intact Psychiatric exam: Present: normal affect, normal mood Skin exam: Present: warm, dry, intact, normal color. Absent: rash Course Vital Signs 01/10/22 00:03 Temperature 97.9 F Pulse Rate 82 Respiratory 20 Rate Blood Pressure 107/74 O2 Sat by Pulse 98 Oximetry - Reevaluation(s) Reevaluation #1: 01/10/22 medical record is reviewed patient symptoms improved here in the ED patient informed of results and questions answered Medical Decision Making - Medical Decision Making 46 male with right ankle pain. Ankle sprain x-ray negative for fracture patient can be discharged - Radiology Data Radiology results: report reviewed (X-ray right ankle negative for acute disease), image reviewed Disposition Clinical Impression: Right ankle sprain Disposition: HOME SELF-CARE Condition: Good Instructions (If sedation given, give patient instructions): Ankle Sprain (ED) Is patient prescribed a controlled substance at d/c from ED?: No Referrals: Concetta Doe MD [Primary Care Provider] - 1-2 days Time of Disposition: 02:00
[2022-01-10] MEDS ORDERED: Acetaminophen-Codeine 300-30mg TAB PO STA (02:10)
== END 2022-01-10 02:35 | disposition home or self-care (01) ==
LOC: EC 23:00
DX: S93.401A Sprain of unspecified ligament of right ankle, initial encounter (principal); K21.9 Gastro-esophageal reflux disease without esophagitis; I10 Essential (primary) hypertension; F17.200 Nicotine dependence, unspecified, uncomplicated; Z88.8 Allergy status to other drugs, medicaments and biological substances; Z86.16 Personal history of COVID-19; Z79.899 Other long term (current) drug therapy; X50.9XXA Other and unspecified overexertion or strenuous movements or postures, initial encounter; Y93.39 Activity, other involving climbing, rappelling and jumping off; Y92.89 Other specified places as the place of occurrence of the external cause
CPT/HCPCS: 99283

== ENCOUNTER 2022-03-17 14:23 | Emergency (ER) | payer OTHER ==
[2022-03-17 14:28] VITALS: TEMP 97.8
--- NOTE | 2022-03-17 14:28 | ED ---
General Adult HPI - General Source: patient, RN notes reviewed Mode of arrival: ambulatory Limitations: no limitations <Camron Bravo - Last Filed: 03/17/22 14:27> - General Source: patient, RN notes reviewed Mode of arrival: ambulatory Limitations: no limitations <Jaylin Hernandez - Last Filed: 03/18/22 00:04> - General Chief complaint: Abdominal Pain Stated complaint: Cirrhosis of the Liver Time Seen by Provider: 03/17/22 14:27 - History of Present Illness Initial comments: 46-year-old male presents emergency Department with chief complaint of abdominal pain. Patient states that he was just released from [facility] after 14 day stay of alcohol rehab. Patient states she's had increase abdominal pain, distention states that his alcohol liver cirrhosis. Patient states that he has a bad taste in his mouth he states he tastes pus but denies any dental issues. States pain is more in the mid to right-sided area. No fevers or chills patient states is for today sober (Camron Bravo) Upon my evaluation with the patient, he confirms the information listed above. He is a patient of Dr. Wisdom for the liver cirrhosis. He last saw her in December and has a follow up scheduled April 16. (Jaylin Hernandez) - Related Data Home Medications Medication Instructions Recorded Confirmed Omeprazole 20 mg PO DAILY 09/03/17 09/27/21 Magnesium 250 mg PO DAILY 02/07/21 09/27/21 Potassium Chloride ER [K-Dur 10] 20 meq PO DAILY 02/07/21 09/27/21 Antihistamine (Unknown Name) 1 dose PO DIRECTED PRN 03/19/21 09/27/21 Propranolol [Inderal] 10 mg PO TID 03/19/21 09/27/21 Ergocalciferol [Vitamin D2 (1250 1,250 mcg PO Q3D 09/25/21 09/27/21 Mcg = 67847 Iu)] hydrOXYzine HCL 25 mg PO HS 09/25/21 09/27/21 Allergies Allergy/AdvReac Type Severity Reaction Status Date / Time tuberculin, purified protein Allergy Swelling/Redness Verified 01/10/22 00:06 deriva and Itching/NEGATIVE chest xray Review of Systems ROS Other: All systems not noted in ROS Statement are negative. <Camron Bravo - Last Filed: 03/17/22 14:27> ROS Other: All systems not noted in ROS Statement are negative. <Jaylin Hernandez - Last Filed: 03/18/22 00:04> ROS Statement: Those systems with pertinent positive or pertinent negative responses have been documented in the HPI. Past Medical History Past Medical History: GERD/Reflux, Hypertension, Liver Disease Additional Past Medical History / Comment(s): cirrohosis of liver., positive covid 11/2020, esophageal varices. History of Any Multi-Drug Resistant Organisms: None Reported Past Surgical History: Appendectomy, Orthopedic Surgery Additional Past Surgical History / Comment(s): R elbow fracture with plate/screws since removed, R shoulder torn ligament repair, wisdom teeth extractions., esophageal varices/egd Past Anesthesia/Blood Transfusion Reactions: Previous Problems w/ Anesthesia, Postoperative Nausea & Vomiting (PONV) Additional Past Anesthesia/Blood Transfusion Reaction / Comment(s): Pt states once he had PONV and difficulty urinating post surgery. Past Psychological History: No Psychological Hx Reported Smoking Status: Current every day smoker Past Alcohol Use History: Occasional Past Drug Use History: Marijuana - Past Family History Mother Family Medical History: Congestive Heart Failure (CHF) Additional Family Medical History / Comment(s): AT AGE 62 FROM CHF. Sister(s) Family Medical History: Deep Vein Thrombosis (DVT) Additional Family Medical History / Comment(s): Chron's disease Father Family Medical History: COPD Additional Family Medical History / Comment(s): Alcoholism <Camron Bravo - Last Filed: 03/17/22 14:27> General Exam Limitations: no limitations General appearance: alert, in no apparent distress Head exam: Present: atraumatic, normocephalic, normal inspection Respiratory exam: Present: normal lung sounds bilaterally. Absent: respiratory distress, wheezes, rales, rhonchi, stridor Cardiovascular Exam: Present: regular rate, normal rhythm, normal heart sounds. Absent: systolic murmur, diastolic murmur, rubs, gallop, clicks GI/Abdominal exam: Present: distended, tenderness (Diffuse) Neurological exam: Present: alert, oriented X3, CN II-XII intact Psychiatric exam: Present: normal affect, normal mood Skin exam: Present: warm, dry, intact, normal color. Absent: rash <Jaylin Hernandez - Last Filed: 03/18/22 00:04> Course Vital Signs 03/17/22 03/17/22 14:25 17:41 Temperature 97.8 F Pulse Rate 84 78 Respiratory 16 18 Rate Blood Pressure 116/80 126/90 O2 Sat by Pulse 98 97 Oximetry Medical Decision Making - Lab Data Result diagrams: 03/17/22 14:51 03/17/22 14:51 - Radiology Data Radiology results: report reviewed, image reviewed <Jaylin Hernandez - Last Filed: 03/18/22 00:04> - Medical Decision Making This is a 46-year-old male who presents to the emergency department for abdominal pain and distention. Was pt. sent in by a medical professional or institution? @ -No Did you speak to anyone other than the patient for history? @ -His Did you review nursing and triage notes? @ -Yes, and I agree, it is accurate with regards to the patient's symptoms. Were old charts reviewed? @ -No Differential Diagnosis? @ -Differential Abdominal Pain Men: Appendicitis, cholecystitis, diverticulosis, ischemic bowel, pancreatitis, hepatitis, UTI, gastroenteritis, AAA, incarcerated hernia, bowel obstruction, constipation, inflammatory bowel, hepatitis, peptic ulcer disease, splenic infarction, perforated viscus, testicular torsion, this is not meant to be an all-inclusive list CT interpreted by me (1pt min.)? @ -CT scan of the abdomen and pelvis obtained. My interpretation is consistent with liver cirrhosis. There is no evidence of bowel wall thickening or dilation. What testing was considered but not performed? (CT, X-rays, U/S, labs)? Why? @ -None What meds were considered but not given? Why? @ -None Did you discuss the management of the patient with other professionals? @ -No Did you reconcile home meds? @ -No Was smoking cessation discussed for >3mins.? @ -No Was critical care preformed (if so, how long)? @ -No Were there social determinants of health that impacted care today? How? (Homelessness, low income, unemployed, alcoholism, drug addiction, transportation, low edu. Level, literacy, decrease access to med. care, long term, rehab)? @ -Alcoholism Was there de-escalation of care discussed even if they declined? (Discuss DNR or withdrawal of care, Hospice)? @ -No What co-morbidities impacted this encounter? (DM, HTN, Smoking, COPD, CAD, Cancer, CVA, Hep., AIDS, mental health diagnosis, sleep apnea, morbid obesity)? @ -Cirrhosis, alcoholism Was patient admitted / discharged? @ -Discharged. Lab work obtained and found to be nonactionable. Computed tomography scan of the abdomen and pelvis reveals no acute findings. Findings discussed with the patient. Advised that he may be experiencing a vitamin deficiency as a result of the alcoholism, which may be contributing to his changes in taste. Advised to begin an [id number] multivitamin. He is also instructed to contact Dr. Wisdom regarding his symptoms to see if a sooner follow-up appointment is indicated. He has a follow-up appointment scheduled with his primary care provider for later this week, which I advised he follow through with as scheduled for reevaluation of his symptoms. Undiagnosed new problem with uncertain prognosis? @ -None Drug Therapy requiring intensive monitoring for toxicity (Heparin, Nitro, Insulin, Cardizem)? @ -None Were any procedures done? @ -None Diagnosis/symptom? @ -Cirrhosis Acute, or Chronic, or Acute on Chronic? @ -Chronic Uncomplicated (without systemic symptoms) or Complicated (systemic symptoms)? @ -Uncomplicated Side effects of treatment? @ -None Exacerbation, Progression, or Severe Exacerbation] @ -None Poses a threat to life or bodily function? @ -No Return precautions reviewed in depth, the patient is instructed to return to the emergency department with any new, worsening, or concerning symptoms. Patient verbalized understanding. This case was discussed in detail with the attending ED physician, Dr. Hernandez. Presentation, findings, and treatment plan discussed in detail as well. (Jaylin Hernandez) - Lab Data Lab Results 03/17/22 03/17/22 03/17/22 Range/Units 14:51 14:51 14:51 WBC 8.6 (3.8-10.6) k/uL RBC 4.68 (4.30-5.90) m/uL Hgb 14.6 (13.0-17.5) gm/dL Hct 44.4 (39.0-53.0) % MCV 95.0 (80.0-100.0) fL MCH 31.1 (25.0-35.0) pg MCHC 32.8 (31.0-37.0) g/dL RDW 16.6 H (11.5-15.5) % Plt Count 221 (150-450) k/uL MPV 8.2 Neutrophils % 53 % Lymphocytes % 29 % Monocytes % 10 % Eosinophils % 3 % Basophils % 1 % Neutrophils # 4.6 (1.3-7.7) k/uL Lymphocytes # 2.5 (1.0-4.8) k/uL Monocytes # 0.9 (0-1.0) k/uL Eosinophils # 0.3 (0-0.7) k/uL Basophils # 0.1 (0-0.2) k/uL Anisocytosis Slight PT 11.2 (9.0-12.0) sec INR 1.1 (<1.2) APTT 24.8 (22.0-30.0) sec Sodium (137-145) mmol/L Potassium (3.5-5.1) mmol/L Chloride (98-107) mmol/L Carbon Dioxide (22-30) mmol/L Anion Gap mmol/L BUN (9-20) mg/dL Creatinine (0.66-1.25) mg/dL Est GFR (CKD-EPI)AfAm (>60 ml/min/1.73 sqM) Est GFR (CKD-EPI)NonAf (>60 ml/min/1.73 sqM) Glucose (74-99) mg/dL Plasma Lactic Acid Reggie (0.7-2.0) mmol/L Calcium (8.4-10.2) mg/dL Total Bilirubin (0.2-1.3) mg/dL AST (17-59) U/L ALT (4-49) U/L Alkaline Phosphatase (38-126) U/L Total Protein (6.3-8.2) g/dL Albumin (3.5-5.0) g/dL Amylase (30-110) U/L Lipase (23-300) U/L Urine Color Yellow Urine Appearance Clear (Clear) Urine pH 6.0 (5.0-8.0) Ur Specific Purling 1.029 (1.001-1.035) Urine Protein 1+ H (Negative) Urine Glucose (UA) Negative (Negative) Urine Ketones Negative (Negative) Urine Blood Negative (Negative) Urine Nitrite Negative (Negative) Urine Bilirubin Negative (Negative) Urine Urobilinogen 3.0 (<2.0) mg/dL Ur Leukocyte Esterase Negative (Negative) Urine RBC 1 (0-5) /hpf Urine WBC 1 (0-5) /hpf Ur Squamous Epith Cells <1 (0-4) /hpf Hyaline Casts 1 (0-2) /lpf Urine Mucus Few H (None) /hpf 03/17/22 03/17/22 Range/Units 14:51 14:51 WBC (3.8-10.6) k/uL RBC (4.30-5.90) m/uL Hgb (13.0-17.5) gm/dL Hct (39.0-53.0) % MCV (80.0-100.0) fL MCH (25.0-35.0) pg MCHC (31.0-37.0) g/dL RDW (11.5-15.5) % Plt Count (150-450) k/uL MPV Neutrophils % % Lymphocytes % % Monocytes % % Eosinophils % % Basophils % % Neutrophils # (1.3-7.7) k/uL Lymphocytes # (1.0-4.8) k/uL Monocytes # (0-1.0) k/uL Eosinophils # (0-0.7) k/uL Basophils # (0-0.2) k/uL Anisocytosis PT (9.0-12.0) sec INR (<1.2) APTT (22.0-30.0) sec Sodium 140 (137-145) mmol/L Potassium 4.4 (3.5-5.1) mmol/L Chloride 110 H (98-107) mmol/L Carbon Dioxide 21 L (22-30) mmol/L Anion Gap 9 mmol/L BUN 16 (9-20) mg/dL Creatinine 0.80 (0.66-1.25) mg/dL Est GFR (CKD-EPI)AfAm >90 (>60 ml/min/1.73 sqM) Est GFR (CKD-EPI)NonAf >90 (>60 ml/min/1.73 sqM) Glucose 101 H (74-99) mg/dL Plasma Lactic Acid Reggie 1.2 (0.7-2.0) mmol/L Calcium 9.7 (8.4-10.2) mg/dL Total Bilirubin 0.7 (0.2-1.3) mg/dL AST 57 (17-59) U/L ALT 72 H (4-49) U/L Alkaline Phosphatase 123 (38-126) U/L Total Protein 8.7 H (6.3-8.2) g/dL Albumin 4.5 (3.5-5.0) g/dL Amylase 101 (30-110) U/L Lipase 236 (23-300) U/L Urine Color Urine Appearance (Clear) Urine pH (5.0-8.0) Ur Specific Purling (1.001-1.035) Urine Protein (Negative) Urine Glucose (UA) (Negative) Urine Ketones (Negative) Urine Blood (Negative) Urine Nitrite (Negative) Urine Bilirubin (Negative) Urine Urobilinogen (<2.0) mg/dL Ur Leukocyte Esterase (Negative) Urine RBC (0-5) /hpf Urine WBC (0-5) /hpf Ur Squamous Epith Cells (0-4) /hpf Hyaline Casts (0-2) /lpf Urine Mucus (None) /hpf Disposition <Camron Bravo - Last Filed: 03/17/22 14:27> Is patient prescribed a controlled substance at d/c from ED?: No <Jaylin Hernandez - Last Filed: 03/18/22 00:04> Clinical Impression: Cirrhosis, Altered taste Disposition: HOME SELF-CARE Instructions (If sedation given, give patient instructions): Cirrhosis (ED) Additional Instructions: Return to the emergency department with any new, worsening, or concerning symptoms. Begin taking an [id number] multivitamin in the event you have nutrient deficiencies contributing to your taste changes. Follow-up with your primary care provider as scheduled this week. Take [id number] ibuprofen as needed for pain relief. Continue to abstain from alcohol. Contact Dr. Wisdom's office and explain your symptoms to see if she wants to see you sooner for any additional testing. Referrals: Concetta Doe MD [Primary Care Provider] - 1-2 days
[2022-03-17 15:06] LABS: Anisocytosis Slight; Basophils # (A) 0.1 k/uL (0-0.2); Basophils % (A) 1 %; Eosinophils # (A) 0.3 k/uL (0-0.7); Eosinophils % (A) 3 %; HCT 44.4 % (39.0-53.0); HGB 14.6 gm/dL (13.0-17.5); Lymphocytes # (A) 2.5 k/uL (1.0-4.8); Lymphocytes % (A) 29 %; MCH 31.1 pg (25.0-35.0); MCHC 32.8 g/dL (31.0-37.0); Mean Platelet Volume 8.2; Monocytes # (A) 0.9 k/uL (0-1.0); Monocytes % (A) 10 %; Neutrophils # (A) 4.6 k/uL (1.3-7.7); Neutrophils % (A) 53 %; Platelet Count 221 k/uL (150-450); RBC 4.68 m/uL (4.30-5.90); RDW 16.6 % (11.5-15.5); WBC 8.6 k/uL (3.8-10.6)
[2022-03-17 15:09] LABS: Appearance,Urine Clear (Clear); Bilirubin,Urine Negative (Negative); Blood,Urine Negative (Negative); Color,Urine Yellow; Glucose,Urine (UA) Negative (Negative); Hyaline Casts,Urine 1 /lpf (0-2); Ketones,Urine Negative (Negative); Leukocyte Esterase,Urine Negative (Negative); Mucus,Urine Few /hpf; Nitrite,Urine Negative (Negative); Protein,Urine 1+ (Negative); RBC,Urine 1 /hpf (0-5); Specific Gravity,Urine 1.029 (1.001-1.035); Squamous Epithelial Cell,Urine <1 /hpf (0-4); WBC,Urine 1 /hpf (0-5)
[2022-03-17 15:17] LABS: ALT 72 U/L (4-49); AST 57 U/L (17-59); African American GFR (CKD) >90 (>60 ml/min/1.73 sqM); Albumin 4.5 g/dL (3.5-5.0); Alkaline Phosphatase 123 U/L (38-126); Amylase 101 U/L (30-110); Anion Gap 9 mmol/L; Blood Urea Nitrogen 16 mg/dL (9-20); Calcium 9.7 mg/dL (8.4-10.2); Carbon Dioxide 21 mmol/L (22-30); Chloride 110 mmol/L (98-107); Glucose 101 mg/dL (74-99); Lipase 236 U/L (23-300); Non-African American GFR(CKD) >90 (>60 ml/min/1.73 sqM); Potassium 4.4 mmol/L (3.5-5.1); Sodium 140 mmol/L (137-145); Total Bilirubin 0.7 mg/dL (0.2-1.3); Total Protein 8.7 g/dL (6.3-8.2)
[2022-03-17 15:39] LABS: INR 1.1 (<1.2); Partial Thromboplastin Time 24.8 sec (22.0-30.0); Prothrombin Time 11.2 sec (9.0-12.0)
--- NOTE | 2022-03-17 16:07 | CT ---
EXAMINATION TYPE: CT abdomen pelvis w con DATE OF EXAM: 03/17/2022 COMPARISON: Prior CT September 24, 2019 HISTORY: Abdominal pain and distension. Hx cirrhosis of liver, appy. CT DLP: 1387.8 mGycm, Automated Exposure Control for Dose Reduction was Utilized. CONTRAST: CT scan of the abdomen and pelvis is performed without neural oral and with IV Contrast, patient inje cted with 100 mL of Isovue 300. FINDINGS: LUNG BASES: No significant abnormality is appreciated. LIVER/GB: Liver now has peripheral lobulated contour consistent with underlying cirrhosis. Liver size is normal. No biliary dilatation. No surrounding ascites. Contracted gallbladder. PANCREAS: No significant abnormality is seen. SPLEEN: No significant abnormality is seen. ADRENALS: No significant abnormality is seen. KIDNEYS: There is 2.0 x 0.8 cm low dense lesion delayed images right kidney axial image 30 consistent with simple appearing central thin-walled cyst coronal image 76 for reference. BOWEL: Surgical changes from appendectomy at base of cecum redemonstrated. Slightly suboptimal evalua tion without enteric contrast. No suspicious small or large bowel dilatation seen. PROSTATE/SEMINAL VESICLES: No gross abnormality seen. LYMPH NODES: No greater than 1cm abdominal or pelvic lymph nodes are appreciated. OSSEOUS STRUCTURES: No significant abnormality is seen. OTHER: Mild calcified plaque of the aorta extends into branch vessels. Recanalized umbilical vein is now present. Anterior abdominal wall varices now seen. No new focal ascites present. IMPRESSION: Cirrhotic appearance to liver more evident on current study. No new ascites. No bowel obs truction. No acute findings are evident.
[2022-03-17 17:42] VITALS: BP 126/90; PULSE 78; RESP 18
== END 2022-03-17 17:41 | disposition home or self-care (01) ==
LOC: EC 14:23
DX: K74.60 Unspecified cirrhosis of liver (principal); R43.9 Unspecified disturbances of smell and taste; K21.9 Gastro-esophageal reflux disease without esophagitis; I10 Essential (primary) hypertension; F17.200 Nicotine dependence, unspecified, uncomplicated; F12.90 Cannabis use, unspecified, uncomplicated; Z88.8 Allergy status to other drugs, medicaments and biological substances; Z79.899 Other long term (current) drug therapy
CPT/HCPCS: 36415; 80053; 82150; 83605; 83690; 85025; 85610; 85730; 81001; 74177; 99284; Q9967

== ENCOUNTER → 2022-09-02 | Outpatient (CLI) | payer OTHER ==
[2022-09-02 15:35] LABS: ALT 42 U/L (10-49); AST 39 U/L (14-35); Albumin 4.1 d/dL (3.8-4.9); Albumin/Globulin Ratio 1.24 Ratio (1.60-3.17); Alkaline Phosphatase 139 U/L (41-126); BUN/Creat Ratio 10.14 Ratio (12.00-20.00); Blood Urea Nitrogen 7.1 mg/dL (9.0-27.0); Calcium 9.7 mg/dL (8.7-10.3); Carbon Dioxide 19.7 mmol/L (21.6-31.8); Chloride 103 mmol/L (96-109); Globulin 3.3 d/dL (1.6-3.3); Glucose 149 mg/dL (70-110); Potassium 4.3 mmol/L (3.5-5.5); Sodium 136 mmol/L (135-145); Total Bilirubin 0.4 mg/dL (0.3-1.2); Total Protein 7.4 d/dL (6.2-8.2)
[2022-09-02 16:13] LABS: Eosinophils # (A) 0.22 X 10*3/uL (0.04-0.35); Eosinophils % (A) 2.2 %; HCT 46.5 % (39.6-50.0); HGB 15.1 d/dL (12.0-15.0); Lymphocytes # (A) 2.12 X 10*3/uL (0.90-5.00); Lymphocytes % (A) 21.5 %; MCH 31.3 pg (27.0-32.0); MCHC 32.5 d/dL (32.0-37.0); MCV 96.5 FL (80.0-97.0); Monocytes # (A) 0.78 X 10*3/uL (0.20-1.00); Monocytes % (A) 7.9 %; NRBC Per 100 WBC 0 X 10*3/uL (0.00-0.01); Neutrophils # (A) 6.63 X 10*3/uL (1.80-7.70); Neutrophils % (A) 67.1 %; Platelet Count 181 X 10*3/uL (140-440); RBC 4.82 X 10*6/uL (4.40-5.60); RDW 13.4 % (11.5-14.5); WBC 9.88 X 10*3/uL (4.50-10.00)
== END | disposition home or self-care (01) ==
LOC: LABWHC1 09:33
PROVIDERS: ATTEND Nurse Practitioner Family
DX: K70.30 Alcoholic cirrhosis of liver without ascites (principal)
CPT/HCPCS: 36415; 80053; 82105; 85025

== ENCOUNTER 2022-09-09 19:21 | Emergency (ER) | payer OTHER ==
[2022-09-09 19:25] VITALS: RESP 18
[2022-09-09 20:45] LABS: Amphetamine Screen,Urine Not Detected (NotDetected); Barbiturate Screen,Urine Not Detected (NotDetected); Benzodiazepines Screen,Urine Not Detected (NotDetected); Cocaine Screen,Urine Not Detected (NotDetected); Methadone Screen, Urine Not Detected (NotDetected); Opiate Screen,Urine Not Detected (NotDetected); Oxycodone Screen, Urine Not Detected (NotDetected); Phencyclidine Screen,Urine Not Detected (NotDetected); Tricyclic Antidepressant,Urine Not Detected (NotDetected); Urn Cannabinoid Scrn Detected (NotDetected)
--- NOTE | 2022-09-10 02:04 | ED ---
General Adult HPI - General Chief complaint: Psychiatric Symptoms Stated complaint: Petition Time Seen by Provider: 09/09/22 19:30 Source: patient, police, RN notes reviewed, old records reviewed Mode of arrival: ambulatory Limitations: no limitations - History of Present Illness Initial comments: 46-year-old male presenting with alcohol intoxication and suicidal thoughts with plan. He states that he would kill himself with a gun. - Related Data Home Medications Medication Instructions Recorded Confirmed Omeprazole 20 mg PO DAILY 09/03/17 09/09/22 Magnesium 250 mg PO DAILY 02/07/21 09/09/22 Potassium Chloride ER [K-Dur 10] 10 meq PO BID-W/MEALS 02/07/21 09/09/22 Propranolol [Inderal] 10 mg PO TID 03/19/21 09/09/22 hydrOXYzine HCL 25 mg PO HS PRN 09/25/21 09/09/22 Ferrous Sulfate [Iron] 325 mg PO BID 09/09/22 09/09/22 Rosuvastatin [Crestor] 20 mg PO HS 09/09/22 09/09/22 Allergies Allergy/AdvReac Type Severity Reaction Status Date / Time tuberculin, purified protein Allergy Swelling/Redness Verified 09/09/22 22:21 deriva and Itching/NEGATIVE chest xray Review of Systems ROS Statement: Those systems with pertinent positive or pertinent negative responses have been documented in the HPI. ROS Other: All systems not noted in ROS Statement are negative. Past Medical History Past Medical History: GERD/Reflux, Hypertension, Liver Disease Additional Past Medical History / Comment(s): cirrohosis of liver., positive covid 11/2020, esophageal varices. History of Any Multi-Drug Resistant Organisms: None Reported Past Surgical History: Appendectomy, Orthopedic Surgery Additional Past Surgical History / Comment(s): R elbow fracture with plate/screws since removed, R shoulder torn ligament repair, wisdom teeth extractions., esophageal varices/egd Past Anesthesia/Blood Transfusion Reactions: Previous Problems w/ Anesthesia, Postoperative Nausea & Vomiting (PONV) Additional Past Anesthesia/Blood Transfusion Reaction / Comment(s): Pt states once he had PONV and difficulty urinating post surgery. Past Psychological History: No Psychological Hx Reported Smoking Status: Current every day smoker Past Alcohol Use History: Daily Past Drug Use History: Marijuana - Past Family History Mother Family Medical History: Congestive Heart Failure (CHF) Additional Family Medical History / Comment(s): AT AGE 62 FROM CHF. Sister(s) Family Medical History: Deep Vein Thrombosis (DVT) Additional Family Medical History / Comment(s): Chron's disease Father Family Medical History: COPD Additional Family Medical History / Comment(s): Alcoholism General Exam Limitations: no limitations General appearance: alert, anxious Head exam: Present: atraumatic, normocephalic Eye exam: Present: normal appearance, PERRL ENT exam: Present: normal exam Neck exam: Present: normal inspection. Absent: tenderness, meningismus Respiratory exam: Present: normal lung sounds bilaterally. Absent: respiratory distress, wheezes Cardiovascular Exam: Present: regular rate, normal rhythm GI/Abdominal exam: Present: soft. Absent: distended, tenderness, guarding Extremities exam: Present: normal inspection, normal capillary refill. Absent: pedal edema Neurological exam: Present: alert, oriented X3, CN II-XII intact. Absent: motor sensory deficit Psychiatric exam: Present: depressed, agitated, suicidal ideation Skin exam: Present: warm, dry, intact Course Vital Signs 09/09/22 19:22 Temperature 99 F Pulse Rate 90 Respiratory 18 Rate Blood Pressure 131/92 O2 Sat by Pulse 96 Oximetry - Reevaluation(s) Reevaluation #1: 09/10/22 02:04 Clear for EPS. Medical Decision Making - Medical Decision Making Was pt. sent in by a medical professional or institution ([facility], OCEANIC SCIENCES PROFESSOR, urgent care, hospital, or residential...) When possible be specific @ -No Did you speak to anyone other than the patient for history (EMS, parent, family, police, friend...)? What history was obtained from this source @ -No Did you review nursing and triage notes (agree or disagree)? Why? @ -I reviewed and agree with nursing and triage notes Were old charts reviewed (outside hosp., previous admission, EMS record, old EKG, old radiological studies, urgent care reports/EKG's, residential records)? Report findings @ -No old charts were reviewed Differential Diagnosis (chest pain, altered mental status, abdominal pain women, abdominal pain men, vaginal bleeding, weakness, fever, dyspnea, syncope, headache, dizziness, GI bleed, back pain, seizure, CVA, palpatations, mental health, musculoskeletal)? @Differential Mental Health Depression, anxiety, bipolar, psychosis, schizophrenia, borderline personality, situational depression, adjustment disorder, behavioral disorder, brain tumor, malingering, substance abuse, encephalopathy, medication reaction, dementia, hypothyroidism, degenerative neurologic disorder, lupus.... This is not meant to be all-inclusive list EKG interpreted by me (3pts min.). @ -As above X-rays interpreted by me (1pt min.). @ -None done CT interpreted by me (1pt min.). @ -None done U/S interpreted by me (1pt. min.). @ -None done What testing was considered but not performed or refused? (CT, X-rays, U/S, labs)? Why? @ -None What meds were considered but not given or refused? Why? @ -None Did you discuss the management of the patient with other professionals (professionals i.e. , PA, OCEANIC SCIENCES PROFESSOR, lab, RT, psych nurse, social worker school, frame table operator, teacher, president and chief commercial officer, returned case inspector)? Give summary @ -EPS nurse Was smoking cessation discussed for >3mins.? @ -No Was critical care preformed (if so, how long)? @ -No Were there social determinants of health that impacted care today? How? (Homelessness, low income, unemployed, alcoholism, drug addiction, transportation, low edu. Level, literacy, decrease access to med. care, fci, rehab)? @ -No Was there de-escalation of care discussed even if they declined (Discuss DNR or withdrawal of care, Hospice)? DNR status @ -No What co-morbidities impacted this encounter? (DM, HTN, Smoking, COPD, CAD, Cancer, CVA, ARF, Chemo, Hep., AIDS, mental health diagnosis, sleep apnea, morbid obesity)? @ -Alcohol use, depression Was patient admitted / discharged? Hospital course, mention meds given and route, prescriptions, significant lab abnormalities, going to OR and other pertinent info. @ -[46-year-old man who presented with alcohol intoxication and suicidal thoughts and ideation. After the patient was sober he completely denied being suicidal. He just states he said this to get attention. Patient no longer suicidal, clinically sober. Evaluated by EPS and felt to be stable for discharge. Undiagnosed new problem with uncertain prognosis? @ -No Drug Therapy requiring intensive monitoring for toxicity (Heparin, Nitro, Insulin, Cardizem)? @ -No Were any procedures done? @ -No Diagnosis/symptom? @ -Depression Acute, or Chronic, or Acute on Chronic? @ -[Acute Uncomplicated (without systemic symptoms) or Complicated (systemic symptoms)? @ -default Side effects of treatment? @ -No Exacerbation, Progression, or Severe Exacerbation? @ -No Poses a threat to life or bodily function? How? (Chest pain, [place], [place], pneumonia, PE, COPD, DKA, ARF, appy, cholecystitis, CVA, Diverticulitis, Homicidal, Suicidal, threat to staff... and all critical care pts) @ -[Low risk at this time - Lab Data Lab Results 09/09/22 Range/Units 20:17 Urine Opiates Screen Not Detected (NotDetected) Ur Oxycodone Screen Not Detected (NotDetected) Urine Methadone Screen Not Detected (NotDetected) Ur Propoxyphene Screen Not Detected (NotDetected) Ur Barbiturates Screen Not Detected (NotDetected) U Tricyclic Antidepress Not Detected (NotDetected) Ur Phencyclidine Scrn Not Detected (NotDetected) Ur Amphetamines Screen Not Detected (NotDetected) U Methamphetamines Scrn Not Detected (NotDetected) U Benzodiazepines Scrn Not Detected (NotDetected) Urine Cocaine Screen Not Detected (NotDetected) U Marijuana (THC) Screen Detected H (NotDetected) Disposition Clinical Impression: Depression, Alcoholic intoxication Disposition: HOME SELF-CARE Condition: Fair Instructions (If sedation given, give patient instructions): Depression (ED), Alcohol Intoxication (DC) Is patient prescribed a controlled substance at d/c from ED?: No Referrals: Concetta Doe MD [Primary Care Provider] - 1-2 days Time of Disposition: 04:31
[2022-09-10 04:48] VITALS: BP 130/86; PULSE 54; TEMP 97.7
== END 2022-09-10 04:49 | disposition home or self-care (01) ==
LOC: EC 19:21
DX: F32.A Depression, unspecified (principal); F10.129 Alcohol abuse with intoxication, unspecified; K21.9 Gastro-esophageal reflux disease without esophagitis; I10 Essential (primary) hypertension; F17.200 Nicotine dependence, unspecified, uncomplicated; F12.90 Cannabis use, unspecified, uncomplicated; Z79.899 Other long term (current) drug therapy; Z88.8 Allergy status to other drugs, medicaments and biological substances; Z86.16 Personal history of COVID-19
CPT/HCPCS: 80306; 82075; 99285

== ENCOUNTER → 2022-09-11 | Outpatient (CLI) | payer OTHER ==
--- NOTE | 2022-09-11 15:32 | US ---
EXAMINATION TYPE: US liver DATE OF EXAM: 09/11/2022 COMPARISON: CT 03/17/2022 CLINICAL INDICATION: Male, 46 years old with history of K70.30 ALCOHOLIC CIRRHOSIS OF LIVER; cirrhosi s, no symptoms TECHNIQUE: Multiple sonographic images of the right upper quadrant are obtained. FINDINGS: EXAM MEASUREMENTS: Liver Length: 18.7 cm Gallbladder Wall: 0.2 cm CBD: 0.8 cm Right Kidney: 11.7 x 5.7 x 6.5 cm AIRCRAFT INSPECTION RECORD CLERK NOTES: bowel gas limits views Pancreas: not seen due to gas Liver: Intercostal imaging appeared wnl Gallbladder: wnl Evidence for sonographic Brown's sign: no CBD: Probably dilated Right Kidney: 2.8 x 1.4 x 1.5cm centrally located cyst as noted on CT. No hydronephrosis. IMPRESSION: 1. No gallstones. 2. Bile duct measures 8 mm in caliber, mildly dilated. This may be normal and chronic for the patient . Correlate with alkaline phosphatase and bilirubin levels to exclude early biliary obstruction.
== END | disposition home or self-care (01) ==
LOC: RADUSWWP 08:57
PROVIDERS: ATTEND Internal Medicine Gastroenterology
DX: K70.30 Alcoholic cirrhosis of liver without ascites (principal); K83.8 Other specified diseases of biliary tract
CPT/HCPCS: 76705

== ENCOUNTER → 2022-09-24 | Day surgery (SDC) | payer OTHER ==
[~2022-09-24] MED LIST changes: +LACTATED RINGERS 1,000 ML IV ONE; +LACTATED RINGERS 1,000 ML IV SCH; +LIDOCAINE 2% INJ 20 MG/ML (2 ML VIAL) ONE; +PROPOFOL 10 MG/ML 20 ML VIAL IV ONE
[2022-09-24 06:29] VITALS: TEMP 97.7
--- NOTE | 2022-09-24 07:23 | P.PCN ---
Date of Procedure: 09/24/22 Procedure(s) Performed: Brief history: Patient is a pleasant 46-year-old white male scheduled for an elective upper endoscopy as well as colonoscopy as a part of evaluatfollow-up esophageal varices and screening for colon cancer.. His last EGD with variceal ligation was performed in September 2021. He has history of alcoholic liver disease with cirrhosis of the liver. Procedure performed: Esophagogastroduodenoscopy Colonoscopy Preoperative diagnosis: Follow-up esophageal varices Screening for colon cancer Anesthesia: MAC Procedure: After informed consent was obtained from the patient was brought into the endoscopy unit and IV sedation was administered by anesthesia under continuous monitoring. Initially upper endoscopy was done. The Olympus GF 160 video endoscope was inserted inserted into the mouth and esophagus intubated without any difficulty and was gradually advanced into the stomach and duodenum and carefully examined. The bulb and second part of the duodenum appeared normal. The scope was then withdrawn into the stomach adequately insufflated with air and upon careful examination the antrum and body, cardia and fundus had mild hypertensive gastropathy. The scope was then withdrawn into the esophagus. The GE junction was located at 40 cm to the incisors. It appeared regular with no erythema erosions or ulcerations. Rest of the esophagus appeared normal. the very small distal esophageal varices identified. No ligation was performed. Patient tolerated the procedure well. At this time the patient continued to remain sedation. Initial digital rectal examination was normal. Olympus CF 160 video colonoscope was then inserted into the rectum and gradually advanced to the cecum without any difficulty. Careful examination was performed as the scope was gradually being withdrawn. The prep was excellent. The cecum, ascending colon, transverse colon, descending colon, sigmoid colon and rectum appeared normal. Retroflexion was performed in the rectum and no lesions were noted. Patient tolerated the procedure well. Impression: 1. Upper endoscopy revealed very small distal esophageal varices and mild portal hypertensive gastropathy 2. Colonoscopy was within normal limits with no evidence of colorectal neoplasia Recommendations: Findings of this examination were discussed with the patient as well a his family. He was advised to have a repeat upper endoscopy in 1 year and repeat colonoscopy in 10 years.
[2022-09-24 07:28] VITALS: RESP 14
[2022-09-24 07:42] VITALS: BP 126/89; PULSE 80
== END ==
LOC: ORWHC2ENDO 05:59
PROVIDERS: ATTEND Internal Medicine Gastroenterology
DX: Z12.11 Encounter for screening for malignant neoplasm of colon (principal); I85.01 Esophageal varices with bleeding; I10 Essential (primary) hypertension; Z87.891 Personal history of nicotine dependence; K21.9 Gastro-esophageal reflux disease without esophagitis; Z79.899 Other long term (current) drug therapy
CPT/HCPCS: 45378; 43235; J2704; J2001

== ENCOUNTER → 2023-01-20 | Outpatient (CLI) | payer OTHER | END | disposition home or self-care (01) | LOC: LABWHC1 15:28 | PROVIDERS: ATTEND Internal Medicine Gastroenterology | DX: R77.2 Abnormality of alphafetoprotein (principal) | CPT/HCPCS: 36415; 82105 ==

== ENCOUNTER → 2023-02-25 | Outpatient (CLI) | payer OTHER ==
--- NOTE | 2023-02-25 09:17 | US ---
EXAMINATION TYPE: US thyroid st tissue head/neck DATE OF EXAM: 02/25/2023 COMPARISON: NONE CLINICAL INDICATION: Male, 47 years old with history of R13.12 DYSPHAGIA, OROPHARYNGEAL PHASE; Patien t states he feels like he has something at his throat that gets stuck and/or feels like there is some thing there. TECHNIQUE: Multiple sonographic images taken of patients neck FINDINGS: Patients neck scanned. No prominent masses or lesions identified at time of scan. Portions of the thyroid visualized appear normal. IMPRESSION: 1. No suspicious soft tissue abnormality identified.
--- NOTE | 2023-02-25 15:23 | FL ---
EXAMINATION TYPE: FL barium swallow DATE OF EXAM: 02/25/2023 COMPARISON: None HISTORY: Dysphasia TECHNIQUE: Double air contrast technique FINDINGS: Aspiration occurred with liquids. Esophagus dilates to normal caliber in its normal contour to the gastroesophageal junction. Gastroeso phageal junction opens to normal caliber. No intraluminal or extramural defects are evident. Few tertiary contractions are evident with some presbyesophagus.. There appears to be complete stripp ing esophageal bolus horizontal drinking position. IMPRESSION: 1. Some aspiration evident during the exam. 2. Mild presbyesophagus
== END | disposition home or self-care (01) ==
LOC: RADUSWWP 08:19
PROVIDERS: ATTEND Family Medicine
DX: R13.12 Dysphagia, oropharyngeal phase (principal); K22.89 Other specified disease of esophagus
CPT/HCPCS: 74220; 76536

== ENCOUNTER → 2023-02-25 | Outpatient (CLI) | payer OTHER ==
--- NOTE | 2023-02-25 09:16 | US ---
EXAMINATION TYPE: US liver DATE OF EXAM: 02/25/2023 COMPARISON: CLINICAL INDICATION: Male, 47 years old with history of K70.30 ALCOHOLIC CIRRHOSIS OF LIVER WITHOUT A SCITE; Routine per patient. TECHNIQUE: Multiple sonographic images of the right upper quadrant are obtained. FINDINGS: EXAM MEASUREMENTS: Liver Length: 19.3 cm Gallbladder Wall: 0.2 cm CBD: 0.9 cm Right Kidney: 12.9 x 5.6 x 6.2 cm Pancreas: Limited visualization due to overlying bowel gas Liver: Enlarged in size. Appears echogenic and coarse compatible with mild fatty liver. Gallbladder: Enlarged in size= 12.1 cm Evidence for sonographic Brown's sign: neg CBD: Dilated Right Kidney: Possible prominent pyramid vs cyst = 2.5 x 1.1 cm IMPRESSION: 1. Hepatomegaly with mild fatty infiltration liver.
== END | disposition home or self-care (01) ==
LOC: RADUSWWP 08:22
PROVIDERS: ATTEND Internal Medicine Gastroenterology
DX: K76.0 Fatty (change of) liver, not elsewhere classified (principal); R16.0 Hepatomegaly, not elsewhere classified; K70.30 Alcoholic cirrhosis of liver without ascites
CPT/HCPCS: 76705

== ENCOUNTER → 2023-04-15 | Outpatient (CLI) | payer OTHER ==
[2023-04-15 15:47] LABS: HCT 43.1 % (39.6-50.0); HGB 14.3 g/dL (13.0-17.0); MCH 32.2 pg (27.0-32.0); MCHC 33.2 g/dL (32.0-37.0); MCV 97.1 FL (80.0-97.0); Mean Platelet Volume 10.1 FL (9.5-12.2); NRBC Per 100 WBC 0 X 10*3/uL (0.00-0.01); Platelet Count 253 X 10*3/uL (140-440); RBC 4.44 X 10*6/uL (4.40-5.60); RDW 13.2 % (11.5-14.5)
[2023-04-15 16:54] LABS: ALT 29 U/L (10-49); AST 34 U/L (14-35); Albumin 3.7 g/dL (3.8-4.9); Albumin/Globulin Ratio 1.37 Ratio (1.60-3.17); Alkaline Phosphatase 89 U/L (41-126); Blood Urea Nitrogen 4.8 mg/dL (9.0-27.0); Calcium 8.9 mg/dL (8.7-10.3); Carbon Dioxide 23.2 mmol/L (21.6-31.8); Chloride 108 mmol/L (96-109); Globulin 2.7 g/dL (1.6-3.3); Glucose 99 mg/dL (70-110); Potassium 4.3 mmol/L (3.5-5.5); Sodium 142 mmol/L (135-145); Total Bilirubin <0.2 mg/dL (0.3-1.2); Total Protein 6.4 g/dL (6.2-8.2)
== END | disposition home or self-care (01) ==
LOC: LABWHC1 08:04
PROVIDERS: ATTEND Internal Medicine Gastroenterology
DX: K70.30 Alcoholic cirrhosis of liver without ascites (principal)
CPT/HCPCS: 36415; 80053; 82105; 85027

== ENCOUNTER → 2023-04-16 | Outpatient (CLI) | payer OTHER ==
--- NOTE | 2023-04-16 22:41 | US ---
EXAMINATION TYPE: US liver DATE OF EXAM: 04/16/2023 COMPARISON: 02/25/2023 CLINICAL INDICATION: Male, 47 years old with history of K70.30 ALCOHOLIC CIRRHOSIS OF LIVER WITHOUT A SCITES; Abnormal labs. TECHNIQUE: Multiple sonographic images of the right upper quadrant are obtained. FINDINGS: EXAM MEASUREMENTS: Liver Length: 19.2 cm Gallbladder Wall: 0.2 cm CBD: 0.6 cm Right Kidney: 11.5 x 5.5 x 5.3 cm Pancreas: Obscured by bowel gas Liver: Enlarged in size. Attenuating with coarsened appearance. Slight nodular contour. No focal les ion identified. Gallbladder: No stones or wall thickening seen. Evidence for sonographic Brown's sign: neg CBD: Borderline dilated. Right Kidney: Possible prominent pyramid vs cyst= 2.1 x 1.2 x 1.4 cm IMPRESSION: 1. Mild hepatomegaly at 19.2 cm. Suspect underlying hepatic steatosis along with cirrhosis given nodu lar contour. No sonographic evidence for hepatoma. 2. No gallstones. 3. Borderline dilated bile duct at 6 mm may be chronic from the patient. Correlate with alkaline phos phatase and bilirubin levels. We see that it was measuring up to 9 mm previously on 02/25/2023.
== END | disposition home or self-care (01) ==
LOC: RADUSWWP 07:59
PROVIDERS: ATTEND Internal Medicine Gastroenterology
DX: K70.30 Alcoholic cirrhosis of liver without ascites (principal); K83.8 Other specified diseases of biliary tract
CPT/HCPCS: 76705

== ENCOUNTER 2023-06-02 13:34 | Emergency (ER) | payer OTHER ==
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
--- NOTE | 2023-06-02 15:07 | XR ---
EXAMINATION TYPE: XR wrist complete 4 views LT, XR hand complete 3 views LT DATE OF EXAM: 06/02/2023 COMPARISON: NONE HISTORY: 47-year-old male pain after fall, injury FINDINGS: Wrist: The radiocarpal and distal radial ulnar joint as well as the midcarpal compartment appear intact. The re is subtle lucency at the tip of the radial styloid process which may be projectional. Otherwise, n o acute fracture, subluxation, or dislocation seen. Hand: There is a nondisplaced fracture through the waist of the scaphoid bone. There is moderate degenerati ve change at the first CMC joint and mild at the triscaphe joint. Mild of the first MTP joint. IMPRESSION: Hand and wrist: Nondisplaced transverse fracture through the waist of the scaphoid bone. Possible tin y chip fracture at the tip of the radial styloid process. Osteoarthritic change at the base of the th umb.
[2023-06-02 16:04] VITALS: BP 154/89; PULSE 92; RESP 18; TEMP 97.8
== END 2023-06-02 15:48 | disposition home or self-care (01) ==
LOC: EC 13:34
DX: S62.002A Unspecified fracture of navicular [scaphoid] bone of left wrist, initial encounter for closed fracture (principal); S80.212A Abrasion, left knee, initial encounter; S80.211A Abrasion, right knee, initial encounter; S60.419A Abrasion of unspecified finger, initial encounter; F17.200 Nicotine dependence, unspecified, uncomplicated; F12.90 Cannabis use, unspecified, uncomplicated; Z88.8 Allergy status to other drugs, medicaments and biological substances; V19.9XXA Pedal cyclist (driver) (passenger) injured in unspecified traffic accident, initial encounter; Y93.55 Activity, bike riding
CPT/HCPCS: 29125; 99284

== ENCOUNTER 2023-09-14 22:01 | Emergency (ER) | payer OTHER ==
[2023-09-14 22:06] VITALS: RESP 18; TEMP 98.1
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
--- NOTE | 2023-09-15 00:27 | XR ---
EXAM: XR Left Wrist Complete, 3 or More Views CLINICAL HISTORY: ITS.REASON XR Reason: pain TECHNIQUE: Frontal, lateral, scaphoid, oblique views of the left wrist. COMPARISON: 06/02/23 FINDINGS: Bones/joints: Interval healing of scaphoid waist fracture. No new fracture. No dislocation. Soft tissues: Unremarkable. No radiopaque foreign body. IMPRESSION: Interval healing of scaphoid waist fracture. No new fracture. No dislocation.
[2023-09-15 00:36] VITALS: BP 127/83; PULSE 77
== END 2023-09-15 00:36 | disposition home or self-care (01) ==
LOC: EC 22:01
DX: S63.502A Unspecified sprain of left wrist, initial encounter (principal); F17.200 Nicotine dependence, unspecified, uncomplicated; Z86.16 Personal history of COVID-19; Z88.8 Allergy status to other drugs, medicaments and biological substances; V18.0XXA Pedal cycle driver injured in noncollision transport accident in nontraffic accident, initial encounter
CPT/HCPCS: 99283

== ENCOUNTER → 2023-09-23 | Outpatient (CLI) | payer OTHER ==
--- NOTE | 2023-10-20 13:14 | US ---
Site ID [facility] Patient Isaiah Melo W ID [id number] Age/Gender: 47Y, M Order # N/A Procedure US LIVER Date 09/23/2023 9:00:00 AM INDICATION: Patient age: Male; 47 year old; Reason for study: Cirrhosis COMPARISON: Multiple liver ultrasounds with most recent 04/16/2023, 03/17/2022 TECHNIQUE: Multiple grayscale and color doppler ultrasound images of the right upper abdomen obtained utilizing transabdominal imaging. FINDINGS: PANCREAS: Limited evaluation of the pancreas secondary to bowel. LIVER: The liver demonstrates coarsened and hyperechoic echotexture with nodular border. Note that increased echogenicity limits evaluation for focal hepatic lesions. Measures 14.6 cm in greatest dimension. GALLBLADDER: The gallbladder is without evidence of wall thickening, pericholecystic fluid, or cholelithiasis. The common duct measures approximately 6 mm which is at the top end of the normal. Per state tested nursing assistant, the sonographic Brown's sign was negative. RIGHT KIDNEY: The right kidney measures 11.6 x 5.2 x 5.0 cm, without evidence of hydronephrosis, shadowing calculus , or contour deforming solid mass. Renal parenchymal echogenicity is within normal limits. No visualized ascites within the right upper quadrant. IMPRESSION: Hepatic cirrhosis without ultrasound evidence for focal lesion.
== END | disposition home or self-care (01) ==
LOC: RADUSWWP 08:30
PROVIDERS: ATTEND Internal Medicine Gastroenterology
DX: K74.60 Unspecified cirrhosis of liver (principal)
CPT/HCPCS: 76705

== ENCOUNTER → 2024-03-18 | Outpatient (CLI) | payer OTHER ==
--- NOTE | 2024-03-18 09:55 | US ---
EXAMINATION TYPE: US liver DATE OF EXAM: 03/18/2024 COMPARISON: 09/23/2023 CLINICAL INDICATION: Male, 48 years old with history of K70.30 ALCOHOLIC CIRRHOSIS OF LIVER; liver US every 6 month, cirrhosis TECHNIQUE: Grayscale and color Doppler imaging of the right upper quadrant was performed. FINDINGS: EXAM MEASUREMENTS: Liver Length: 16.5 cm Gallbladder Wall: 0.3 cm CBD: 0.7 cm Right Kidney: 11.3 x 5.2 x 5.2 cm Pancreas: Most of the pancreas is visualized and shows no gross abnormality. Liver: Very heterogeneous parenchyma with nodular hepatic contour. No suspicious hypoechoic lesion is seen. Gallbladder: wnl Evidence for sonographic Brown's sign: no CBD: wnl Right Kidney: wnl IMPRESSION: No sonographic evidence for hepatoma. Cirrhotic morphology of the liver. [facility] David Chacko, Workstation: [email or web address], 03/18/2024 9:52 AM
== END | disposition home or self-care (01) ==
LOC: RADUSWWP 09:12
PROVIDERS: ATTEND Internal Medicine Gastroenterology
DX: K70.30 Alcoholic cirrhosis of liver without ascites (principal)
CPT/HCPCS: 76705

== ENCOUNTER 2024-05-13 02:07 | Emergency (ER) | payer OTHER ==
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
[2024-05-13 03:32] VITALS: BP 112/76; PULSE 106; RESP 18; TEMP 98.6
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
== END 2024-05-13 03:27 | disposition home or self-care (01) ==
LOC: EC 02:07
DX: S20.212A Contusion of left front wall of thorax, initial encounter (principal); F17.200 Nicotine dependence, unspecified, uncomplicated; Z88.8 Allergy status to other drugs, medicaments and biological substances; Z86.16 Personal history of COVID-19; Y04.8XXA Assault by other bodily force, initial encounter
CPT/HCPCS: 71111; 99284